=== PATIENT | female | born 1975 | race Caucasian/White ===

== ENCOUNTER 2021-12-03 18:21 | Inpatient (IN) ==
[2021-12-03] MEDS ORDERED: ZOFRAN INJ 4 MG VIAL ONE ×2 (18:48→20:49)
[2021-12-03] MEDS ORDERED: ZOFRAN INJ 4 MG VIAL IVP ONE ×2 (18:48→20:47)
[2021-12-03] MEDS ORDERED: APRESOLINE INJ 20 MG VIAL IVP ONE (19:46)
[2021-12-03] MEDS ORDERED: NS 1,000 ML IV 1,000 ML IV ONE (19:46)
[2021-12-03] MEDS ORDERED: APRESOLINE INJ 20 MG VIAL ONE (19:47)
[2021-12-03] MEDS ORDERED: NS 1,000 ML IV 1,000 ML ONE (19:47)
[2021-12-03 19:58] LABS: HEMOGLOBIN 10.9 g/dL (12.0-16.0); MEAN PLATELET VOLUME 7.7 fL (7.4-11.0); NEUTROPHILS # (AUTO) 7.8 x10^3/uL (2.2-4.8)
[2021-12-03] MEDS ORDERED: LEVSIN ORAL DROPS PO ONE (19:59)
[2021-12-03 20:02] LABS: BASOPHILS % (AUTO) 0.4 % (0.2-1.0); EOSINOPHILS % (AUTO) 0.1 % (0.9-2.9); HEMATOCRIT 31.6 % (36.0-47.0); LYMPHOCYTES # (AUTO) 0.9 X10^3/uL (1.3-2.9); LYMPHOCYTES % (AUTO) 9.9 % (21.0-51.0); MEAN CORPUSCULAR HEMOGLOBIN 31.8 pg (27.0-34.0); MEAN CORPUSCULAR HGB CONC 34.6 g/dL (33.0-35.0); MEAN CORPUSCULAR VOLUME 91.9 fL (80.0-100.0); MONOCYTES # (AUTO) 0.5 x10^3/uL (0.3-0.8); MONOCYTES % (AUTO) 5.8 % (0.0-13.0); NEUTROPHILS % (AUTO) 83.8 % (42.0-75.0); RED BLOOD COUNT 3.44 X10^6/uL (3.5-5.4); RED CELL DISTRIBUTION WIDTH 13.5 % (11.6-16.5); WHITE BLOOD COUNT 9.3 X10^3/uL (3.6-10.0)
[2021-12-03 20:05] LABS: ALANINE AMINOTRANSFERASE 83 Units/L (12-78); ALKALINE PHOSPHATASE 98 Units/L (46-116); AMYLASE 60 Units/L (25-115); ASPARTATE AMINO TRANSFERASE 34 Units/L (15-37); BLOOD UREA NITROGEN 6 mg/dL (7-18); CALCIUM 8.8 mg/dL (8.5-10.1); CARBON DIOXIDE 27.6 mmol/L (21-32); CHLORIDE 105 mmol/L (98-107); CREATININE 0.65 mg/dL (0.55-1.02); LIPASE 173 Units/L (73-393); SODIUM 142 mmol/L (136-145); TOTAL PROTEIN 7.6 g/dL (6.4-8.2); eGFR NON BLACK RACES > 60 (>60)
[2021-12-03] MEDS ORDERED: TORADOL 30 MG VIAL IVP ONE (20:26)
[2021-12-03] MEDS ORDERED: TORADOL 30 MG VIAL ONE (20:28)
[2021-12-03 20:30] LABS: MAGNESIUM 2.2 mg/dL (1.7-2.9); TSH (3RD GENERATION) 1.311 uIU/mL (0.358-3.74)
[2021-12-03] MEDS ORDERED: MORPHINE SULFATE INJ 2 MG INJ IVP ONE (20:47)
[2021-12-03] MEDS ORDERED: MORPHINE SULFATE INJ 2 MG INJ ONE (20:48)
--- NOTE | 2021-12-03 20:51 | ED.ABDFE ---
HPI Time Seen Time Seen by Provider: 12/03/21 19:44 PCP Primary Care Physician: LUCILA STONE HPI Comment HPI Comment: According to pt she was feeling better over the last 3-4 days after being transfererd from [facility] to [place] on 11/23 2021 .Pt completed the course of flagyl and cipro .Started with nausea vomiting and gnawing of abdomianl pain approx 3 days has gradually worsened.hence the visit .Furthermore due to pt experiencing hypotension ,her bp medication of lisinopril/hctz ()was decreased to 1/2 of of the dose.Pt was not given prescription for it and has not been taking any bp medication for over a week .concerned that her bp may drop . Complaint Doctors Chief Complaint Comments: abdominal pain Chief Complaint:: PT STATES THAT AROUND 3AM SHE HAD SUDDEN ONSET OF NAUSEA AND VOMITING,DIARRHEA, INABILITY TO KEEP LIQUIDS DOWN, AND INTERMITTENT PERIUM BILICAL GNAWLING PAIN THAT IS WORSE WITH FOOD. Self Treatment fo Chief Complaint: IBUPROFEN AT 4PM COVID-19 Coronavirus risk:travel/contact w/high risk person: No Has patient experienced Coronavirus symptoms: No Reviewed Nurses Notes Review: Yes Source History Provided: Patient Mode of arrival Mode of Arrival: Ambulatory Timing Onset of Chief Complaint: 12/03/21 Came on: Gradually Duration Since Onset: Intermittent Duration: Days Location Location: RUQ, Epigastric and Periumbilical Severity Severity: Severe Quality Quality: Other (gnawing ) Context History of: Similar pain (dx) Modifying factors Worsening Factors: Food Improving Factors: Nothing Associated signs and symptoms Associated Signs and Symptoms: Nausea and Vomiting PMH PMH Past Medical History: Yes Past Medical History: Migraines, Hypertension and Hypothyroidism Past Medical History Comment: SEASONAL ALLERGIES, INSOMNIA Past Surgical History: No Surgical History: No History Family History History of Family Medical Conditions: Yes Family Medical History: Hypertension Family Medical History Comment: HYPOTHYROIDISM, MIGRAINES Social History Does patient currently use any type of tobacco product: No Have you used tobacco products in the last 12 months: No Type of Tobacco Use: None Does any household member use tobacco: No Alcohol Use: None Do you use any recreational Drugs:: No Lives With: Family Lives Where: Home Travel Risk Coronavirus risk:travel/contact w/high risk person: No Has patient experienced Coronavirus symptoms: No Infectious screening In the last 2 months have you had wt loss of >10#?: NO Have you had fever, night sweats or hemotysis?: No Have you traveled outside the country in the last 6 months?: No Isolation: Standard ROS Review of Systems Constitutional: No Symptoms Reported, Malaise, Weakness and Fatigue Eyes: See HPI ENTM: No Symptoms Reported Respiratoy: No Symptoms Reported Cardiovascular: No Symptoms Reported Gastrointestinal/Abdominal: See HPI Genitourinary: No Symptoms Reported Neurological: No Symptoms Reported Musculoskeletal: No Symptoms Reported Integumentary: No Symptoms Reported Hematologic/Lymphatic: No Symptoms Reported Endocrine: No Symptoms Reported Psychiatric: No Symptoms Reported PE Vital Signs Vitals: Temperature 97.8 F Pulse Rate 109 Respiratory Rate 14 Blood Pressure [Left Arm] 82/53 Blood Pressure 197/101 O2 Sat by Pulse Oximetry 99 General Limitations: No Limitations General Appearance: In Distress Head Head Exam: Atraumatic and Normocephalic Eyes Eye exam: PERRL and Other (pallor ) ENT ENT Exam: Mucous Membranes Moist Neck Neck Exam: Normal Inspection and Full ROM Chest Chest Inspection: Normal Inspection and Symmetric Chest Wall Rise Respiratory Respiratory Exam: Normal Lung Sounds Bilat Respiratory Exam: Bilateral: Clear to Auscultation Cardiovascular Cardiovascular Exam: +S1 and +S2 Abdominal Exam Abdominal Exam: Soft and Tenderness Abdominal Tenderness: RUQ and Epigastrium Extremeties Extremities Exam: Normal Inspection and Full ROM Neurologic Neurological Exam: Alert Skin Skin Exam: Pallor MDM Additional Information Obtained From Additional information provided by: Old Records Differential Diagnosis Differential Diagnosis- Considerations may include:: Other (comments) (hypertensive urgency ) Other differential diagnosis: abdominal pain gastritis,PUD pancreatitis ,gastroenetritis due to flagyl , COURSE Treatment Treatment: CBC,CMP,TSH ,iv TORADOL No impovementin pain ,Morphine 2 mg IV ,apresoline 10 mg .IV protonix .spoke with Dr Masters agreed to admit patinet for hypertensive urgency ,anemia ,abdomianl pain ,hypokalemia ROR Labs Reviewed Laboratory Results Reviewed?: Yes Result Diagrams: 12/03/21 18:47 12/03/21 18:47 Laboratory: WBC 9.3 X10^3/uL (3.6-10.0) 12/03/21 18:47 RBC 3.44 X10^6/uL (3.5-5.4) L 12/03/21 18:47 Hgb 10.9 g/dL (12.0-16.0) L 12/03/21 18:47 Hct 31.6 % (36.0-47.0) L 12/03/21 18: MCV 91.9 fL (80.0-100.0) 12/03/21 18: MCH 31.8 pg (27.0-34.0) 12/03/21 18: MCHC 34.6 g/dL (33.0-35.0) 12/03/21 18: RDW 13.5 % (11.6-16.5) 12/03/21 18: Plt Count 459 X10^3/uL (150.0-450.0) H 12/03/21 18: MPV 7.7 fL (7.4-11.0) 12/03/21 18: Neut % (Auto) 83.8 % (42.0-75.0) H 12/03/21 18: Lymph % (Auto) 9.9 % (21.0-51.0) L 12/03/21 18:47 [place] % (Auto) 5.8 % (0.0-13.0) 12/03/21 18: Eos % (Auto) 0.1 % (0.9-2.9) L 12/03/21 18: Baso % (Auto) 0.4 % (0.2-1.0) 12/03/21 18:47 Neut # (Auto) 7.8 x10^3/uL (2.2-4.8) H 12/03/21 18:47 Lymph # (Auto) 0.9 X10^3/uL (1.3-2.9) L 12/03/21 18:47 [place] # (Auto) 0.5 x10^3/uL (0.3-0.8) 12/03/21 18: Eos # (Auto) 0.0 x10^3/uL (0.0-0.2) 12/03/21 18: Baso # (Auto) 0.0 X10^3/uL (0.0-0.1) 12/03/21 18: Absolute Nucleated RBC 0.2 /100WBC 12/03/21 18: Sodium 142 mmol/L (136-145) 12/03/21 18:47 Corrected Sodium TNP 12/03/21 18:47 Potassium 3.0 mmol/L (3.5-5.1) L* 12/03/21 18:47 Chloride 105 mmol/L (98-107) 12/03/21 18:47 Carbon Dioxide 27.6 mmol/L (21-32) 12/03/21 18:47 BUN 6 mg/dL (7-18) L 12/03/21 18:47 Creatinine 0.65 mg/dL (0.55-1.02) 12/03/21 18:47 Est GFR (MDRD) Af Amer > 60 (>60) 12/03/21 18:47 Est GFR (MDRD) Non-Af > 60 (>60) 12/03/21 18:47 Glucose 105 mg/dL (65-99) H 12/03/21 18:47 Calcium 8.8 mg/dL (8.5-10.1) 12/03/21 18:47 Corrected Calcium TNP 12/03/21 18:47 Magnesium 2.2 mg/dL (1.7-2.9) 12/03/21 18:47 Total Bilirubin 0.90 mg/dL (0.2-1.0) 12/03/21 18:47 AST 34 Units/L (15-37) 12/03/21 18:47 ALT 83 Units/L (12-78) H 12/03/21 18:47 Alkaline Phosphatase 98 Units/L (46-116) 12/03/21 18:47 Total Protein 7.6 g/dL (6.4-8.2) 12/03/21 18:47 Albumin 4.0 g/dL (3.4-5.0) 12/03/21 18:47 Globulin 3.6 g/dL (2.5-4.5) 12/03/21 18:47 Albumin/Globulin Ratio 1.1 Ratio (1.1-2.1) 12/03/21 18:47 Amylase 60 Units/L (25-115) 12/03/21 18:47 Lipase 173 Units/L (73-393) 12/03/21 18:47 TSH 3rd Generation 1.311 uIU/mL (0.358-3.74) 12/03/21 18:47 SARS CoV-2 RNA Rapid MACK Negative (NEGATIVE) 12/03/21 20:49 Opioid Opioid Risk Tool Age (Omid box if 16-45): No History of Preadolescent Sexual Abuse: No Total: 0 Total Score Risk Category: Low Risk Copyright: Sai MUNGUIA predicting aberrant behaviors Diagnosis Discharge Problem: Hypokalemia, Abdominal pain, Acute epigastric pain, Anemia, Hypertensive urgency Instructions Forms: [facility] Patient Portal Social Distancing
[2021-12-03] MEDS ORDERED: NS + KCL 40 MEQ/L 1,000 ML IV ONE (20:59)
[2021-12-03] MEDS: NS + KCL 40 MEQ/L 1,000 ML IV SCH (21:07)
[2021-12-03] MEDS ORDERED: XYLOCAINE 2 % (PLAIN) ONE (21:36)
[2021-12-03] MEDS: PROTONIX INJ 40 MG VIAL IVP SCH (22:47)
[2021-12-04] MEDS: MORPHINE SULFATE INJ 2 MG INJ IVP PRN ×6 (00:52→21:32)
[2021-12-04] MEDS: NS + KCL 40 MEQ/L 1,000 ML IV SCH ×2 (00:59→05:09)
[2021-12-04 04:59] LABS: BASOPHILS # (AUTO) 0.1 X10^3/uL (0.0-0.1); BASOPHILS % (AUTO) 0.8 % (0.2-1.0); EOSINOPHILS % (AUTO) 0.3 % (0.9-2.9); HEMATOCRIT 24.8 % (36.0-47.0); HEMOGLOBIN 8.6 g/dL (12.0-16.0); LYMPHOCYTES # (AUTO) 1.3 X10^3/uL (1.3-2.9); LYMPHOCYTES % (AUTO) 18.1 % (21.0-51.0); MEAN CORPUSCULAR HEMOGLOBIN 32.3 pg (27.0-34.0); MEAN CORPUSCULAR HGB CONC 34.7 g/dL (33.0-35.0); MEAN CORPUSCULAR VOLUME 93.1 fL (80.0-100.0); MEAN PLATELET VOLUME 7.3 fL (7.4-11.0); MONOCYTES # (AUTO) 0.6 x10^3/uL (0.3-0.8); MONOCYTES % (AUTO) 8.5 % (0.0-13.0); NEUTROPHILS # (AUTO) 5.1 x10^3/uL (2.2-4.8); NEUTROPHILS % (AUTO) 72.3 % (42.0-75.0); RED BLOOD COUNT 2.66 X10^6/uL (3.5-5.4); RED CELL DISTRIBUTION WIDTH 13.5 % (11.6-16.5)
[2021-12-04 05:04] LABS: BLOOD UREA NITROGEN 7 mg/dL (7-18); CALCIUM 7.6 mg/dL (8.5-10.1); CARBON DIOXIDE 23.2 mmol/L (21-32); CHLORIDE 113 mmol/L (98-107); CREATININE 0.53 mg/dL (0.55-1.02); SODIUM 146 mmol/L (136-145); eGFR NON BLACK RACES > 60 (>60)
[2021-12-04] MEDS: PROTONIX INJ 40 MG VIAL IVP SCH (08:45)
[2021-12-04] MEDS: SYNTHROID 88 mcg TAB PO SCH (08:45)
[2021-12-04 10:42] LABS: SERUM PREGNANCY TEST, QUAL NEGATIVE <10 mIU/mL
[2021-12-04] MEDS: NS 1,000 ML IV 1,000 ML IV SCH (11:10)
[2021-12-04] MEDS ORDERED: KETAMINE 50 MG/5 ML-NACL SYRNG ONE (14:57)
[2021-12-04] MEDS ORDERED: DIPRIVAN VIAL 20 ML ONE (14:57)
[2021-12-04] MEDS ORDERED: VERSED ONE (15:28)
[2021-12-04] MEDS ORDERED: APRESOLINE INJ 20 MG VIAL ONE ×2 (15:45)
[2021-12-04] MEDS: APRESOLINE INJ 20 MG VIAL IVP PRN ×2 (16:17→21:40)
[2021-12-04] MEDS ORDERED: ZOFRAN INJ 4 MG VIAL IVP ONE (16:24)
[2021-12-04] MEDS ORDERED: ZOFRAN INJ 4 MG VIAL ONE ×2 (16:26→23:05)
[2021-12-04 21:07] VITALS: BMI 19.1
[2021-12-04] MEDS: ZOFRAN INJ 4 MG VIAL IVP PRN (23:10)
[2021-12-05] MEDS: NS 1,000 ML IV 1,000 ML IV SCH ×2 (00:09→17:36)
[2021-12-05] MEDS: MORPHINE SULFATE INJ 2 MG INJ IVP PRN ×4 (01:21→22:48)
[2021-12-05] MEDS: APRESOLINE INJ 20 MG VIAL IVP PRN ×5 (02:15→21:14)
[2021-12-05] MEDS ORDERED: MORPHINE SULFATE INJ 2 MG INJ IVP ONE (03:43)
[2021-12-05] MEDS: ZOFRAN INJ 4 MG VIAL IVP PRN ×4 (04:30→23:05)
[2021-12-05 05:19] LABS: BASOPHILS # (AUTO) 0.1 X10^3/uL (0.0-0.1); BASOPHILS % (AUTO) 0.5 % (0.2-1.0); EOSINOPHILS % (AUTO) 0.1 % (0.9-2.9); HEMATOCRIT 29.2 % (36.0-47.0); HEMOGLOBIN 9.9 g/dL (12.0-16.0); LYMPHOCYTES # (AUTO) 0.8 X10^3/uL (1.3-2.9); LYMPHOCYTES % (AUTO) 6.8 % (21.0-51.0); MEAN CORPUSCULAR HEMOGLOBIN 31.6 pg (27.0-34.0); MEAN CORPUSCULAR HGB CONC 34.1 g/dL (33.0-35.0); MEAN CORPUSCULAR VOLUME 92.8 fL (80.0-100.0); MEAN PLATELET VOLUME 7.2 fL (7.4-11.0); MONOCYTES # (AUTO) 0.5 x10^3/uL (0.3-0.8); MONOCYTES % (AUTO) 4.7 % (0.0-13.0); NEUTROPHILS # (AUTO) 10.3 x10^3/uL (2.2-4.8); NEUTROPHILS % (AUTO) 87.9 % (42.0-75.0); RED BLOOD COUNT 3.15 X10^6/uL (3.5-5.4); RED CELL DISTRIBUTION WIDTH 13.5 % (11.6-16.5); WHITE BLOOD COUNT 11.7 X10^3/uL (3.6-10.0)
[2021-12-05 05:32] LABS: ALANINE AMINOTRANSFERASE 47 Units/L (12-78); ALBUMIN 3.4 g/dL (3.4-5.0); ALKALINE PHOSPHATASE 70 Units/L (46-116); ASPARTATE AMINO TRANSFERASE 22 Units/L (15-37); BLOOD UREA NITROGEN 8 mg/dL (7-18); CALCIUM 8.2 mg/dL (8.5-10.1); CARBON DIOXIDE 18.7 mmol/L (21-32); CHLORIDE 106 mmol/L (98-107); CREATININE 0.47 mg/dL (0.55-1.02); SODIUM 138 mmol/L (136-145); TOTAL PROTEIN 6.6 g/dL (6.4-8.2); eGFR NON BLACK RACES > 60 (>60)
[2021-12-05] MEDS: PHENERGAN INJ 25 MG IM PRN ×2 (07:47→15:24)
[2021-12-05] MEDS: DEMEROL INJ IVP PRN ×4 (07:48→20:24)
[2021-12-05] MEDS: PROTONIX INJ 40 MG VIAL IVP SCH (08:39)
--- NOTE | 2021-12-05 09:03 | DR.H&P ---
H&P - History & Physical for Day of: H&P Date: 12/03/21 - Chief Complaint Chief Complaint: SUDDEN ONSET OF NAUSEA AND VOMITING,DIARRHEA, INABILITY TO KEEP LIQUIDS DOWN - History of Present Illness History of Present Illness: Pt is 46 WF, ER admission with co she was feeling better over the last 3-4 days after being transfererd from [facility] to [place] on 11/23 2021 .Pt completed the course of flagyl and cipro .Started with nausea vomiting and gnawing of abdomianl pain approx 3 days has gradually worsened.hence the visit .Furthermore due to pt experiencing hypotension ,her bp medication of lisinopril/hctz ()was decreased to 1/2 of of the dose.Pt was not given prescription for it and has not been taking any bp medication for over a week, pt concerned that her bp may drop.Pt admitted for treatment and evaluation of acute illness. - Past Medical History Past Medical History: Hypertension, Hypothyroidism, Migraines - Past Surgical History Surgical History: No History - Family History Family Medical History: Hypertension - Social History Does patient currently use any type of tobacco product: No Have you used tobacco products in the last 12 months: No Type of Tobacco Use: None Does any household member use tobacco: No Alcohol Use: Occasionally Drug Use: Prescription Drugs - Medications Home Medications: No Known Drug Allergies Allergy (Verified 11/23/21 10:01) - Review of Systems Constitutional: Weakness Eyes: No Symptoms Reported ENT: No Symptoms Reported Respiratory: No Symptoms Reported Cardiovascular: No Symptoms Reported Gastrointestinal: Nausea, Vomiting, Abdominal Pain, Diarrhea Genitourinary: No Symptoms Reported Musculoskeletal: No Symptoms Reported Skin: No Symptoms Reported Neurological: No Symptoms Reported - Physical Exam Vital Signs: Temperature 97.9 F Pulse Rate 93 Respiratory Rate 17 Blood Pressure [Left Arm] 147/78 Blood Pressure 161/83 O2 Sat by Pulse Oximetry 96 Oriented: Normal Eyes: Normal Ear: Normal Nose: Normal Throat: Normal Respiratory: Clear Throughout Cardiovascular: Normal : Normal Auscultation: Bowel Sounds: Normal Palpation: Normal Tenderness: Epigastric Skin: Decreased Turgur Musculoskeletal: Normal Psychiatric: Normal Mood Description: Calm Speech Pattern: Clear, Appropriate - Assessment/Plan (1) Acute epigastric pain Status: Acute Plan: ADMIT, GI CONSULT. PPI THERAPY, BP CONTROL. GENTLE IV HYDRATION. PAIN AND NAUSEA CONTROL. I &OS, ELECTROLYTE REPLACEMENT (2) Abdominal pain Status: Acute (3) Hypertensive urgency Status: Acute (4) Gastritis Status: Acute - Allergies Allergies/Adverse Reactions: Allergies Allergy/AdvReac Type Severity Reaction Status Date / Time No Known Drug Allergies Allergy Verified 11/23/21 10:01
[2021-12-05] MEDS: SYNTHROID 88 mcg TAB PO SCH (15:24)
--- NOTE | 2021-12-05 15:26 | NM ---
HISTORY: RUQ pain, abdominal pain. Epigastric pain.EXAM: Nuclear Medicine HIDA ExamTechnique: Multiple scintigraphic images of the abdomen were obtained the intravenous administration of 5.5 mCi of technetium labeled [Choletec]. Following distention of the gallbladder with radiotracer a bottle of Ensure was given.An estimated gallbladder ejection fraction was calculated based on this physiologic response.Findings: Homogeneous uptake of radiotracer is seen throughout the liver. The intrabiliary ductal system is observed normally.The common hepatic and common bile duct grossly appear unremarkable with normal biliary-bowel transit. The gallbladder is observed to fill normally without evidence for acute cholecystitis. After the administration of ensure, however, an abnormally low gallbladder ejection fraction of 0% (normal > 35%) is observed. Although many etiologies (certain medications, cholangitis, pancreatitis, sepsis, etc.) can account for a low gallbladder ejection fraction, in the outpatient setting, the most common etiology is chronic cholecystitis.IMPRESSION:1. Hepatobiliary imaging study demonstrates no evidence for acute hepatic dysfunction or acute cholecystitis.2. Low gallbladder ejection fraction of 0%, most likely reflecting chronic cholecystitis, as discussed above.Electronically signed by: HOOD OSPINA III (Dec 05, 2021 15:25:11)
[2021-12-05] MEDS ORDERED: CATAPRES TAB 0.1 MG PO SCH (15:48)
[2021-12-05] MEDS ORDERED: PROVENTIL NEB TX 0.083% 2.5MG/ 3ML NEB ONE (17:11)
[2021-12-05] MEDS: CATAPRES TAB 0.1 MG PO PRN (17:59)
[2021-12-05] MEDS: ZOSYN VIAL 3.375 GRAMS 3.375 G in NS 100 ML IV 100 ML IV SCH (21:14)
[2021-12-05] MEDS: NS 500 ML IV 500 ML IV PRN (21:15)
[2021-12-06] MEDS: DEMEROL INJ IVP PRN ×5 (00:04→21:01)
[2021-12-06] MEDS: APRESOLINE INJ 20 MG VIAL IVP PRN ×4 (01:30→22:55)
--- NOTE | 2021-12-06 02:17 | RAD ---
PROCEDURE: Chest X-ray 1 View .HISTORY: Preoperative study for cholecystectomy.TECHNIQUE: AP view .COMPARISON: 11/23/2021.TECHNICAL QUALITY: Satisfactory .FINDINGS:Normal size heart .Mediastinum and hilar regions show no masses or lymphadenopathy .Normal central vascularity .No pulmonary consolidation, masses, pleural fluid, or pneumothorax .No acute bony abnormality .IMPRESSION:No active cardiopulmonary disease .Electronically signed by: Bill Schaffer (Dec 06, 2021 02:15:56)
[2021-12-06] MEDS: MORPHINE SULFATE INJ 2 MG INJ IVP PRN ×6 (02:38→22:59)
[2021-12-06] MEDS: ZOSYN VIAL 3.375 GRAMS 3.375 G in NS 100 ML IV 100 ML IV SCH ×5 (02:38→21:00)
[2021-12-06] MEDS: ZOFRAN INJ 4 MG VIAL IVP PRN ×4 (02:38→22:59)
[2021-12-06 04:32] LABS: BASOPHILS % (AUTO) 0.2 % (0.2-1.0); HEMATOCRIT 31.6 % (36.0-47.0); HEMOGLOBIN 10.6 g/dL (12.0-16.0); LYMPHOCYTES # (AUTO) 0.8 X10^3/uL (1.3-2.9); LYMPHOCYTES % (AUTO) 5.8 % (21.0-51.0); MEAN CORPUSCULAR HEMOGLOBIN 31.3 pg (27.0-34.0); MEAN CORPUSCULAR HGB CONC 33.5 g/dL (33.0-35.0); MEAN CORPUSCULAR VOLUME 93.4 fL (80.0-100.0); MEAN PLATELET VOLUME 7.6 fL (7.4-11.0); MONOCYTES # (AUTO) 0.7 x10^3/uL (0.3-0.8); MONOCYTES % (AUTO) 4.6 % (0.0-13.0); NEUTROPHILS % (AUTO) 89.4 % (42.0-75.0); RED BLOOD COUNT 3.39 X10^6/uL (3.5-5.4); RED CELL DISTRIBUTION WIDTH 13.6 % (11.6-16.5); WHITE BLOOD COUNT 14.5 X10^3/uL (3.6-10.0)
[2021-12-06 04:51] LABS: ALANINE AMINOTRANSFERASE 38 Units/L (12-78); ALBUMIN 3.5 g/dL (3.4-5.0); ALKALINE PHOSPHATASE 73 Units/L (46-116); ASPARTATE AMINO TRANSFERASE 17 Units/L (15-37); BLOOD UREA NITROGEN 8 mg/dL (7-18); CALCIUM 8.2 mg/dL (8.5-10.1); CARBON DIOXIDE 18.1 mmol/L (21-32); CHLORIDE 105 mmol/L (98-107); CREATININE 0.52 mg/dL (0.55-1.02); MAGNESIUM 2.1 mg/dL (1.7-2.9); SODIUM 142 mmol/L (136-145); TOTAL PROTEIN 6.8 g/dL (6.4-8.2); eGFR NON BLACK RACES > 60 (>60)
[2021-12-06] MEDS: NS 1,000 ML IV 1,000 ML IV SCH (06:12)
[2021-12-06] MEDS ORDERED: BACTROBAN TOPICAL OINT ONE (06:36)
[2021-12-06] MEDS ORDERED: NS 100 ML IV 100 ML ONE (06:58)
[2021-12-06] MEDS ORDERED: LR 1,000 ML IV 1,000 ML IV ONE (06:58)
[2021-12-06] MEDS ORDERED: ANCEF VIAL 1 GRAM ONE (06:58)
[2021-12-06] MEDS ORDERED: ZEMURON 50 MG VIAL ONE (07:39)
[2021-12-06] MEDS ORDERED: NORMODYNE INJ 100 MG VIAL ONE (07:39)
[2021-12-06] MEDS ORDERED: ULTANE GAS IN ONE (07:39)
[2021-12-06] MEDS ORDERED: DECADRON INJ ONE (07:39)
[2021-12-06] MEDS ORDERED: ROBINUL ONE (07:39)
[2021-12-06] MEDS ORDERED: ZOFRAN INJ 4 MG VIAL ONE (07:39)
[2021-12-06] MEDS ORDERED: KETAMINE HCL ONE (07:39)
[2021-12-06] MEDS ORDERED: NS IRRIG 3000 ML + EPI 1 MG IR ONE (09:26)
[2021-12-06] MEDS: PROTONIX INJ 40 MG VIAL IVP SCH ×2 (10:38→23:20)
[2021-12-06] MEDS: SYNTHROID 88 mcg TAB PO SCH (10:39)
[2021-12-06] MEDS: D5 1/2 NS 1,000 ML 1,000 ML IV SCH (10:44)
[2021-12-06 10:45] LABS: BASOPHILS % (AUTO) 0 % (0.2-1.0); HEMOGLOBIN 10.1 g/dL (12.0-16.0); LYMPHOCYTES # (AUTO) 0.4 X10^3/uL (1.3-2.9); LYMPHOCYTES % (AUTO) 2.3 % (21.0-51.0); MEAN CORPUSCULAR HEMOGLOBIN 31.8 pg (27.0-34.0); MEAN CORPUSCULAR HGB CONC 33.6 g/dL (33.0-35.0); MEAN CORPUSCULAR VOLUME 94.6 fL (80.0-100.0); MEAN PLATELET VOLUME 7.4 fL (7.4-11.0); MONOCYTES # (AUTO) 0.2 x10^3/uL (0.3-0.8); MONOCYTES % (AUTO) 1.1 % (0.0-13.0); NEUTROPHILS # (AUTO) 15.5 x10^3/uL (2.2-4.8); NEUTROPHILS % (AUTO) 96.6 % (42.0-75.0); RED BLOOD COUNT 3.17 X10^6/uL (3.5-5.4); RED CELL DISTRIBUTION WIDTH 14.2 % (11.6-16.5); WHITE BLOOD COUNT 16.1 X10^3/uL (3.6-10.0)
[2021-12-06 11:00] LABS: ALANINE AMINOTRANSFERASE 38 Units/L (12-78); ALBUMIN 3.2 g/dL (3.4-5.0); ALKALINE PHOSPHATASE 61 Units/L (46-116); ASPARTATE AMINO TRANSFERASE 28 Units/L (15-37); BLOOD UREA NITROGEN 10 mg/dL (7-18); CALCIUM 7.9 mg/dL (8.5-10.1); CARBON DIOXIDE 19.7 mmol/L (21-32); CHLORIDE 106 mmol/L (98-107); COR CA(FOR HYPOALB) 8.5 mg/dL (8.5-10.1); COR NA(FOR HYPERGLY) 142 mmol/L (136-145); SODIUM 142 mmol/L (136-145); TOTAL PROTEIN 6.4 g/dL (6.4-8.2); eGFR NON BLACK RACES > 60 (>60)
[2021-12-06 11:09] LABS: BAND NEUTROPHILS % 1 % (0-10); PLATELET MORPHOLOGY COMMENT NORMAL (NORMAL)
[2021-12-06] MEDS: CATAPRES TAB 0.1 MG PO PRN (15:30)
[2021-12-06] MEDS: PHENERGAN INJ 25 MG IM PRN ×2 (17:21→21:07)
[2021-12-06] MEDS: REGLAN INJ 10 MG VIAL IVP PRN (23:20)
[2021-12-07] MEDS: DEMEROL INJ IVP PRN ×6 (00:55→23:22)
[2021-12-07] MEDS: PHENERGAN INJ 25 MG IM PRN (01:30)
[2021-12-07] MEDS: APRESOLINE INJ 20 MG VIAL IVP PRN ×2 (03:00→21:40)
[2021-12-07] MEDS: D5 1/2 NS 1,000 ML 1,000 ML IV SCH ×4 (03:00→20:04)
[2021-12-07] MEDS: ZOFRAN INJ 4 MG VIAL IVP PRN ×2 (03:00→20:04)
[2021-12-07] MEDS: MORPHINE SULFATE INJ 2 MG INJ IVP PRN ×5 (03:00→20:04)
--- NOTE | 2021-12-07 03:13 | RAD ---
PROCEDURE: Abdomen X-ray 1 View .HISTORY: NG TUBE PLACEMENT .TECHNIQUE: AP supine abdomen view .COMPARISON: None .TECHNICAL QUALITY: Satisfactory .FINDINGS:NG tube tip projected over body of the stomach with the side hole at the GE junction and repositioning more distally 5 cm may be helpful.No dilated bowel loops.Surgical clips right upper quadrant.IMPRESSION:NG tube tip projected over the body of the stomach with the side hole at the GE junction and repositioning more distally 5 cm recommended.Electronically signed by: Bill Schaffer (Dec 07, 2021 03:12:38)
[2021-12-07] MEDS: ZOSYN VIAL 3.375 GRAMS 3.375 G in NS 100 ML IV 100 ML IV SCH ×3 (05:07→22:19)
[2021-12-07 05:32] LABS: BASOPHILS # (AUTO) 0.1 X10^3/uL (0.0-0.1); BASOPHILS % (AUTO) 0.4 % (0.2-1.0); HEMATOCRIT 28.1 % (36.0-47.0); HEMOGLOBIN 9.8 g/dL (12.0-16.0); LYMPHOCYTES # (AUTO) 0.8 X10^3/uL (1.3-2.9); LYMPHOCYTES % (AUTO) 5.2 % (21.0-51.0); MEAN CORPUSCULAR HEMOGLOBIN 32.4 pg (27.0-34.0); MEAN CORPUSCULAR VOLUME 92.6 fL (80.0-100.0); MEAN PLATELET VOLUME 7.4 fL (7.4-11.0); MONOCYTES # (AUTO) 0.9 x10^3/uL (0.3-0.8); NEUTROPHILS # (AUTO) 13.1 x10^3/uL (2.2-4.8); NEUTROPHILS % (AUTO) 88.4 % (42.0-75.0); RED BLOOD COUNT 3.04 X10^6/uL (3.5-5.4); RED CELL DISTRIBUTION WIDTH 14.2 % (11.6-16.5); WHITE BLOOD COUNT 14.9 X10^3/uL (3.6-10.0)
[2021-12-07 05:43] LABS: ALANINE AMINOTRANSFERASE 35 Units/L (12-78); ALBUMIN 3.1 g/dL (3.4-5.0); ALKALINE PHOSPHATASE 72 Units/L (46-116); ASPARTATE AMINO TRANSFERASE 26 Units/L (15-37); BLOOD UREA NITROGEN 7 mg/dL (7-18); CARBON DIOXIDE 24.2 mmol/L (21-32); CHLORIDE 105 mmol/L (98-107); COR CA(FOR HYPOALB) 8.7 mg/dL (8.5-10.1); COR NA(FOR HYPERGLY) 139 mmol/L (136-145); CREATININE 0.48 mg/dL (0.55-1.02); SODIUM 139 mmol/L (136-145); TOTAL PROTEIN 6.2 g/dL (6.4-8.2); eGFR NON BLACK RACES > 60 (>60)
[2021-12-07] MEDS ORDERED: POTASSIUM CHLORIDE LIQ 20 MEQ UDC PO PRN (06:23)
[2021-12-07] MEDS ORDERED: POTASSIUM CHL 60 MEQ/NS 0.45% 500 ML IV PRN (06:23)
[2021-12-07] MEDS ORDERED: KLOR-CON PO PRN (06:23)
[2021-12-07] MEDS ORDERED: POTASSIUM CHL 40 MEQ/NS 0.45% 500 ML IV PRN (06:23)
[2021-12-07] MEDS ORDERED: MICRO K EXTEN CAP 10 MEQ PO PRN (06:23)
[2021-12-07] MEDS: SYNTHROID 88 mcg TAB PO SCH (08:48)
[2021-12-07] MEDS: PROTONIX INJ 40 MG VIAL IVP SCH ×2 (09:01→20:05)
[2021-12-07] MEDS: K-RIDER 10 MEQ/NS 100 ML 10 MEQ/100 ML BAG IV PRN ×6 (09:02→23:00)
--- NOTE | 2021-12-07 10:26 | DR.PROGNOT ---
Hospital Progress Notes - Progress Note for Day of: Progress Note Date: 12/07/21 - Chief Complaint Chief Complaint: post op lap verona and drainage .. was having excessive vomiting last night ..had to insert NGT which was draining large amount . moderate incisional pain . mild drainage in DEENA .. BP is better controlled . LFT art normal .. Hgb is stable .. - Past Medical Family Social History Past Med/Fam/Surg Hx: No changes since H&P Allergies: Allergies No Known Drug Allergies Allergy (Verified 11/23/21 10:01) - Review Of Systems ROS: No change since H&P - Vital Signs Vital Signs: Temperature 99 F Pulse Rate 87 Respiratory Rate 13 Blood Pressure [Left Arm] 147/78 Blood Pressure 156/93 O2 Sat by Pulse Oximetry 96 - Physical Exam Oriented: Normal Eyes: Normal Ear: Normal Nose: Normal Throat: Normal Cardiovascular: Normal : Normal GI:Auscultation: Decreased GI:Palpation: Other (soft, flat abdomen with RT side tenderness .. BS + but hypoactive .. ) GI: Tenderness: Epigastric Skin: Decreased Turgur Musculoskeletal: Normal Psychiatric: Normal Mood Description: Calm Speech Pattern: Clear, Appropriate - Laboratory and Diagnostics Result Diagrams: 12/07/21 04:40 12/07/21 04:40 Labs: 12/05/21 17:42 Blood Blood Culture - Preliminary 12/05/21 17:32 Blood Blood Culture - Preliminary Laboratory WBC 14.9 X10^3/uL (3.6-10.0) H 12/07/21 04:40 RBC 3.04 X10^6/uL (3.5-5.4) L 12/07/21 04:40 Hgb 9.8 g/dL (12.0-16.0) L 12/07/21 04:40 Hct 28.1 % (36.0-47.0) L 12/07/21 04:40 MCV 92.6 fL (80.0-100.0) 12/07/21 04:40 MCH 32.4 pg (27.0-34.0) 12/07/21 04:40 MCHC 35.0 g/dL (33.0-35.0) 12/07/21 04:40 RDW 14.2 % (11.6-16.5) 12/07/21 04:40 Plt Count 503 X10^3/uL (150.0-450.0) H 12/07/21 04:40 Plt Count Comment Increased (ADEQUATE) A 12/06/21 10:22 MPV 7.4 fL (7.4-11.0) 12/07/21 04:40 Neut % (Auto) 88.4 % (42.0-75.0) H 12/07/21 04:40 Lymph % (Auto) 5.2 % (21.0-51.0) L 12/07/21 04:40 [place] % (Auto) 6.0 % (0.0-13.0) 12/07/21 04:40 Eos % (Auto) 0.0 % (0.9-2.9) L 12/07/21 04:40 Baso % (Auto) 0.4 % (0.2-1.0) 12/07/21 04:40 Neut # (Auto) 13.1 x10^3/uL (2.2-4.8) H 12/07/21 04:40 Lymph # (Auto) 0.8 X10^3/uL (1.3-2.9) L 12/07/21 04:40 [place] # (Auto) 0.9 x10^3/uL (0.3-0.8) H 12/07/21 04:40 Eos # (Auto) 0.0 x10^3/uL (0.0-0.2) 12/07/21 04:40 Baso # (Auto) 0.1 X10^3/uL (0.0-0.1) 12/07/21 04:40 Absolute Nucleated RBC 0.0 /100WBC 12/07/21 04:40 Total Counted 100 12/06/21 10:22 Neutrophils % (Manual) 98 % (39-76) H 12/06/21 10:22 Band Neutrophils % 1 % (0-10) 12/06/21 10:22 Lymphocytes % (Manual) 1 % (13-43) L 12/06/21 10:22 Plt Morphology Comment Normal (NORMAL) 12/06/21 10:22 RBC Morphology Normal (NORMAL) 12/06/21 10:22 PT 16.4 SECONDS (11.8-14.3) 12/06/21 10:22 INR Target Range - 12/06/21 10:22 INR 1.39 (0.8-1.3) H 12/06/21 10:22 Sodium 139 mmol/L (136-145) 12/07/21 04:40 Corrected Sodium 139 mmol/L (136-145) 12/07/21 04:40 Potassium 3.2 mmol/L (3.5-5.1) L 12/07/21 04:40 Chloride 105 mmol/L (98-107) 12/07/21 04:40 Carbon Dioxide 24.2 mmol/L (21-32) 12/07/21 04:40 BUN 7 mg/dL (7-18) 12/07/21 04:40 Creatinine 0.48 mg/dL (0.55-1.02) L 12/07/21 04:40 Est GFR (MDRD) Af Amer > 60 (>60) 12/07/21 04:40 Est GFR (MDRD) Non-Af > 60 (>60) 12/07/21 04:40 Glucose 118 mg/dL (65-99) H 12/07/21 04:40 POC Glucose (mg/dL) 121 mg/dL (65-99) H 12/07/21 01:07 Calcium 8.0 mg/dL (8.5-10.1) L 12/07/21 04:40 Corrected Calcium 8.7 mg/dL (8.5-10.1) 12/07/21 04:40 Magnesium 2.0 mg/dL (1.7-2.9) 12/07/21 04:40 Total Bilirubin 0.50 mg/dL (0.2-1.0) 12/07/21 04:40 AST 26 Units/L (15-37) 12/07/21 04:40 ALT 35 Units/L (12-78) 12/07/21 04:40 Alkaline Phosphatase 72 Units/L (46-116) 12/07/21 04:40 Total Protein 6.2 g/dL (6.4-8.2) L 12/07/21 04:40 Albumin 3.1 g/dL (3.4-5.0) L 12/07/21 04:40 Globulin 3.1 g/dL (2.5-4.5) 12/07/21 04:40 Albumin/Globulin Ratio 1.0 Ratio (1.1-2.1) L 12/07/21 04:40 Amylase 60 Units/L (25-115) 12/03/21 18:47 Lipase 173 Units/L (73-393) 12/03/21 18:47 TSH 3rd Generation 1.311 uIU/mL (0.358-3.74) 12/03/21 18:47 HCG, Qual Negative <10 mIU/mL 12/04/21 04:39 SARS CoV-2 RNA Rapid MACK Negative (NEGATIVE) 12/03/21 20:49 Tissue Pathology To follow 12/06/21 08:27 - Assessment and Plan 1: post op lap verona . gastroparesis or ileus . mesenteric hematoma of unknown etiology . HTN. to keep NGT , same ABT , Reglan , Protonix ... OOB and po care - Problem Patient Problems: Patient Problems Hypokalemia (Acute) E87.6 Abdominal pain (Acute) R10.9 Acute epigastric pain (Acute) R10.13 Anemia (Acute) D64.9 Hypertensive urgency (Acute) I16.0 Gastritis (Acute) K29.70
[2021-12-07] MEDS: REGLAN INJ 10 MG VIAL IVP PRN (23:22)
[2021-12-08] MEDS: ZOFRAN INJ 4 MG VIAL IVP PRN ×3 (01:21→14:35)
[2021-12-08] MEDS: MORPHINE SULFATE INJ 2 MG INJ IVP PRN ×4 (01:22→14:44)
[2021-12-08] MEDS: DEMEROL INJ IVP PRN ×5 (03:25→22:24)
[2021-12-08] MEDS: D5 1/2 NS 1,000 ML 1,000 ML IV SCH ×2 (03:41→12:00)
[2021-12-08 04:51] LABS: BASOPHILS # (AUTO) 0.1 X10^3/uL (0.0-0.1); BASOPHILS % (AUTO) 0.6 % (0.2-1.0); EOSINOPHILS % (AUTO) 0.1 % (0.9-2.9); HEMATOCRIT 26.9 % (36.0-47.0); HEMOGLOBIN 9.4 g/dL (12.0-16.0); LYMPHOCYTES # (AUTO) 0.9 X10^3/uL (1.3-2.9); LYMPHOCYTES % (AUTO) 5.6 % (21.0-51.0); MEAN CORPUSCULAR HEMOGLOBIN 31.9 pg (27.0-34.0); MEAN CORPUSCULAR VOLUME 91.3 fL (80.0-100.0); MONOCYTES # (AUTO) 0.9 x10^3/uL (0.3-0.8); MONOCYTES % (AUTO) 5.4 % (0.0-13.0); NEUTROPHILS # (AUTO) 14.4 x10^3/uL (2.2-4.8); NEUTROPHILS % (AUTO) 88.3 % (42.0-75.0); RED BLOOD COUNT 2.95 X10^6/uL (3.5-5.4); RED CELL DISTRIBUTION WIDTH 13.6 % (11.6-16.5); WHITE BLOOD COUNT 16.3 X10^3/uL (3.6-10.0)
[2021-12-08 05:19] LABS: ALANINE AMINOTRANSFERASE 29 Units/L (12-78); ALBUMIN 2.8 g/dL (3.4-5.0); ALKALINE PHOSPHATASE 59 Units/L (46-116); ASPARTATE AMINO TRANSFERASE 22 Units/L (15-37); BLOOD UREA NITROGEN 7 mg/dL (7-18); CALCIUM 7.6 mg/dL (8.5-10.1); CARBON DIOXIDE 25.6 mmol/L (21-32); CHLORIDE 102 mmol/L (98-107); COR CA(FOR HYPOALB) 8.6 mg/dL (8.5-10.1); CREATININE 0.53 mg/dL (0.55-1.02); SODIUM 136 mmol/L (136-145); TOTAL PROTEIN 5.7 g/dL (6.4-8.2); eGFR NON BLACK RACES > 60 (>60)
[2021-12-08] MEDS: ZOSYN VIAL 3.375 GRAMS 3.375 G in NS 100 ML IV 100 ML IV SCH ×3 (06:26→21:13)
[2021-12-08] MEDS: PHENERGAN INJ 25 MG IM PRN (07:30)
[2021-12-08] MEDS: PROTONIX INJ 40 MG VIAL IVP SCH ×2 (09:11→21:13)
[2021-12-08] MEDS: K-RIDER 10 MEQ/NS 100 ML 10 MEQ/100 ML BAG IV PRN (09:11)
[2021-12-08] MEDS: SYNTHROID 88 mcg TAB PO SCH (09:11)
[2021-12-08] MEDS ORDERED: NS IV NR ×2 (11:00)
[2021-12-08] MEDS ORDERED: POTASSIUM CHLORIDE IV NR ×2 (11:00)
[2021-12-08] MEDS: APRESOLINE INJ 20 MG VIAL IVP PRN ×2 (13:30→14:29)
--- NOTE | 2021-12-08 14:28 | CT ---
HISTORYABDOMINAL PAIN, S/P LAP MIRNA 12/06/2021TUDYCT abdomen pelvis without IV contrastCOMPARISONCT 11/23/2021TECHNIQUEMultiple axial images of the abdomen and pelvis were obtained from the lung bases to the pubic symphysis without the administration of IV contrast. Dose reduction techniques including Automated Exposure Control (AEC) and adjustment of mA and kV were utilized.FINDINGSThe visualized portions of the lung bases reveal branching slightly nodular densities and ground-glass densities in the right lower lobe. There is concern for possible right infrahilar nodule that is only partially included on image 1. These changes are new since prior exam. Atypical infectious changes are most likely etiology given the short-term change. Consider possible fungal infection or aspiration pneumonia. Mild atelectasis is seen at the left lung base.The liver and spleen display no abnormalities.Prior cholecystectomy. No biliary ductal dilation.No pancreatic abnormality is seen.The adrenal glands appear normal.No hydronephrosis or renal abnormality is seen. Ureters and bladder appear normal. Phleboliths are seen in the deep right side of the pelvis.Prominent dilation of the stomach with GI contrast, fluid, and food. There is prominent dilation of the proximal duodenum and possible wall thickening in the distal descending and transverse duodenum. This could be duodenitis but duodenal malignancy cannot be excluded. Small bowel is not distended. No evidence of jejunal or ileal bowel obstruction. Changes of jejunitis cannot be excluded. Mild retained fecal material in the colon is within normal limits. No evidence of diverticulitis or colitis.There is mild fluid in the right pericolic gutter. The appendix is near this fluid. Appendix measures 6.7 mm appendix measures 5 mm in diameter, though. The edema is probably from the duodenal changes rather than appendicitis.No abnormalities are seen of the reproductive organs.Abdominal aorta is normal in size.Likely small right upper quadrant lymph nodes are seen which may be reactive.Mild free fluid is seen in the right pericolic gutter and in the pelvis.No acute bony abnormality is seen.IMPRESSIONNew branching infiltrative densities in the right lower lobe of the lungs since 2 weeks ago. Appearance is suggestive of possible atypical pneumonia such as fungal infection or aspiration pneumonia.There is new prominent dilation of the stomach with fluid, air, food, and GI contrast. There is worsening prominence of the distal descending and transverse duodenum that is concerning for possible duodenitis or duodenal malignancy. This may cause gastric outlet obstruction.Minimal GI contrast is seen in the small bowel. Jejunitis changes are not excluded but no suggestion of jejunal or ileal obstruction is seen.Electronically signed by: Jono Kincaid (Dec 08, 2021 14:27:49)
[2021-12-08] MEDS ORDERED: ZESTRIL TAB 20 MG ONE (15:26)
[2021-12-08] MEDS: ZESTRIL TAB 20 MG PO SCH (15:31)
[2021-12-08] MEDS: CATAPRES TAB 0.1 MG PO PRN (15:32)
[2021-12-08] MEDS: REGLAN INJ 10 MG VIAL IVP SCH ×2 (17:03→22:24)
--- NOTE | 2021-12-08 17:13 | DR.PROGNOT ---
Hospital Progress Notes - Progress Note for Day of: Progress Note Date: 12/08/21 - Chief Complaint Chief Complaint: still having nausea and vomiting .. abdominal CT showed dilated stomach with large amount of fluid . - Past Medical Family Social History Past Med/Fam/Surg Hx: No changes since H&P Allergies: Allergies No Known Drug Allergies Allergy (Verified 11/23/21 10:01) - Review Of Systems ROS: No change since H&P - Vital Signs Vital Signs: Temperature 98.0 F Pulse Rate 113 Respiratory Rate 23 Blood Pressure [Left Arm] 147/78 Blood Pressure 197/110 O2 Sat by Pulse Oximetry 97 - Physical Exam Oriented: Normal Eyes: Normal Ear: Normal Nose: Normal Throat: Normal Cardiovascular: Normal : Normal GI:Auscultation: Decreased GI:Palpation: Other (soft, flat abdomen with RT side tenderness .. BS + but hypoactive .. ) GI: Tenderness: Epigastric Skin: Decreased Turgur Musculoskeletal: Normal Psychiatric: Normal Mood Description: Calm Speech Pattern: Clear, Appropriate - Laboratory and Diagnostics Result Diagrams: 12/08/21 04:30 12/08/21 04:30 Labs: 12/05/21 17:42 Blood Blood Culture - Preliminary 12/05/21 17:32 Blood Blood Culture - Preliminary Laboratory WBC 16.3 X10^3/uL (3.6-10.0) H 12/08/21 04:30 RBC 2.95 X10^6/uL (3.5-5.4) L 12/08/21 04:30 Hgb 9.4 g/dL (12.0-16.0) L 12/08/21 04:30 Hct 26.9 % (36.0-47.0) L 12/08/21 04:30 MCV 91.3 fL (80.0-100.0) 12/08/21 04:30 MCH 31.9 pg (27.0-34.0) 12/08/21 04:30 MCHC 35.0 g/dL (33.0-35.0) 12/08/21 04:30 RDW 13.6 % (11.6-16.5) 12/08/21 04:30 Plt Count 416 X10^3/uL (150.0-450.0) 12/08/21 04:30 Plt Count Comment Increased (ADEQUATE) A 12/06/21 10:22 MPV 7.0 fL (7.4-11.0) L 12/08/21 04:30 Neut % (Auto) 88.3 % (42.0-75.0) H 12/08/21 04:30 Lymph % (Auto) 5.6 % (21.0-51.0) L 12/08/21 04:30 [place] % (Auto) 5.4 % (0.0-13.0) 12/08/21 04:30 Eos % (Auto) 0.1 % (0.9-2.9) L 12/08/21 04:30 Baso % (Auto) 0.6 % (0.2-1.0) 12/08/21 04:30 Neut # (Auto) 14.4 x10^3/uL (2.2-4.8) H 12/08/21 04:30 Lymph # (Auto) 0.9 X10^3/uL (1.3-2.9) L 12/08/21 04:30 [place] # (Auto) 0.9 x10^3/uL (0.3-0.8) H 12/08/21 04:30 Eos # (Auto) 0.0 x10^3/uL (0.0-0.2) 12/08/21 04:30 Baso # (Auto) 0.1 X10^3/uL (0.0-0.1) 12/08/21 04:30 Absolute Nucleated RBC 0.0 /100WBC 12/08/21 04:30 Total Counted 100 12/06/21 10:22 Neutrophils % (Manual) 98 % (39-76) H 12/06/21 10:22 Band Neutrophils % 1 % (0-10) 12/06/21 10:22 Lymphocytes % (Manual) 1 % (13-43) L 12/06/21 10:22 Plt Morphology Comment Normal (NORMAL) 12/06/21 10: RBC Morphology Normal (NORMAL) 12/06/21 10:22 PT 16.4 SECONDS (11.8-14.3) 12/06/21 10:22 INR Target Range - 12/06/21 10: INR 1.39 (0.8-1.3) H 12/06/21 10:22 Sodium 136 mmol/L (136-145) 12/08/21 04:30 Corrected Sodium TNP 12/08/21 04:30 Potassium 3.0 mmol/L (3.5-5.1) L* 12/08/21 04:30 Chloride 102 mmol/L (98-107) 12/08/21 04:30 Carbon Dioxide 25.6 mmol/L (21-32) 12/08/21 04:30 BUN 7 mg/dL (7-18) 12/08/21 04:30 Creatinine 0.53 mg/dL (0.55-1.02) L 12/08/21 04:30 Est GFR (MDRD) Af Amer > 60 (>60) 12/08/21 04:30 Est GFR (MDRD) Non-Af > 60 (>60) 12/08/21 04:30 Glucose 101 mg/dL (65-99) H 12/08/21 04:30 POC Glucose (mg/dL) 121 mg/dL (65-99) H 12/07/21 01:07 Calcium 7.6 mg/dL (8.5-10.1) L 12/08/21 04:30 Corrected Calcium 8.6 mg/dL (8.5-10.1) 12/08/21 04:30 Magnesium 1.8 mg/dL (1.7-2.9) 12/08/21 04:30 Iron 16 ug/dL (50-175) L 12/08/21 14:21 TIBC 205 ug/dL (250-450) L 12/08/21 14:21 % Saturation 7.8 % (11.0-46.0) L 12/08/21 14:21 Ferritin 155 ng/mL (8-252) 12/08/21 14:21 Total Bilirubin 0.80 mg/dL (0.2-1.0) 12/08/21 04:30 AST 22 Units/L (15-37) 12/08/21 04:30 ALT 29 Units/L (12-78) 12/08/21 04:30 Alkaline Phosphatase 59 Units/L (46-116) 12/08/21 04:30 Total Protein 5.7 g/dL (6.4-8.2) L 12/08/21 04:30 Albumin 2.8 g/dL (3.4-5.0) L 12/08/21 04:30 Globulin 2.9 g/dL (2.5-4.5) 12/08/21 04:30 Albumin/Globulin Ratio 1.0 Ratio (1.1-2.1) L 12/08/21 04:30 Amylase 60 Units/L (25-115) 12/03/21 18:47 Lipase 173 Units/L (73-393) 12/03/21 18:47 TSH 3rd Generation 1.311 uIU/mL (0.358-3.74) 12/03/21 18:47 HCG, Qual Negative <10 mIU/mL 12/04/21 04:39 SARS CoV-2 RNA Rapid MACK Negative (NEGATIVE) 12/03/21 20:49 Tissue Pathology To follow 12/06/21 08:27 - Assessment and Plan 1: post op lap verona . gastroparesis or ileus . mesenteric hematoma of unknown etiology . pulmonary infiltrates. HTN. D/W Dr Cabello . to keep NGT , same ABT , Reglan , Protonix ... OOB and po care - Problem Patient Problems: Patient Problems Hypokalemia (Acute) E87.6 Abdominal pain (Acute) R10.9 Acute epigastric pain (Acute) R10.13 Anemia (Acute) D64.9 Hypertensive urgency (Acute) I16.0 Gastritis (Acute) K29.70
[2021-12-08] MEDS ORDERED: ATIVAN INJ 2 MG VIAL IVP ONE (17:37)
[2021-12-08] MEDS ORDERED: XYLOCAINE VISCOUS MT ONE (17:41)
--- NOTE | 2021-12-08 18:51 | RAD ---
EXAM: ABDOMEN X-RAY (or KUB)HISTORY: Nasogastric tube verification status post placement.TECHNIQUE: Supine viewCOMPARISON: None.FINDINGS:Nasogastric tube is noted with the distal tip within the proximal body of the stomach (approximately 3.7 cm distal to the gastroesophageal junction), and the proximal sidehole within the distal esophagus, approximately 2.9 cm above the gastroesophageal junction. Recommend further advancement into the stomach (as clinically desired).The bowel gas pattern is nonspecific and nonobstructive. There is no gross organomegaly, free intraperitoneal air, or suspicious calcifications seen. Surgical clips are seen in the right upper quadrant in keeping with prior cholecystectomy. The visualized bony structures are within normal limits.IMPRESSION:1. Nasogastric tube is noted with the distal tip within the proximal body of the stomach (approximately 3.7 cm distal to the gastroesophageal junction), and the proximal sidehole within the distal esophagus, approximately 2.9 cm above the gastroesophageal junction. Recommend further advancement into the stomach (as clinically desired).Electronically signed by: Funmi Laguerre (Dec 08, 2021 18:50:10)
[2021-12-09] MEDS: DEMEROL INJ IVP PRN ×6 (02:26→22:15)
[2021-12-09 04:56] LABS: BASOPHILS # (AUTO) 0.1 X10^3/uL (0.0-0.1); BASOPHILS % (AUTO) 0.5 % (0.2-1.0); EOSINOPHILS # (AUTO) 0.1 x10^3/uL (0.0-0.2); EOSINOPHILS % (AUTO) 0.5 % (0.9-2.9); HEMATOCRIT 28.3 % (36.0-47.0); HEMOGLOBIN 9.8 g/dL (12.0-16.0); LYMPHOCYTES # (AUTO) 0.9 X10^3/uL (1.3-2.9); LYMPHOCYTES % (AUTO) 6.7 % (21.0-51.0); MEAN CORPUSCULAR HEMOGLOBIN 31.7 pg (27.0-34.0); MEAN CORPUSCULAR HGB CONC 34.8 g/dL (33.0-35.0); MEAN CORPUSCULAR VOLUME 91.1 fL (80.0-100.0); MEAN PLATELET VOLUME 7.4 fL (7.4-11.0); MONOCYTES # (AUTO) 0.8 x10^3/uL (0.3-0.8); MONOCYTES % (AUTO) 5.9 % (0.0-13.0); NEUTROPHILS # (AUTO) 11.4 x10^3/uL (2.2-4.8); NEUTROPHILS % (AUTO) 86.4 % (42.0-75.0); RED BLOOD COUNT 3.11 X10^6/uL (3.5-5.4); RED CELL DISTRIBUTION WIDTH 13.3 % (11.6-16.5); WHITE BLOOD COUNT 13.2 X10^3/uL (3.6-10.0)
[2021-12-09 05:03] LABS: ALANINE AMINOTRANSFERASE 26 Units/L (12-78); ALBUMIN 2.8 g/dL (3.4-5.0); ALKALINE PHOSPHATASE 67 Units/L (46-116); ASPARTATE AMINO TRANSFERASE 18 Units/L (15-37); BLOOD UREA NITROGEN 6 mg/dL (7-18); CALCIUM 7.9 mg/dL (8.5-10.1); CHLORIDE 102 mmol/L (98-107); COR CA(FOR HYPOALB) 8.9 mg/dL (8.5-10.1); SODIUM 138 mmol/L (136-145); TOTAL PROTEIN 6.1 g/dL (6.4-8.2); eGFR NON BLACK RACES > 60 (>60)
[2021-12-09] MEDS: ZOSYN VIAL 3.375 GRAMS 3.375 G in NS 100 ML IV 100 ML IV SCH ×3 (05:39→22:25)
[2021-12-09] MEDS: REGLAN INJ 10 MG VIAL IVP SCH ×4 (05:40→23:45)
[2021-12-09] MEDS: APRESOLINE INJ 20 MG VIAL IVP PRN ×3 (05:40→20:50)
[2021-12-09] MEDS: D5 1/2 NS 1,000 ML 1,000 ML IV SCH ×3 (06:57→11:13)
[2021-12-09] MEDS: PROTONIX INJ 40 MG VIAL IVP SCH ×2 (09:41→22:05)
[2021-12-09] MEDS: SYNTHROID INJ 100 mcg VIAL IM SCH (09:41)
[2021-12-09] MEDS: ZESTRIL TAB 20 MG PO SCH (09:42)
[2021-12-09] MEDS: K-RIDER 10 MEQ/NS 100 ML 10 MEQ/100 ML BAG IV PRN ×7 (09:59→23:40)
--- NOTE | 2021-12-09 10:44 | RAD ---
HISTORYPOSSIBLE PNEUMONIA SEEN ON CT FROM 12/08 HTNSTUDYCHEST, 1 VIEWCOMPARISONChest x-ray dated December 05, [address] abdomen/pelvis dated December 08, 2021.FINDINGSInterval placement of a nasogastric tube whose tip is within the distal esophagus and side port within the midesophagus. The trachea is midline. The cardiac silhouette is unremarkable. Patchy right lower lobe airspace disease is better appreciated on comparison CT. Remaining lungs are clear. No obvious pleural effusion or pneumothorax. The bony thorax is unremarkable.IMPRESSIONOne. Patchy right lower lobe airspace disease that is better seen on comparison CT.Two. Nasogastric that lies within the esophagus as above. Recommend advancing and reimaging.Electronically signed by: ZACKARY MALDONADO (Dec 09, 2021 10:42:54)
[2021-12-09] MEDS: CATAPRES-TTS-2 TD SCH (11:13)
--- NOTE | 2021-12-09 11:55 | RAD ---
HISTORYNG tube placementSTUDYKUBCOMPARISONNone .br.br the stomach. The abdominal gas pattern is nonspecific.IMPRESSIONNasogastric tube tip and side port within the stomachElectronically signed by: LOY HARMON (Dec 09, 2021 11:53:54)
[2021-12-09] MEDS: ATIVAN INJ 2 MG VIAL IVP PRN ×2 (12:19→19:40)
--- NOTE | 2021-12-09 14:43 | DR.PROGNOT ---
Hospital Progress Notes - Progress Note for Day of: Progress Note Date: 12/09/21 - Chief Complaint Chief Complaint: havinh moderate amount of NGT drainage . nausea is controlled . having abdominal pain requiring IV Demerol .. mild hypokalemia . - Past Medical Family Social History Past Med/Fam/Surg Hx: No changes since H&P Allergies: Allergies No Known Drug Allergies Allergy (Verified 11/23/21 10:01) - Review Of Systems ROS: No change since H&P - Vital Signs Vital Signs: Temperature 98.1 F Pulse Rate 109 Respiratory Rate 22 Blood Pressure [Left Arm] 147/78 Blood Pressure 162/109 O2 Sat by Pulse Oximetry 93 - Physical Exam Oriented: Normal Eyes: Normal Ear: Normal Nose: Normal Throat: Normal Cardiovascular: Normal : Normal GI:Auscultation: Decreased GI:Palpation: Other (soft, flat abdomen with RT side tenderness .. BS very hypoactive / .. ) GI: Tenderness: Epigastric Skin: Decreased Turgur Musculoskeletal: Normal Psychiatric: Normal Mood Description: Calm Speech Pattern: Clear, Appropriate - Laboratory and Diagnostics Result Diagrams: 12/09/21 04:30 12/09/21 04:30 Labs: 12/05/21 17:42 Blood Blood Culture - Preliminary 12/05/21 17:32 Blood Blood Culture - Preliminary Laboratory WBC 13.2 X10^3/uL (3.6-10.0) H 12/09/21 04:30 RBC 3.11 X10^6/uL (3.5-5.4) L 12/09/21 04:30 Hgb 9.8 g/dL (12.0-16.0) L 12/09/21 04:30 Hct 28.3 % (36.0-47.0) L 12/09/21 04:30 MCV 91.1 fL (80.0-100.0) 12/09/21 04:30 MCH 31.7 pg (27.0-34.0) 12/09/21 04:30 MCHC 34.8 g/dL (33.0-35.0) 12/09/21 04:30 RDW 13.3 % (11.6-16.5) 12/09/21 04:30 Plt Count 433 X10^3/uL (150.0-450.0) 12/09/21 04:30 Plt Count Comment Increased (ADEQUATE) A 12/06/21 10:22 MPV 7.4 fL (7.4-11.0) 12/09/21 04:30 Neut % (Auto) 86.4 % (42.0-75.0) H 12/09/21 04:30 Lymph % (Auto) 6.7 % (21.0-51.0) L 12/09/21 04:30 [place] % (Auto) 5.9 % (0.0-13.0) 12/09/21 04:30 Eos % (Auto) 0.5 % (0.9-2.9) L 12/09/21 04:30 Baso % (Auto) 0.5 % (0.2-1.0) 12/09/21 04:30 Neut # (Auto) 11.4 x10^3/uL (2.2-4.8) H 12/09/21 04:30 Lymph # (Auto) 0.9 X10^3/uL (1.3-2.9) L 12/09/21 04:30 [place] # (Auto) 0.8 x10^3/uL (0.3-0.8) 12/09/21 04:30 Eos # (Auto) 0.1 x10^3/uL (0.0-0.2) 12/09/21 04:30 Baso # (Auto) 0.1 X10^3/uL (0.0-0.1) 12/09/21 04:30 Absolute Nucleated RBC 0.0 /100WBC 12/09/21 04:30 Total Counted 100 12/06/21 10:22 Neutrophils % (Manual) 98 % (39-76) H 12/06/21 10:22 Band Neutrophils % 1 % (0-10) 12/06/21 10:22 Lymphocytes % (Manual) 1 % (13-43) L 12/06/21 10:22 Plt Morphology Comment Normal (NORMAL) 12/06/21 10:22 RBC Morphology Normal (NORMAL) 12/06/21 10:22 PT 16.4 SECONDS (11.8-14.3) 12/06/21 10:22 INR Target Range - 12/06/21 10:22 INR 1.39 (0.8-1.3) H 12/06/21 10:22 Sodium 138 mmol/L (136-145) 12/09/21 04:30 Corrected Sodium TNP 12/09/21 04:30 Potassium 3.2 mmol/L (3.5-5.1) L 12/09/21 04:30 Chloride 102 mmol/L (98-107) 12/09/21 04:30 Carbon Dioxide 27.0 mmol/L (21-32) 12/09/21 04:30 BUN 6 mg/dL (7-18) L 12/09/21 04:30 Creatinine 0.50 mg/dL (0.55-1.02) L 12/09/21 04:30 Est GFR (MDRD) Af Amer > 60 (>60) 12/09/21 04:30 Est GFR (MDRD) Non-Af > 60 (>60) 12/09/21 04:30 Glucose 100 mg/dL (65-99) H 12/09/21 04:30 POC Glucose (mg/dL) 121 mg/dL (65-99) H 12/07/21 01:07 Calcium 7.9 mg/dL (8.5-10.1) L 12/09/21 04:30 Corrected Calcium 8.9 mg/dL (8.5-10.1) 12/09/21 04:30 Magnesium 1.8 mg/dL (1.7-2.9) 12/08/21 04:30 Iron 16 ug/dL (50-175) L 12/08/21 14:21 TIBC 205 ug/dL (250-450) L 12/08/21 14:21 % Saturation 7.8 % (11.0-46.0) L 12/08/21 14:21 Ferritin 155 ng/mL (8-252) 12/08/21 14:21 Total Bilirubin 0.90 mg/dL (0.2-1.0) 12/09/21 04:30 AST 18 Units/L (15-37) 12/09/21 04:30 ALT 26 Units/L (12-78) 12/09/21 04:30 Alkaline Phosphatase 67 Units/L (46-116) 12/09/21 04:30 Total Protein 6.1 g/dL (6.4-8.2) L 12/09/21 04:30 Albumin 2.8 g/dL (3.4-5.0) L 12/09/21 04:30 Globulin 3.3 g/dL (2.5-4.5) 12/09/21 04:30 Albumin/Globulin Ratio 0.8 Ratio (1.1-2.1) L 12/09/21 04:30 Amylase 60 Units/L (25-115) 12/03/21 18:47 Lipase 173 Units/L (73-393) 12/03/21 18:47 TSH 3rd Generation 1.311 uIU/mL (0.358-3.74) 12/03/21 18:47 HCG, Qual Negative <10 mIU/mL 12/04/21 04:39 SARS CoV-2 RNA Rapid MACK Negative (NEGATIVE) 12/03/21 20:49 Tissue Pathology To follow 12/06/21 08:27 - Assessment and Plan 1: post op lap verona . gastroparesis or ileus . mesenteric hematoma of unknown etiology . pulmonary infiltrates. HTN. to keep NGT , same ABT , Reglan , Protonix ... OOB and po care . add Lovenox . - Problem Patient Problems: Patient Problems Hypokalemia (Acute) E87.6 Abdominal pain (Acute) R10.9 Acute epigastric pain (Acute) R10.13 Anemia (Acute) D64.9 Hypertensive urgency (Acute) I16.0 Gastritis (Acute) K29.70
[2021-12-09] MEDS: LOVENOX INJ 40 MG SYR SC SCH (16:00)
--- NOTE | 2021-12-09 16:09 | RAD ---
EXAM: CHEST X-RAYHISTORY: Verification of PICC line position status post PICC placement.TECHNIQUE: AP chest x-ray dated December 09, 2021 at 3:54 PMCOMPARISON: CXR dated December 09, 2021 at 10:17 AM.FINDINGS:There is a left upper extremity PICC line with the distal tip in the expected location of the SVC (adequate position). Recommend careful clinical correlation to ensure venous blood return. Nasogastric tube with distal tip out of [id number] below the hemidiaphragms, presumably within the stomach. Clinical correlation is advised.The heart size and mediastinum are within normal limits. The lung griffin and costophrenic angles are clear. There is no acute parenchymal infiltrate, pleural effusion, or pneumothorax seen. The visualized bony structures are within normal limits.IMPRESSION:1. Left upper extremity PICC line with the distal tip in the expected location of the SVC (adequate position). Recommend careful clinical correlation to ensure venous blood return.2. No evidence for acute cardiopulmonary disease seen.Electronically signed by: Funmi Laguerre (Dec 09, 2021 16:07:49)
[2021-12-09] MEDS: LOPRESSOR INJ 5 MG AMP IVP PRN (16:18)
--- NOTE | 2021-12-09 16:19 | DR.UPDATE ---
H&P Update History and Physical Update: History and Physical reviewed and patient examined. Changes noted: NO Yes with the following:will place picc H&P Reviewed: Yes Patient was examined?: Yes Procedures (ALL) - Central Line Placement PCM.CLCO: written consent Time out performed: Yes Patient placed pm monitor/pulse ox: Yes prep: mask, gown, gloves, other Centrial line prep: chlorhexidine scrub, sterile drapes applied Local anesthsia used: lidocane 1% Ultrasound used for placement: Yes (L basilic id'd via u/s. cannulation visualized) Central line lumen ininserted: double (5.5 arrowpicc. 50cm length. 10cm exposed) Post procedure: good blood return, all ports aspirated, flushed,capped, sterile dressing applied Post procedure xray: tip oc catheter in good position (SVC per cxr.), no pne umothorax seen Patient tolerated procedure: Yes Complications: none
[2021-12-09] MEDS ORDERED: DULCOLAX SUPPOSITORY 10 MG RECTAL ONE (16:55)
--- NOTE | 2021-12-09 17:56 | PCM.PROG ---
Progress Note - Progress Note for Day of Date of Exam: 12/09/21 - Subjective Subjective: Patient is a 46 yo female who was referred for hematoma to liver,large amount of drainage from ng. Patient with complaints of nausea, abdominal pain, constipation. States she has been passing some flatus but no BM. KUB showed Nasogastric tube tip and side port. within the stomach. Hgb 9.8, Hct 28.3, Plt 433, BUN 6, Creatinine 0.5, T. Bili 0.9, AST 18, ALT 26, ALP 67 - Past Medical Family Social History Past Med/Fam/Surg Hx: No changes since H&P Allergies: Allergies No Known Drug Allergies Allergy (Verified 11/23/21 10:01) - Review of Systems ROS: No change since H&P - Vital Signs and I&O's Vital Signs: Temperature 98.4 F Pulse Rate 91 Respiratory Rate 23 Blood Pressure [Left Arm] 147/78 Blood Pressure 162/106 O2 Sat by Pulse Oximetry 96 Intake and Output: Intake & Output 12/06/21 12/07/21 12/08/21 12/09/21 23:59 23:59 23:59 23:59 Intake Total 6345 / 6345 2895 / 2895 3709 / 3709 1860 / 1860 Output Total 3802 / 3802 3525 / 3525 310 / 310 500 / 500 Balance 2543 / 2543 -630 / -630 3399 / 3399 1360 / 1360 - Physical Exam Oriented: Normal Eyes: Normal Ear: Normal Nose: Normal Throat: Normal Cardiovascular: Normal : Normal Auscultation: Bowel Sounds: Decreased Tenderness: RUQ, Epigastric Skin: Decreased Turgur Musculoskeletal: Normal Psychiatric: Normal Mood Description: Calm Speech Pattern: Clear, Appropriate - Laboratory and Diagnostics Result Diagrams: 12/09/21 04:30 12/09/21 04:30 Labs: 12/05/21 17:42 Blood Blood Culture - Preliminary 12/05/21 17:32 Blood Blood Culture - Preliminary Laboratory WBC 13.2 X10^3/uL (3.6-10.0) H 12/09/21 04:30 RBC 3.11 X10^6/uL (3.5-5.4) L 12/09/21 04:30 Hgb 9.8 g/dL (12.0-16.0) L 12/09/21 04:30 Hct 28.3 % (36.0-47.0) L 12/09/21 04:30 MCV 91.1 fL (80.0-100.0) 12/09/21 04:30 MCH 31.7 pg (27.0-34.0) 12/09/21 04:30 MCHC 34.8 g/dL (33.0-35.0) 12/09/21 04:30 RDW 13.3 % (11.6-16.5) 12/09/21 04:30 Plt Count 433 X10^3/uL (150.0-450.0) 12/09/21 04:30 Plt Count Comment Increased (ADEQUATE) A 12/06/21 10: MPV 7.4 fL (7.4-11.0) 12/09/21 04:30 Neut % (Auto) 86.4 % (42.0-75.0) H 12/09/21 04:30 Lymph % (Auto) 6.7 % (21.0-51.0) L 12/09/21 04:30 [place] % (Auto) 5.9 % (0.0-13.0) 12/09/21 04:30 Eos % (Auto) 0.5 % (0.9-2.9) L 12/09/21 04:30 Baso % (Auto) 0.5 % (0.2-1.0) 12/09/21 04:30 Neut # (Auto) 11.4 x10^3/uL (2.2-4.8) H 12/09/21 04:30 Lymph # (Auto) 0.9 X10^3/uL (1.3-2.9) L 12/09/21 04:30 [place] # (Auto) 0.8 x10^3/uL (0.3-0.8) 12/09/21 04:30 Eos # (Auto) 0.1 x10^3/uL (0.0-0.2) 12/09/21 04:30 Baso # (Auto) 0.1 X10^3/uL (0.0-0.1) 12/09/21 04:30 Absolute Nucleated RBC 0.0 /100WBC 12/09/21 04:30 Total Counted 100 12/06/21 10:22 Neutrophils % (Manual) 98 % (39-76) H 12/06/21 10:22 Band Neutrophils % 1 % (0-10) 12/06/21 10:22 Lymphocytes % (Manual) 1 % (13-43) L 12/06/21 10:22 Plt Morphology Comment Normal (NORMAL) 12/06/21 10:22 RBC Morphology Normal (NORMAL) 12/06/21 10:22 PT 16.4 SECONDS (11.8-14.3) 12/06/21 10:22 INR Target Range - 12/06/21 10:22 INR 1.39 (0.8-1.3) H 12/06/21 10:22 Sodium 138 mmol/L (136-145) 12/09/21 04:30 Corrected Sodium TNP 12/09/21 04:30 Potassium 3.2 mmol/L (3.5-5.1) L 12/09/21 04:30 Chloride 102 mmol/L (98-107) 12/09/21 04:30 Carbon Dioxide 27.0 mmol/L (21-32) 12/09/21 04:30 BUN 6 mg/dL (7-18) L 12/09/21 04:30 Creatinine 0.50 mg/dL (0.55-1.02) L 12/09/21 04:30 Est GFR (MDRD) Af Amer > 60 (>60) 12/09/21 04:30 Est GFR (MDRD) Non-Af > 60 (>60) 12/09/21 04:30 Glucose 100 mg/dL (65-99) H 12/09/21 04:30 POC Glucose (mg/dL) 121 mg/dL (65-99) H 12/07/21 01:07 Calcium 7.9 mg/dL (8.5-10.1) L 12/09/21 04:30 Corrected Calcium 8.9 mg/dL (8.5-10.1) 12/09/21 04:30 Magnesium 1.8 mg/dL (1.7-2.9) 12/08/21 04:30 Iron 16 ug/dL (50-175) L 12/08/21 14:21 TIBC 205 ug/dL (250-450) L 12/08/21 14:21 % Saturation 7.8 % (11.0-46.0) L 12/08/21 14:21 Ferritin 155 ng/mL (8-252) 12/08/21 14:21 Total Bilirubin 0.90 mg/dL (0.2-1.0) 12/09/21 04:30 AST 18 Units/L (15-37) 12/09/21 04:30 ALT 26 Units/L (12-78) 12/09/21 04:30 Alkaline Phosphatase 67 Units/L (46-116) 12/09/21 04:30 Total Protein 6.1 g/dL (6.4-8.2) L 12/09/21 04:30 Albumin 2.8 g/dL (3.4-5.0) L 12/09/21 04:30 Globulin 3.3 g/dL (2.5-4.5) 12/09/21 04:30 Albumin/Globulin Ratio 0.8 Ratio (1.1-2.1) L 12/09/21 04:30 Amylase 60 Units/L (25-115) 12/03/21 18:47 Lipase 173 Units/L (73-393) 12/03/21 18:47 TSH 3rd Generation 1.311 uIU/mL (0.358-3.74) 12/03/21 18:47 HCG, Qual Negative <10 mIU/mL 12/04/21 04:39 SARS CoV-2 RNA Rapid MACK Negative (NEGATIVE) 12/03/21 20:49 Tissue Pathology To follow 12/06/21 08:27 - Plan (1) Nausea & vomiting Status: Acute Plan: I will recommend to continue with IV Protonix. I will recommend to give Reglan 10 mg four times a day. A repeat CT of the abdomen with contrast will be ordered. Cont NG tube with intermittent suctioning. Serological workup for liver diseases will be ordered. The patient will need further workup once she is more stable from a postoperative standpoint for which I have recommended outpatient follow up. Dulcolax Supp (2) Abdominal pain Status: Acute (3) Anemia Status: Acute (4) Abnormal LFTs Status: Acute
[2021-12-09] MEDS ORDERED: PHENERGAN INJ 25 MG IM ONE (17:57)
[2021-12-09] MEDS: PHENERGAN INJ 25 MG IM PRN (18:11)
--- NOTE | 2021-12-09 23:00 | PCM.PROG ---
Progress Note - Progress Note for Day of Date of Exam: 12/05/21 - Subjective Subjective: Patient is a 46 yo female who was admitted as per HPI. Patient underwent lap verona today. DEEPAK drain intact. Patient tolerated procedure well. Patient has been started on clear liquids tolerating at this time. Follow per surery. No concerns at this time. - Past Medical Family Social History Past Med/Fam/Surg Hx: No changes since H&P Allergies: Allergies No Known Drug Allergies Allergy (Verified 11/23/21 10:01) - Review of Systems ROS: No change since H&P - Vital Signs and I&O's Vital Signs: Temperature 98.4 F Pulse Rate 102 Respiratory Rate 20 Blood Pressure [Left Arm] 147/78 Blood Pressure 172/102 O2 Sat by Pulse Oximetry 95 Intake and Output: Intake & Output 12/06/21 12/07/21 12/08/21 12/09/21 23:59 23:59 23:59 23:59 Intake Total 6345 / 6345 2895 / 2895 3709 / 3709 1860 / 1860 Output Total 3802 / 3802 3525 / 3525 310 / 310 500 / 500 Balance 2543 / 2543 -630 / -630 3399 / 3399 1360 / 1360 - Physical Exam Oriented: Normal, Time, Person, Place Eyes: Normal Ear: Normal Nose: Normal Throat: Normal Respiratory: Normal Cardiovascular: Normal : Normal Auscultation: Bowel Sounds: Decreased Palpation: Normal Tenderness: Diffuse (deepak drain), Moderate Skin: Decreased Turgur Musculoskeletal: Normal Psychiatric: Normal Mood Description: Calm Affect: Normal Speech Pattern: Clear, Appropriate - Laboratory and Diagnostics Result Diagrams: 12/09/21 04:30 12/09/21 19:41 Labs: 12/05/21 17:42 Blood Blood Culture - Preliminary 12/05/21 17:32 Blood Blood Culture - Preliminary Laboratory WBC 13.2 X10^3/uL (3.6-10.0) H 12/09/21 04:30 RBC 3.11 X10^6/uL (3.5-5.4) L 12/09/21 04:30 Hgb 9.8 g/dL (12.0-16.0) L 12/09/21 04:30 Hct 28.3 % (36.0-47.0) L 12/09/21 04:30 MCV 91.1 fL (80.0-100.0) 12/09/21 04:30 MCH 31.7 pg (27.0-34.0) 12/09/21 04:30 MCHC 34.8 g/dL (33.0-35.0) 12/09/21 04:30 RDW 13.3 % (11.6-16.5) 12/09/21 04:30 Plt Count 433 X10^3/uL (150.0-450.0) 12/09/21 04:30 Plt Count Comment Increased (ADEQUATE) A 12/06/21 10: MPV 7.4 fL (7.4-11.0) 12/09/21 04:30 Neut % (Auto) 86.4 % (42.0-75.0) H 12/09/21 04:30 Lymph % (Auto) 6.7 % (21.0-51.0) L 12/09/21 04:30 [place] % (Auto) 5.9 % (0.0-13.0) 12/09/21 04:30 Eos % (Auto) 0.5 % (0.9-2.9) L 12/09/21 04:30 Baso % (Auto) 0.5 % (0.2-1.0) 12/09/21 04:30 Neut # (Auto) 11.4 x10^3/uL (2.2-4.8) H 12/09/21 04:30 Lymph # (Auto) 0.9 X10^3/uL (1.3-2.9) L 12/09/21 04:30 [place] # (Auto) 0.8 x10^3/uL (0.3-0.8) 12/09/21 04:30 Eos # (Auto) 0.1 x10^3/uL (0.0-0.2) 12/09/21 04:30 Baso # (Auto) 0.1 X10^3/uL (0.0-0.1) 12/09/21 04:30 Absolute Nucleated RBC 0.0 /100WBC 12/09/21 04:30 Total Counted 100 12/06/21 10:22 Neutrophils % (Manual) 98 % (39-76) H 03/08/22 10:22 Band Neutrophils % 1 % (0-10) 12/06/21 10:22 Lymphocytes % (Manual) 1 % (13-43) L 12/06/21 10:22 Plt Morphology Comment Normal (NORMAL) 12/06/21 10:22 RBC Morphology Normal (NORMAL) 12/06/21 10:22 PT 16.4 SECONDS (11.8-14.3) 12/06/21 10:22 INR Target Range - 12/06/21 10: INR 1.39 (0.8-1.3) H 12/06/21 10:22 Sodium 138 mmol/L (136-145) 12/09/21 04:30 Corrected Sodium TNP 12/09/21 04:30 Potassium 3.3 mmol/L (3.5-5.1) L 12/09/21 19:41 Chloride 102 mmol/L (98-107) 12/09/21 04:30 Carbon Dioxide 27.0 mmol/L (21-32) 12/09/21 04:30 BUN 6 mg/dL (7-18) L 12/09/21 04:30 Creatinine 0.50 mg/dL (0.55-1.02) L 12/09/21 04:30 Est GFR (MDRD) Af Amer > 60 (>60) 12/09/21 04:30 Est GFR (MDRD) Non-Af > 60 (>60) 12/09/21 04:30 Glucose 100 mg/dL (65-99) H 12/09/21 04:30 POC Glucose (mg/dL) 121 mg/dL (65-99) H 12/07/21 01:07 Calcium 7.9 mg/dL (8.5-10.1) L 12/09/21 04:30 Corrected Calcium 8.9 mg/dL (8.5-10.1) 12/09/21 04:30 Magnesium 1.9 mg/dL (1.7-2.9) 12/09/21 19:41 Iron 16 ug/dL (50-175) L 12/08/21 14:21 TIBC 205 ug/dL (250-450) L 12/08/21 14:21 % Saturation 7.8 % (11.0-46.0) L 12/08/21 14:21 Ferritin 155 ng/mL (8-252) 12/08/21 14:21 Total Bilirubin 0.90 mg/dL (0.2-1.0) 12/09/21 04:30 AST 18 Units/L (15-37) 12/09/21 04:30 ALT 26 Units/L (12-78) 12/09/21 04:30 Alkaline Phosphatase 67 Units/L (46-116) 12/09/21 04:30 Total Protein 6.1 g/dL (6.4-8.2) L 12/09/21 04:30 Albumin 2.8 g/dL (3.4-5.0) L 12/09/21 04:30 Globulin 3.3 g/dL (2.5-4.5) 12/09/21 04:30 Albumin/Globulin Ratio 0.8 Ratio (1.1-2.1) L 12/09/21 04:30 Amylase 60 Units/L (25-115) 12/03/21 18:47 Lipase 173 Units/L (73-393) 12/03/21 18:47 TSH 3rd Generation 1.311 uIU/mL (0.358-3.74) 12/03/21 18:47 HCG, Qual Negative <10 mIU/mL 12/04/21 04:39 SARS CoV-2 RNA Rapid MACK Negative (NEGATIVE) 12/03/21 20:49 Tissue Pathology To follow 12/06/21 08:27 - Plan (1) Acute hypotension Status: Acute Plan: IV fluids (2) Hypokalemia Status: Acute (3) Abdominal pain Status: Acute (4) Anemia Status: Acute (5) Hypertensive urgency Status: Acute (6) Gastritis Status: Acute (7) Nausea & vomiting Status: Acute (8) Cholecystitis Status: Acute Plan: IV fluids, IV abx, Nausea and pain control. Patient unerwent EGD with Dr. Masters-see report. As per surgery team
--- NOTE | 2021-12-09 23:07 | PCM.PROG ---
Progress Note - Progress Note for Day of Date of Exam: 12/06/21 - Subjective Subjective: Patient is a 46 yo female who was admitted as per HPI. Patient underwent lap verona.Patient reports pain controlled and nausea controlled; will d/c once cleared by surgery. No concerns at this time. - Past Medical Family Social History Past Med/Fam/Surg Hx: No changes since H&P Allergies: Allergies No Known Drug Allergies Allergy (Verified 11/23/21 10:01) - Review of Systems ROS: No change since H&P - Vital Signs and I&O's Vital Signs: Temperature 98.7 F Pulse Rate 115 Respiratory Rate 20 Blood Pressure [Left Arm] 147/78 Blood Pressure 146/94 O2 Sat by Pulse Oximetry 94 Intake and Output: Intake & Output 12/06/21 12/07/21 12/08/21 12/09/21 23:59 23:59 23:59 23:59 Intake Total 6345 / 6345 2895 / 2895 3709 / 3709 1860 / 1860 Output Total 3802 / 3802 3525 / 3525 310 / 310 500 / 500 Balance 2543 / 2543 -630 / -630 3399 / 3399 1360 / 1360 - Physical Exam Oriented: Normal, Time, Person, Place Eyes: Normal Ear: Normal Nose: Normal Throat: Normal Respiratory: Normal Cardiovascular: Normal : Normal Auscultation: Bowel Sounds: Decreased Tenderness: Diffuse (deepak drain), Moderate Skin: Decreased Turgur Musculoskeletal: Normal Psychiatric: Normal Mood Description: Calm Affect: Normal Speech Pattern: Clear, Appropriate - Laboratory and Diagnostics Result Diagrams: 12/09/21 04:30 12/09/21 19:41 Labs: 12/05/21 17:42 Blood Blood Culture - Preliminary 12/05/21 17:32 Blood Blood Culture - Preliminary Laboratory WBC 13.2 X10^3/uL (3.6-10.0) H 12/09/21 04:30 RBC 3.11 X10^6/uL (3.5-5.4) L 12/09/21 04:30 Hgb 9.8 g/dL (12.0-16.0) L 12/09/21 04:30 Hct 28.3 % (36.0-47.0) L 12/09/21 04:30 MCV 91.1 fL (80.0-100.0) 12/09/21 04:30 MCH 31.7 pg (27.0-34.0) 12/09/21 04:30 MCHC 34.8 g/dL (33.0-35.0) 12/09/21 04:30 RDW 13.3 % (11.6-16.5) 12/09/21 04:30 Plt Count 433 X10^3/uL (150.0-450.0) 12/09/21 04:30 Plt Count Comment Increased (ADEQUATE) A 12/06/21 10: MPV 7.4 fL (7.4-11.0) 12/09/21 04:30 Neut % (Auto) 86.4 % (42.0-75.0) H 12/09/21 04:30 Lymph % (Auto) 6.7 % (21.0-51.0) L 12/09/21 04:30 [place] % (Auto) 5.9 % (0.0-13.0) 12/09/21 04:30 Eos % (Auto) 0.5 % (0.9-2.9) L 12/09/21 04:30 Baso % (Auto) 0.5 % (0.2-1.0) 12/09/21 04:30 Neut # (Auto) 11.4 x10^3/uL (2.2-4.8) H 12/09/21 04:30 Lymph # (Auto) 0.9 X10^3/uL (1.3-2.9) L 12/09/21 04:30 [place] # (Auto) 0.8 x10^3/uL (0.3-0.8) 12/09/21 04:30 Eos # (Auto) 0.1 x10^3/uL (0.0-0.2) 12/09/21 04:30 Baso # (Auto) 0.1 X10^3/uL (0.0-0.1) 12/09/21 04:30 Absolute Nucleated RBC 0.0 /100WBC 12/09/21 04:30 Total Counted 100 12/06/21 10:22 Neutrophils % (Manual) 98 % (39-76) H 12/06/21 10:22 Band Neutrophils % 1 % (0-10) 12/06/21 10:22 Lymphocytes % (Manual) 1 % (13-43) L 12/06/21 10:22 Plt Morphology Comment Normal (NORMAL) 12/06/21 10:22 RBC Morphology Normal (NORMAL) 12/06/21 10:22 PT 16.4 SECONDS (11.8-14.3) 12/06/21 10:22 INR Target Range - 12/06/21 10: INR 1.39 (0.8-1.3) H 12/06/21 10:22 Sodium 138 mmol/L (136-145) 12/09/21 04:30 Corrected Sodium TNP 12/09/21 04:30 Potassium 3.3 mmol/L (3.5-5.1) L 12/09/21 19:41 Chloride 102 mmol/L (98-107) 12/09/21 04:30 Carbon Dioxide 27.0 mmol/L (21-32) 12/09/21 04:30 BUN 6 mg/dL (7-18) L 12/09/21 04:30 Creatinine 0.50 mg/dL (0.55-1.02) L 12/09/21 04:30 Est GFR (MDRD) Af Amer > 60 (>60) 12/09/21 04:30 Est GFR (MDRD) Non-Af > 60 (>60) 12/09/21 04:30 Glucose 100 mg/dL (65-99) H 12/09/21 04:30 POC Glucose (mg/dL) 121 mg/dL (65-99) H 12/07/21 01:07 Calcium 7.9 mg/dL (8.5-10.1) L 12/09/21 04:30 Corrected Calcium 8.9 mg/dL (8.5-10.1) 12/09/21 04:30 Magnesium 1.9 mg/dL (1.7-2.9) 12/09/21 19:41 Iron 16 ug/dL (50-175) L 12/08/21 14:21 TIBC 205 ug/dL (250-450) L 12/08/21 14:21 % Saturation 7.8 % (11.0-46.0) L 12/08/21 14:21 Ferritin 155 ng/mL (8-252) 12/08/21 14:21 Total Bilirubin 0.90 mg/dL (0.2-1.0) 12/09/21 04:30 AST 18 Units/L (15-37) 12/09/21 04:30 ALT 26 Units/L (12-78) 12/09/21 04:30 Alkaline Phosphatase 67 Units/L (46-116) 12/09/21 04:30 Total Protein 6.1 g/dL (6.4-8.2) L 12/09/21 04:30 Albumin 2.8 g/dL (3.4-5.0) L 12/09/21 04:30 Globulin 3.3 g/dL (2.5-4.5) 12/09/21 04:30 Albumin/Globulin Ratio 0.8 Ratio (1.1-2.1) L 12/09/21 04:30 Amylase 60 Units/L (25-115) 12/03/21 18:47 Lipase 173 Units/L (73-393) 12/03/21 18:47 TSH 3rd Generation 1.311 uIU/mL (0.358-3.74) 12/03/21 18:47 HCG, Qual Negative <10 mIU/mL 12/04/21 04:39 SARS CoV-2 RNA Rapid MACK Negative (NEGATIVE) 12/03/21 20:49 Tissue Pathology To follow 12/06/21 08:27 - Plan (1) Acute hypotension Status: Acute Plan: IV fluids (2) Hypokalemia Status: Acute Plan: replace (3) Abdominal pain Status: Acute (4) Anemia Status: Acute (5) Hypertensive urgency Status: Acute (6) Gastritis Status: Acute (7) Nausea & vomiting Status: Acute (8) Cholecystitis Status: Acute Plan: IV fluids, IV abx, Nausea and pain control. Patient unerwent EGD with Dr. Masters-see report. As per surgery team. Patient ipoved, once cleared by surgery will dc home.
--- NOTE | 2021-12-09 23:11 | PCM.PROG ---
Progress Note - Progress Note for Day of Date of Exam: 12/07/21 - Subjective Subjective: Patient is a 46 yo female who was admitted as per HPI. Patient underwent lap verona.Patient began having vomiting yesterday afternoon/last niht. Surgery ordered NGT LIWS; will follow per surgery. Patient reports nausea and continued pain. - Past Medical Family Social History Past Med/Fam/Surg Hx: No changes since H&P Allergies: Allergies No Known Drug Allergies Allergy (Verified 11/23/21 10:01) - Review of Systems ROS: No change since H&P - Vital Signs and I&O's Vital Signs: Temperature 98.7 F Pulse Rate 115 Respiratory Rate 20 Blood Pressure [Left Arm] 147/78 Blood Pressure 146/94 O2 Sat by Pulse Oximetry 94 Intake and Output: Intake & Output 12/06/21 12/07/21 12/08/21 12/09/21 23:59 23:59 23:59 23:59 Intake Total 6345 / 6345 2895 / 2895 3709 / 3709 1860 / 1860 Output Total 3802 / 3802 3525 / 3525 310 / 310 500 / 500 Balance 2543 / 2543 -630 / -630 3399 / 3399 1360 / 1360 - Physical Exam Oriented: Normal, Time, Person, Place Eyes: Normal Ear: Normal Nose: Normal Throat: Normal Respiratory: Normal Cardiovascular: Normal : Normal Auscultation: Bowel Sounds: Decreased Tenderness: Diffuse (deepak drain), Moderate Skin: Decreased Turgur Musculoskeletal: Normal Psychiatric: Normal Mood Description: Calm Affect: Normal Speech Pattern: Clear, Appropriate - Laboratory and Diagnostics Result Diagrams: 12/09/21 04:30 12/09/21 19:41 Labs: 12/05/21 17:42 Blood Blood Culture - Preliminary 12/05/21 17:32 Blood Blood Culture - Preliminary Laboratory WBC 13.2 X10^3/uL (3.6-10.0) H 12/09/21 04:30 RBC 3.11 X10^6/uL (3.5-5.4) L 12/09/21 04:30 Hgb 9.8 g/dL (12.0-16.0) L 12/09/21 04:30 Hct 28.3 % (36.0-47.0) L 12/09/21 04:30 MCV 91.1 fL (80.0-100.0) 12/09/21 04:30 MCH 31.7 pg (27.0-34.0) 12/09/21 04:30 MCHC 34.8 g/dL (33.0-35.0) 12/09/21 04:30 RDW 13.3 % (11.6-16.5) 12/09/21 04:30 Plt Count 433 X10^3/uL (150.0-450.0) 12/09/21 04:30 Plt Count Comment Increased (ADEQUATE) A 12/06/21 10:22 MPV 7.4 fL (7.4-11.0) 12/09/21 04:30 Neut % (Auto) 86.4 % (42.0-75.0) H 12/09/21 04:30 Lymph % (Auto) 6.7 % (21.0-51.0) L 12/09/21 04:30 [place] % (Auto) 5.9 % (0.0-13.0) 12/09/21 04:30 Eos % (Auto) 0.5 % (0.9-2.9) L 12/09/21 04:30 Baso % (Auto) 0.5 % (0.2-1.0) 12/09/21 04:30 Neut # (Auto) 11.4 x10^3/uL (2.2-4.8) H 12/09/21 04:30 Lymph # (Auto) 0.9 X10^3/uL (1.3-2.9) L 12/09/21 04:30 [place] # (Auto) 0.8 x10^3/uL (0.3-0.8) 12/09/21 04:30 Eos # (Auto) 0.1 x10^3/uL (0.0-0.2) 12/09/21 04:30 Baso # (Auto) 0.1 X10^3/uL (0.0-0.1) 12/09/21 04:30 Absolute Nucleated RBC 0.0 /100WBC 12/09/21 04:30 Total Counted 100 12/06/21 10:22 Neutrophils % (Manual) 98 % (39-76) H 12/06/21 10:22 Band Neutrophils % 1 % (0-10) 12/06/21 10:22 Lymphocytes % (Manual) 1 % (13-43) L 12/06/21 10:22 Plt Morphology Comment Normal (NORMAL) 12/06/21 10:22 RBC Morphology Normal (NORMAL) 12/06/21 10:22 PT 16.4 SECONDS (11.8-14.3) 12/06/21 10:22 INR Target Range - 12/06/21 10:22 INR 1.39 (0.8-1.3) H 12/06/21 10:22 Sodium 138 mmol/L (136-145) 12/09/21 04:30 Corrected Sodium TNP 12/09/21 04:30 Potassium 3.3 mmol/L (3.5-5.1) L 12/09/21 19:41 Chloride 102 mmol/L (98-107) 12/09/21 04:30 Carbon Dioxide 27.0 mmol/L (21-32) 12/09/21 04:30 BUN 6 mg/dL (7-18) L 12/09/21 04:30 Creatinine 0.50 mg/dL (0.55-1.02) L 12/09/21 04:30 Est GFR (MDRD) Af Amer > 60 (>60) 12/09/21 04:30 Est GFR (MDRD) Non-Af > 60 (>60) 12/09/21 04:30 Glucose 100 mg/dL (65-99) H 12/09/21 04:30 POC Glucose (mg/dL) 121 mg/dL (65-99) H 12/07/21 01:07 Calcium 7.9 mg/dL (8.5-10.1) L 12/09/21 04:30 Corrected Calcium 8.9 mg/dL (8.5-10.1) 12/09/21 04:30 Magnesium 1.9 mg/dL (1.7-2.9) 12/09/21 19:41 Iron 16 ug/dL (50-175) L 12/08/21 14:21 TIBC 205 ug/dL (250-450) L 12/08/21 14:21 % Saturation 7.8 % (11.0-46.0) L 12/08/21 14:21 Ferritin 155 ng/mL (8-252) 12/08/21 14:21 Total Bilirubin 0.90 mg/dL (0.2-1.0) 12/09/21 04:30 AST 18 Units/L (15-37) 12/09/21 04:30 ALT 26 Units/L (12-78) 12/09/21 04:30 Alkaline Phosphatase 67 Units/L (46-116) 12/09/21 04:30 Total Protein 6.1 g/dL (6.4-8.2) L 12/09/21 04:30 Albumin 2.8 g/dL (3.4-5.0) L 12/09/21 04:30 Globulin 3.3 g/dL (2.5-4.5) 12/09/21 04:30 Albumin/Globulin Ratio 0.8 Ratio (1.1-2.1) L 12/09/21 04:30 Amylase 60 Units/L (25-115) 12/03/21 18:47 Lipase 173 Units/L (73-393) 12/03/21 18:47 TSH 3rd Generation 1.311 uIU/mL (0.358-3.74) 12/03/21 18:47 HCG, Qual Negative <10 mIU/mL 12/04/21 04:39 SARS CoV-2 RNA Rapid MACK Negative (NEGATIVE) 12/03/21 20:49 Tissue Pathology To follow 12/06/21 08:27 - Plan (1) Acute hypotension Status: Acute Plan: IV fluids (2) Hypokalemia Status: Acute Plan: replace (3) Abdominal pain Status: Acute (4) Anemia Status: Acute (5) Hypertensive urgency Status: Acute (6) Gastritis Status: Acute (7) Nausea & vomiting Status: Acute (8) Cholecystitis Status: Acute Plan: IV fluids, IV abx, Nausea and pain control. Patient unerwent EGD with Dr. Masters-see report. As per surgery team. NGT LIWS-as per surgery
--- NOTE | 2021-12-09 23:14 | PCM.PROG ---
Progress Note - Progress Note for Day of Date of Exam: 12/08/21 - Subjective Subjective: Patient is a 46 yo female who was admitted as per HPI. Patient underwent lap verona. Patient has had imrpvement in N/V; surgery ordered to remove NGT and trial clear liuids; will follow per surgery. - Past Medical Family Social History Past Med/Fam/Surg Hx: No changes since H&P Allergies: Allergies No Known Drug Allergies Allergy (Verified 11/23/21 10:01) - Review of Systems ROS: No change since H&P - Vital Signs and I&O's Vital Signs: Temperature 98.7 F Pulse Rate 115 Respiratory Rate 20 Blood Pressure [Left Arm] 147/78 Blood Pressure 146/94 O2 Sat by Pulse Oximetry 94 Intake and Output: Intake & Output 12/06/21 12/07/21 12/08/21 12/09/21 23:59 23:59 23:59 23:59 Intake Total 6345 / 6345 2895 / 2895 3709 / 3709 1860 / 1860 Output Total 3802 / 3802 3525 / 3525 310 / 310 500 / 500 Balance 2543 / 2543 -630 / -630 3399 / 3399 1360 / 1360 - Physical Exam Oriented: Normal, Time, Person, Place Eyes: Normal Ear: Normal Nose: Normal Throat: Normal Respiratory: Normal Cardiovascular: Normal : Normal Auscultation: Bowel Sounds: Decreased Tenderness: Diffuse (deepak drain), Moderate Skin: Decreased Turgur Musculoskeletal: Normal Psychiatric: Normal Mood Description: Calm Affect: Normal Speech Pattern: Clear, Appropriate - Laboratory and Diagnostics Result Diagrams: 12/09/21 04:30 12/09/21 19:41 Labs: 12/05/21 17:42 Blood Blood Culture - Preliminary 12/05/21 17:32 Blood Blood Culture - Preliminary Laboratory WBC 13.2 X10^3/uL (3.6-10.0) H 12/09/21 04:30 RBC 3.11 X10^6/uL (3.5-5.4) L 12/09/21 04:30 Hgb 9.8 g/dL (12.0-16.0) L 12/09/21 04:30 Hct 28.3 % (36.0-47.0) L 12/09/21 04:30 MCV 91.1 fL (80.0-100.0) 12/09/21 04:30 MCH 31.7 pg (27.0-34.0) 12/09/21 04:30 MCHC 34.8 g/dL (33.0-35.0) 12/09/21 04:30 RDW 13.3 % (11.6-16.5) 12/09/21 04:30 Plt Count 433 X10^3/uL (150.0-450.0) 12/09/21 04:30 Plt Count Comment Increased (ADEQUATE) A 12/06/21 10:22 MPV 7.4 fL (7.4-11.0) 12/09/21 04:30 Neut % (Auto) 86.4 % (42.0-75.0) H 12/09/21 04:30 Lymph % (Auto) 6.7 % (21.0-51.0) L 12/09/21 04:30 [place] % (Auto) 5.9 % (0.0-13.0) 12/09/21 04:30 Eos % (Auto) 0.5 % (0.9-2.9) L 12/09/21 04:30 Baso % (Auto) 0.5 % (0.2-1.0) 12/09/21 04:30 Neut # (Auto) 11.4 x10^3/uL (2.2-4.8) H 12/09/21 04:30 Lymph # (Auto) 0.9 X10^3/uL (1.3-2.9) L 12/09/21 04:30 [place] # (Auto) 0.8 x10^3/uL (0.3-0.8) 12/09/21 04:30 Eos # (Auto) 0.1 x10^3/uL (0.0-0.2) 12/09/21 04:30 Baso # (Auto) 0.1 X10^3/uL (0.0-0.1) 12/09/21 04:30 Absolute Nucleated RBC 0.0 /100WBC 12/09/21 04:30 Total Counted 100 12/06/21 10:22 Neutrophils % (Manual) 98 % (39-76) H 12/06/21 10:22 Band Neutrophils % 1 % (0-10) 12/06/21 10:22 Lymphocytes % (Manual) 1 % (13-43) L 12/06/21 10:22 Plt Morphology Comment Normal (NORMAL) 12/06/21 10:22 RBC Morphology Normal (NORMAL) 12/06/21 10:22 PT 16.4 SECONDS (11.8-14.3) 12/06/21 10:22 INR Target Range - 12/06/21 10: INR 1.39 (0.8-1.3) H 12/06/21 10:22 Sodium 138 mmol/L (136-145) 12/09/21 04:30 Corrected Sodium TNP 12/09/21 04:30 Potassium 3.3 mmol/L (3.5-5.1) L 12/09/21 19:41 Chloride 102 mmol/L (98-107) 12/09/21 04:30 Carbon Dioxide 27.0 mmol/L (21-32) 12/09/21 04:30 BUN 6 mg/dL (7-18) L 12/09/21 04:30 Creatinine 0.50 mg/dL (0.55-1.02) L 12/09/21 04:30 Est GFR (MDRD) Af Amer > 60 (>60) 12/09/21 04:30 Est GFR (MDRD) Non-Af > 60 (>60) 12/09/21 04:30 Glucose 100 mg/dL (65-99) H 12/09/21 04:30 POC Glucose (mg/dL) 121 mg/dL (65-99) H 12/07/21 01:07 Calcium 7.9 mg/dL (8.5-10.1) L 12/09/21 04:30 Corrected Calcium 8.9 mg/dL (8.5-10.1) 12/09/21 04:30 Magnesium 1.9 mg/dL (1.7-2.9) 12/09/21 19:41 Iron 16 ug/dL (50-175) L 12/08/21 14:21 TIBC 205 ug/dL (250-450) L 12/08/21 14:21 % Saturation 7.8 % (11.0-46.0) L 12/08/21 14:21 Ferritin 155 ng/mL (8-252) 12/08/21 14:21 Total Bilirubin 0.90 mg/dL (0.2-1.0) 12/09/21 04:30 AST 18 Units/L (15-37) 12/09/21 04:30 ALT 26 Units/L (12-78) 12/09/21 04:30 Alkaline Phosphatase 67 Units/L (46-116) 12/09/21 04:30 Total Protein 6.1 g/dL (6.4-8.2) L 12/09/21 04:30 Albumin 2.8 g/dL (3.4-5.0) L 12/09/21 04:30 Globulin 3.3 g/dL (2.5-4.5) 12/09/21 04:30 Albumin/Globulin Ratio 0.8 Ratio (1.1-2.1) L 12/09/21 04:30 Amylase 60 Units/L (25-115) 12/03/21 18:47 Lipase 173 Units/L (73-393) 12/03/21 18:47 TSH 3rd Generation 1.311 uIU/mL (0.358-3.74) 12/03/21 18:47 HCG, Qual Negative <10 mIU/mL 12/04/21 04:39 SARS CoV-2 RNA Rapid MACK Negative (NEGATIVE) 12/03/21 20:49 Tissue Pathology To follow 12/06/21 08:27 - Plan (1) Acute hypotension Status: Acute Plan: IV fluids (2) Hypokalemia Status: Acute Plan: replace (3) Abdominal pain Status: Acute (4) Anemia Status: Acute (5) Hypertensive urgency Status: Acute (6) Gastritis Status: Acute (7) Nausea & vomiting Status: Acute Plan: I will recommend to continue with IV Protonix. I will recommend to give Reglan 10 mg four times a day. A repeat CT of the abdomen with contrast will be ordered. Cont NG tube with intermittent suctioning. Serological workup for liver diseases will be ordered. The patient will need further workup once she is more stable from a postoperative standpoint for which I have recommended outpatient follow up. Dulcolax Supp (8) Cholecystitis Status: Acute Plan: IV fluids, IV abx, Nausea and pain control. Patient unerwent EGD with Dr. Masters-see report. As per surgery team. NGT LIWS-as per surgery
[2021-12-09] MEDS: MAGNESIUM SULFATE 1 GRAM/100 mL PREMIX 1 G/100 ML BAG IV PRN (23:15)
--- NOTE | 2021-12-09 23:17 | PCM.PROG ---
Progress Note - Subjective Subjective: Patient is a 46 yo female who was admitted as per HPI. Patient underwent lap verona. Patient required re-insertion of NGT yesterday afternon/ last night. 500cc return. Patient revealed pneumonia on repeat ct scan; patietn on appropriate abx without wheezing or fever. will follow per surgery. - Past Medical Family Social History Past Med/Fam/Surg Hx: No changes since H&P Allergies: Allergies No Known Drug Allergies Allergy (Verified 11/23/21 10:01) - Review of Systems ROS: No change since H&P - Vital Signs and I&O's Vital Signs: Temperature 98.7 F Pulse Rate 115 Respiratory Rate 20 Blood Pressure [Left Arm] 147/78 Blood Pressure 146/94 O2 Sat by Pulse Oximetry 94 Intake and Output: Intake & Output 12/06/21 12/07/21 12/08/21 12/09/21 23:59 23:59 23:59 23:59 Intake Total 6345 / 6345 2895 / 2895 3709 / 3709 1860 / 1860 Output Total 3802 / 3802 3525 / 3525 310 / 310 500 / 500 Balance 2543 / 2543 -630 / -630 3399 / 3399 1360 / 1360 - Physical Exam Oriented: Normal, Time, Person, Place Eyes: Normal Ear: Normal Nose: Normal Throat: Normal Respiratory: Normal Cardiovascular: Normal : Normal Auscultation: Bowel Sounds: Decreased Tenderness: Diffuse (deepak drain), Moderate Skin: Decreased Turgur Musculoskeletal: Normal Psychiatric: Normal Mood Description: Calm Affect: Normal Speech Pattern: Clear, Appropriate - Laboratory and Diagnostics Result Diagrams: 12/09/21 04:30 12/09/21 19:41 Labs: 12/05/21 17:42 Blood Blood Culture - Preliminary 12/05/21 17:32 Blood Blood Culture - Preliminary Laboratory WBC 13.2 X10^3/uL (3.6-10.0) H 12/09/21 04:30 RBC 3.11 X10^6/uL (3.5-5.4) L 12/09/21 04:30 Hgb 9.8 g/dL (12.0-16.0) L 12/09/21 04:30 Hct 28.3 % (36.0-47.0) L 12/09/21 04:30 MCV 91.1 fL (80.0-100.0) 12/09/21 04:30 MCH 31.7 pg (27.0-34.0) 12/09/21 04:30 MCHC 34.8 g/dL (33.0-35.0) 12/09/21 04:30 RDW 13.3 % (11.6-16.5) 12/09/21 04:30 Plt Count 433 X10^3/uL (150.0-450.0) 12/09/21 04:30 Plt Count Comment Increased (ADEQUATE) A 12/06/21 10:22 MPV 7.4 fL (7.4-11.0) 12/09/21 04:30 Neut % (Auto) 86.4 % (42.0-75.0) H 12/09/21 04:30 Lymph % (Auto) 6.7 % (21.0-51.0) L 12/09/21 04:30 [place] % (Auto) 5.9 % (0.0-13.0) 12/09/21 04:30 Eos % (Auto) 0.5 % (0.9-2.9) L 12/09/21 04:30 Baso % (Auto) 0.5 % (0.2-1.0) 12/09/21 04:30 Neut # (Auto) 11.4 x10^3/uL (2.2-4.8) H 12/09/21 04:30 Lymph # (Auto) 0.9 X10^3/uL (1.3-2.9) L 12/09/21 04:30 [place] # (Auto) 0.8 x10^3/uL (0.3-0.8) 12/09/21 04:30 Eos # (Auto) 0.1 x10^3/uL (0.0-0.2) 12/09/21 04:30 Baso # (Auto) 0.1 X10^3/uL (0.0-0.1) 12/09/21 04:30 Absolute Nucleated RBC 0.0 /100WBC 12/09/21 04:30 Total Counted 100 12/06/21 10:22 Neutrophils % (Manual) 98 % (39-76) H 12/06/21 10:22 Band Neutrophils % 1 % (0-10) 12/06/21 10:22 Lymphocytes % (Manual) 1 % (13-43) L 12/06/21 10:22 Plt Morphology Comment Normal (NORMAL) 12/06/21 10:22 RBC Morphology Normal (NORMAL) 12/06/21 10:22 PT 16.4 SECONDS (11.8-14.3) 12/06/21 10:22 INR Target Range - 12/06/21 10:22 INR 1.39 (0.8-1.3) H 12/06/21 10:22 Sodium 138 mmol/L (136-145) 12/09/21 04:30 Corrected Sodium TNP 12/09/21 04:30 Potassium 3.3 mmol/L (3.5-5.1) L 12/09/21 19:41 Chloride 102 mmol/L (98-107) 12/09/21 04:30 Carbon Dioxide 27.0 mmol/L (21-32) 12/09/21 04:30 BUN 6 mg/dL (7-18) L 12/09/21 04:30 Creatinine 0.50 mg/dL (0.55-1.02) L 12/09/21 04:30 Est GFR (MDRD) Af Amer > 60 (>60) 12/09/21 04:30 Est GFR (MDRD) Non-Af > 60 (>60) 12/09/21 04:30 Glucose 100 mg/dL (65-99) H 12/09/21 04:30 POC Glucose (mg/dL) 121 mg/dL (65-99) H 12/07/21 01:07 Calcium 7.9 mg/dL (8.5-10.1) L 12/09/21 04:30 Corrected Calcium 8.9 mg/dL (8.5-10.1) 12/09/21 04:30 Magnesium 1.9 mg/dL (1.7-2.9) 12/09/21 19:41 Iron 16 ug/dL (50-175) L 12/08/21 14:21 TIBC 205 ug/dL (250-450) L 12/08/21 14:21 % Saturation 7.8 % (11.0-46.0) L 12/08/21 14:21 Ferritin 155 ng/mL (8-252) 12/08/21 14:21 Total Bilirubin 0.90 mg/dL (0.2-1.0) 12/09/21 04:30 AST 18 Units/L (15-37) 12/09/21 04:30 ALT 26 Units/L (12-78) 12/09/21 04:30 Alkaline Phosphatase 67 Units/L (46-116) 12/09/21 04:30 Total Protein 6.1 g/dL (6.4-8.2) L 12/09/21 04:30 Albumin 2.8 g/dL (3.4-5.0) L 12/09/21 04:30 Globulin 3.3 g/dL (2.5-4.5) 12/09/21 04:30 Albumin/Globulin Ratio 0.8 Ratio (1.1-2.1) L 12/09/21 04:30 Amylase 60 Units/L (25-115) 12/03/21 18:47 Lipase 173 Units/L (73-393) 12/03/21 18:47 TSH 3rd Generation 1.311 uIU/mL (0.358-3.74) 12/03/21 18:47 HCG, Qual Negative <10 mIU/mL 12/04/21 04:39 SARS CoV-2 RNA Rapid MACK Negative (NEGATIVE) 12/03/21 20:49 Tissue Pathology To follow 12/06/21 08:27 - Plan (1) Acute hypotension Status: Acute Plan: IV fluids (2) Hypokalemia Status: Acute Plan: replace (3) Abdominal pain Status: Acute (4) Anemia Status: Acute (5) Hypertensive urgency Status: Acute (6) Gastritis Status: Acute (7) Nausea & vomiting Status: Acute Plan: I will recommend to continue with IV Protonix. I will recommend to give Reglan 10 mg four times a day. A repeat CT of the abdomen with contrast will be ordered. Cont NG tube with intermittent suctioning. Serological workup for liver diseases will be ordered. The patient will need further workup once she is more stable from a postoperative standpoint for which I have recommended outpatient follow up. Dulcolax Supp (8) Cholecystitis Status: Acute Plan: IV fluids, IV abx, Nausea and pain control. Patient unerwent EGD with Dr. Masters-see report. As per surgery team. NGT LIWS-as per surgery (9) Pneumonia Status: Acute Plan: IV abx
[2021-12-10] MEDS: D5 1/2 NS 1,000 ML 1,000 ML IV SCH ×5 (00:18→19:01)
[2021-12-10] MEDS: K-RIDER 10 MEQ/NS 100 ML 10 MEQ/100 ML BAG IV PRN ×3 (01:30→20:14)
[2021-12-10] MEDS: MAGNESIUM SULFATE 1 GRAM/100 mL PREMIX 1 G/100 ML BAG IV PRN (01:30)
[2021-12-10] MEDS: DEMEROL INJ IVP PRN ×5 (02:15→21:14)
[2021-12-10] MEDS: ATIVAN INJ 2 MG VIAL IVP PRN ×4 (03:50→23:30)
[2021-12-10 05:17] LABS: BASOPHILS # (AUTO) 0.1 X10^3/uL (0.0-0.1); BASOPHILS % (AUTO) 1.3 % (0.2-1.0); EOSINOPHILS # (AUTO) 0.1 x10^3/uL (0.0-0.2); EOSINOPHILS % (AUTO) 0.8 % (0.9-2.9); HEMATOCRIT 28.2 % (36.0-47.0); HEMOGLOBIN 9.9 g/dL (12.0-16.0); LYMPHOCYTES # (AUTO) 1.1 X10^3/uL (1.3-2.9); LYMPHOCYTES % (AUTO) 11.8 % (21.0-51.0); MEAN CORPUSCULAR HEMOGLOBIN 31.8 pg (27.0-34.0); MEAN CORPUSCULAR HGB CONC 35.1 g/dL (33.0-35.0); MEAN CORPUSCULAR VOLUME 90.8 fL (80.0-100.0); MEAN PLATELET VOLUME 7.5 fL (7.4-11.0); MONOCYTES # (AUTO) 0.7 x10^3/uL (0.3-0.8); MONOCYTES % (AUTO) 7.5 % (0.0-13.0); NEUTROPHILS # (AUTO) 7.1 x10^3/uL (2.2-4.8); NEUTROPHILS % (AUTO) 78.6 % (42.0-75.0); RED BLOOD COUNT 3.11 X10^6/uL (3.5-5.4); RED CELL DISTRIBUTION WIDTH 13.3 % (11.6-16.5)
[2021-12-10 05:28] LABS: ALANINE AMINOTRANSFERASE 31 Units/L (12-78); ALBUMIN 2.7 g/dL (3.4-5.0); ALKALINE PHOSPHATASE 78 Units/L (46-116); AMYLASE 135 Units/L (25-115); ASPARTATE AMINO TRANSFERASE 31 Units/L (15-37); BLOOD UREA NITROGEN 5 mg/dL (7-18); CALCIUM 7.5 mg/dL (8.5-10.1); CHLORIDE 101 mmol/L (98-107); COR CA(FOR HYPOALB) 8.5 mg/dL (8.5-10.1); CREATININE 0.44 mg/dL (0.55-1.02); LIPASE 793 Units/L (73-393); SODIUM 136 mmol/L (136-145); TOTAL PROTEIN 5.9 g/dL (6.4-8.2); eGFR NON BLACK RACES > 60 (>60)
[2021-12-10] MEDS: ZOSYN VIAL 3.375 GRAMS 3.375 G in NS 100 ML IV 100 ML IV SCH ×3 (05:40→21:14)
[2021-12-10] MEDS: REGLAN INJ 10 MG VIAL IVP SCH ×4 (05:40→22:31)
--- NOTE | 2021-12-10 06:39 | RAD ---
HISTORYILEUS HX: HTNSTUDYACUTE ABDOMEN [id number]/11/2022FINDINGSChest: Enteric catheter projects over the distal stomach/proximal duodenum. Heart size is upper normal. No significant pulmonary vasculature congestion. Lungs are clear. No pleural effusion or pneumothorax.Abdomen: Mild to moderate stool in the colon. Bowel gas pattern is nonspecific with paucity of small bowel gas. No dilated small bowel loops are seen. No free air. Cholecystectomy clips in the right upper quadrant.Additional: NoneIMPRESSIONNonspecific bowel gas pattern with paucity of small bowel gas. No dilated small bowel loops are seen. Stable positioning of nasogastric tube.Electronically signed by: Cristóbal Sutton (Dec 10, 2021 06:38:15)
[2021-12-10] MEDS: LOPRESSOR INJ 5 MG AMP IVP PRN (09:27)
--- NOTE | 2021-12-10 09:28 | DR.PROGNOT ---
Hospital Progress Notes - Progress Note for Day of: Progress Note Date: 12/10/21 - Chief Complaint Chief Complaint: having moderate amount of NGT drainage . nausea is controlled . NO BM BUT PASSING FLATUS. having abdominal pain requiring IV Demerol .. slight elevated Amylase , Lipase . mild hypokalemia . - Past Medical Family Social History Past Med/Fam/Surg Hx: No changes since H&P Allergies: Allergies No Known Drug Allergies Allergy (Verified 11/23/21 10:01) - Review Of Systems ROS: No change since H&P - Vital Signs Vital Signs: Temperature 98.4 F Pulse Rate 104 Respiratory Rate 16 Blood Pressure [Left Arm] 147/78 Blood Pressure 158/105 O2 Sat by Pulse Oximetry 95 - Physical Exam Oriented: Normal, Time, Person, Place Eyes: Normal Ear: Normal Nose: Normal Throat: Normal Respiratory: Normal Cardiovascular: Tachycardia : Normal GI:Auscultation: Decreased (soft, flat abdomen with moderate diffuse tenderness .. BS+) GI:Palpation: Normal GI: Tenderness: Diffuse (deepak drain), Moderate Skin: Decreased Turgur Musculoskeletal: Normal Psychiatric: Normal Mood Description: Calm Affect: Normal Speech Pattern: Clear, Appropriate - Laboratory and Diagnostics Result Diagrams: 12/10/21 04:55 12/10/21 04:55 Labs: 12/05/21 17:42 Blood Blood Culture - Preliminary 12/05/21 17:32 Blood Blood Culture - Preliminary Laboratory WBC 9.0 X10^3/uL (3.6-10.0) 12/10/21 04:55 RBC 3.11 X10^6/uL (3.5-5.4) L 12/10/21 04:55 Hgb 9.9 g/dL (12.0-16.0) L 12/10/21 04:55 Hct 28.2 % (36.0-47.0) L 12/10/21 04:55 MCV 90.8 fL (80.0-100.0) 12/10/21 04:55 MCH 31.8 pg (27.0-34.0) 12/10/21 04:55 MCHC 35.1 g/dL (33.0-35.0) H 12/10/21 04:55 RDW 13.3 % (11.6-16.5) 12/10/21 04:55 Plt Count 413 X10^3/uL (150.0-450.0) 12/10/21 04:55 Plt Count Comment Increased (ADEQUATE) A 12/06/21 10:22 MPV 7.5 fL (7.4-11.0) 12/10/21 04:55 Neut % (Auto) 78.6 % (42.0-75.0) H 12/10/21 04:55 Lymph % (Auto) 11.8 % (21.0-51.0) L 12/10/21 04:55 Carbon % (Auto) 7.5 % (0.0-13.0) 12/10/21 04:55 Eos % (Auto) 0.8 % (0.9-2.9) L 12/10/21 04:55 Baso % (Auto) 1.3 % (0.2-1.0) H 12/10/21 04:55 Neut # (Auto) 7.1 x10^3/uL (2.2-4.8) H 12/10/21 04:55 Lymph # (Auto) 1.1 X10^3/uL (1.3-2.9) L 12/10/21 04:55 Carbon # (Auto) 0.7 x10^3/uL (0.3-0.8) 12/10/21 04:55 Eos # (Auto) 0.1 x10^3/uL (0.0-0.2) 12/10/21 04:55 Baso # (Auto) 0.1 X10^3/uL (0.0-0.1) 12/10/21 04:55 Absolute Nucleated RBC 0.0 /100WBC 12/10/21 04:55 Total Counted 100 12/06/21 10:22 Neutrophils % (Manual) 98 % (39-76) H 12/06/21 10:22 Band Neutrophils % 1 % (0-10) 12/06/21 10:22 Lymphocytes % (Manual) 1 % (13-43) L 12/06/21 10:22 Plt Morphology Comment Normal (NORMAL) 12/06/21 10:22 RBC Morphology Normal (NORMAL) 12/06/21 10:22 PT 16.4 SECONDS (11.8-14.3) 12/06/21 10:22 INR Target Range - 12/06/21 10:22 INR 1.39 (0.8-1.3) H 12/06/21 10:22 Sodium 136 mmol/L (136-145) 12/10/21 04:55 Corrected Sodium TNP 12/10/21 04:55 Potassium 3.3 mmol/L (3.5-5.1) L 12/10/21 04:55 Chloride 101 mmol/L (98-107) 12/10/21 04:55 Carbon Dioxide 24.0 mmol/L (21-32) 12/10/21 04:55 BUN 5 mg/dL (7-18) L 12/10/21 04:55 Creatinine 0.44 mg/dL (0.55-1.02) L 12/10/21 04:55 Est GFR (MDRD) Af Amer > 60 (>60) 12/10/21 04:55 Est GFR (MDRD) Non-Af > 60 (>60) 12/10/21 04:55 Glucose 108 mg/dL (65-99) H 12/10/21 04:55 POC Glucose (mg/dL) 121 mg/dL (65-99) H 12/07/21 01:07 Calcium 7.5 mg/dL (8.5-10.1) L 12/10/21 04:55 Corrected Calcium 8.5 mg/dL (8.5-10.1) 12/10/21 04:55 Magnesium 2.4 mg/dL (1.7-2.9) 12/10/21 06:25 Iron 16 ug/dL (50-175) L 12/08/21 14:21 TIBC 205 ug/dL (250-450) L 12/08/21 14:21 % Saturation 7.8 % (11.0-46.0) L 12/08/21 14:21 Ferritin 155 ng/mL (8-252) 12/08/21 14:21 Total Bilirubin 0.80 mg/dL (0.2-1.0) 12/10/21 04:55 AST 31 Units/L (15-37) 12/10/21 04:55 ALT 31 Units/L (12-78) 12/10/21 04:55 Alkaline Phosphatase 78 Units/L (46-116) 12/10/21 04:55 Total Protein 5.9 g/dL (6.4-8.2) L 12/10/21 04:55 Albumin 2.7 g/dL (3.4-5.0) L 12/10/21 04:55 Globulin 3.2 g/dL (2.5-4.5) 12/10/21 04:55 Albumin/Globulin Ratio 0.8 Ratio (1.1-2.1) L 12/10/21 04:55 Amylase 135 Units/L (25-115) H 12/10/21 04:55 Lipase 793 Units/L (73-393) H 12/10/21 04:55 TSH 3rd Generation 1.311 uIU/mL (0.358-3.74) 12/03/21 18:47 HCG, Qual Negative <10 mIU/mL 12/04/21 04:39 SARS CoV-2 RNA Rapid MACK Negative (NEGATIVE) 12/03/21 20:49 Tissue Pathology To follow 12/06/21 08:27 - Assessment and Plan 1: post op lap verona . gastroparesis . mesenteric hematoma of unknown etiology . pulmonary infiltrates. HTN. to d/c NGT and start clear liquid .. , same ABT , Reglan , Protonix ... OOB and po care . add Lovenox . - Problem Patient Problems: Patient Problems Acute hypotension (Acute) I95.9 Hypokalemia (Acute) E87.6 Hypokalemia (Acute) E87.6 Abdominal pain (Acute) R10.9 Acute epigastric pain (Acute) R10.13 Anemia (Acute) D64.9 Hypertensive urgency (Acute) I16.0 Gastritis (Acute) K29.70 Nausea & vomiting (Acute) R11.2 Abnormal LFTs (Acute) R79.89 Cholecystitis (Acute) K81.9 Pneumonia (Acute) J18.9
[2021-12-10] MEDS: PROTONIX INJ 40 MG VIAL IVP SCH ×2 (09:31→20:15)
[2021-12-10] MEDS: LOVENOX INJ 40 MG SYR SC SCH (09:33)
[2021-12-10] MEDS: SYNTHROID INJ 100 mcg VIAL IM SCH (09:35)
--- NOTE | 2021-12-10 11:02 | PCM.PROG ---
Progress Note Progress Note for Day of Date of Exam: 12/10/21 Subjective Subjective: Patient is a 46 yo female who was admitted as per HPI. She is status post lap verona. This morning she reports some improvement in her nausea but did vomit last night and has had a moderate amount of return from her NG tube. Labs/imaging: Wbc 9.0, Hgb 9.9, Plt 413, Na 136, K 3.3, Creatinine 0.44, Glucose 108, Lipase 793, Abdominal XR: Nonspecific bowel gas pattern with paucity of small bowel gas. No dilated small bowel loops are seen. Stable positioning of NGT. She is currently receiving IVF, antiemetics, and IV demerol prn for pain. Antibiotics: IV Zosyn. Surgery plan to remove NG tube today and start on Clear liquid diet. Otherwise will continue with current treatment plan. Continue to monitor and follow up labs/imaging in the morning. Past Medical Family Social History Past Med/Fam/Surg Hx: No changes since H&P Allergies: Allergies No Known Drug Allergies Allergy (Verified 11/23/21 10:01) Review of Systems ROS: No change since H&P Vital Signs and I&O's Vital Signs: Temperature 98.4 F Pulse Rate 104 Respiratory Rate 16 Blood Pressure [Left Arm] 147/78 Blood Pressure 149/107 O2 Sat by Pulse Oximetry 95 Intake and Output: Intake & Output 12/07/21 12/08/21 12/09/21 12/10/21 23:59 23:59 23:59 23:59 Intake Total 2895 / 2895 3709 / 3709 2780 / 2780 718 / 718 Output Total 3525 / 3525 310 / 310 2200 / 2200 600 / 600 Balance -630 / -630 3399 / 3399 580 / 580 118 / 118 Physical Exam Oriented: Normal, Time, Person and Place Eyes: Normal Ear: Normal Nose: Normal Throat: Normal Respiratory: Normal Cardiovascular: Normal : Normal Auscultation: Bowel Sounds: Normal Tenderness: Diffuse (deepak drain) and Moderate Skin: Decreased Turgur Musculoskeletal: Normal Psychiatric: Normal Mood Description: Calm Affect: Normal Speech Pattern: Clear and Appropriate Laboratory and Diagnostics Result Diagrams: 12/10/21 04:55 12/10/21 04:55 Labs: 12/05/21 17:42 Blood Blood Culture - Preliminary 12/05/21 17:32 Blood Blood Culture - Preliminary Laboratory WBC 9.0 X10^3/uL (3.6-10.0) 12/10/21 04:55 RBC 3.11 X10^6/uL (3.5-5.4) L 12/10/21 04:55 Hgb 9.9 g/dL (12.0-16.0) L 12/10/21 04:55 Hct 28.2 % (36.0-47.0) L 12/10/21 04:55 MCV 90.8 fL (80.0-100.0) 12/10/21 04:55 MCH 31.8 pg (27.0-34.0) 12/10/21 04:55 MCHC 35.1 g/dL (33.0-35.0) H 12/10/21 04:55 RDW 13.3 % (11.6-16.5) 12/10/21 04:55 Plt Count 413 X10^3/uL (150.0-450.0) 12/10/21 04:55 Plt Count Comment Increased (ADEQUATE) A 12/06/21 10:22 MPV 7.5 fL (7.4-11.0) 12/10/21 04:55 Neut % (Auto) 78.6 % (42.0-75.0) H 12/10/21 04:55 Lymph % (Auto) 11.8 % (21.0-51.0) L 12/10/21 04:55 [place] % (Auto) 7.5 % (0.0-13.0) 12/10/21 04:55 Eos % (Auto) 0.8 % (0.9-2.9) L 12/10/21 04:55 Baso % (Auto) 1.3 % (0.2-1.0) H 12/10/21 04:55 Neut # (Auto) 7.1 x10^3/uL (2.2-4.8) H 12/10/21 04:55 Lymph # (Auto) 1.1 X10^3/uL (1.3-2.9) L 12/10/21 04:55 [place] # (Auto) 0.7 x10^3/uL (0.3-0.8) 12/10/21 04:55 Eos # (Auto) 0.1 x10^3/uL (0.0-0.2) 12/10/21 04:55 Baso # (Auto) 0.1 X10^3/uL (0.0-0.1) 12/10/21 04:55 Absolute Nucleated RBC 0.0 /100WBC 12/10/21 04:55 Total Counted 100 12/06/21 10:22 Neutrophils % (Manual) 98 % (39-76) H 12/06/21 10:22 Band Neutrophils % 1 % (0-10) 12/06/21 10:22 Lymphocytes % (Manual) 1 % (13-43) L 12/06/21 10:22 Plt Morphology Comment Normal (NORMAL) 12/06/21 10:22 RBC Morphology Normal (NORMAL) 12/06/21 10:22 PT 16.4 SECONDS (11.8-14.3) 12/06/21 10:22 INR Target Range - 12/06/21 10: INR 1.39 (0.8-1.3) H 12/06/21 10:22 Sodium 136 mmol/L (136-145) 12/10/21 04:55 Corrected Sodium TNP 12/10/21 04:55 Potassium 3.3 mmol/L (3.5-5.1) L 12/10/21 04:55 Chloride 101 mmol/L (98-107) 12/10/21 04:55 Carbon Dioxide 24.0 mmol/L (21-32) 12/10/21 04:55 BUN 5 mg/dL (7-18) L 12/10/21 04:55 Creatinine 0.44 mg/dL (0.55-1.02) L 12/10/21 04:55 Est GFR (MDRD) Af Amer > 60 (>60) 12/10/21 04:55 Est GFR (MDRD) Non-Af > 60 (>60) 12/10/21 04:55 Glucose 108 mg/dL (65-99) H 12/10/21 04:55 POC Glucose (mg/dL) 121 mg/dL (65-99) H 12/07/21 01:07 Calcium 7.5 mg/dL (8.5-10.1) L 12/10/21 04:55 Corrected Calcium 8.5 mg/dL (8.5-10.1) 12/10/21 04:55 Magnesium 2.4 mg/dL (1.7-2.9) 12/10/21 06:25 Iron 16 ug/dL (50-175) L 12/08/21 14:21 TIBC 205 ug/dL (250-450) L 12/08/21 14:21 % Saturation 7.8 % (11.0-46.0) L 12/08/21 14:21 Ferritin 155 ng/mL (8-252) 12/08/21 14:21 Total Bilirubin 0.80 mg/dL (0.2-1.0) 12/10/21 04:55 AST 31 Units/L (15-37) 12/10/21 04:55 ALT 31 Units/L (12-78) 12/10/21 04:55 Alkaline Phosphatase 78 Units/L (46-116) 12/10/21 04:55 Total Protein 5.9 g/dL (6.4-8.2) L 12/10/21 04:55 Albumin 2.7 g/dL (3.4-5.0) L 12/10/21 04:55 Globulin 3.2 g/dL (2.5-4.5) 12/10/21 04:55 Albumin/Globulin Ratio 0.8 Ratio (1.1-2.1) L 12/10/21 04:55 Amylase 135 Units/L (25-115) H 12/10/21 04:55 Lipase 793 Units/L (73-393) H 12/10/21 04:55 TSH 3rd Generation 1.311 uIU/mL (0.358-3.74) 12/03/21 18:47 HCG, Qual Negative <10 mIU/mL 12/04/21 04:39 SARS CoV-2 RNA Rapid MACK Negative (NEGATIVE) 12/03/21 20:49 Tissue Pathology To follow 12/06/21 08:27 Plan (1) Acute hypotension: Status: Acute Plan: IV fluids (2) Hypokalemia: Status: Acute Plan: replace (3) Abdominal pain: Status: Acute (4) Anemia: Status: Acute (5) Hypertensive urgency: Status: Acute (6) Gastritis: Status: Acute (7) Nausea & vomiting: Status: Acute Plan: I will recommend to continue with IV Protonix. I will recommend to give Reglan 10 mg four times a day. A repeat CT of the abdomen with contrast will be ordered. Cont NG tube with intermittent suctioning. Serological workup for liver diseases will be ordered. The patient will need further workup once s he is more stable from a postoperative standpoint for which I have recommended outpatient follow up. Dulcolax Supp (8) Cholecystitis: Status: Acute Plan: IV fluids, IV abx, Nausea and pain control Patient unerwent EGD with Dr. Masters-see report. As per surgery team NGT LIWS-as per surgery (9) Pneumonia: Status: Acute Plan: IV abx
[2021-12-10] MEDS: APRESOLINE INJ 20 MG VIAL IVP PRN ×2 (13:00→17:30)
[2021-12-10] MEDS: ZOFRAN INJ 4 MG VIAL IVP PRN (21:19)
[2021-12-10] MEDS: NS 500 ML IV 500 ML IV PRN (22:32)
[2021-12-11] MEDS: D5 1/2 NS 1,000 ML 1,000 ML IV SCH ×3 (03:36→18:02)
[2021-12-11] MEDS: DEMEROL INJ IVP PRN ×6 (03:36→23:50)
[2021-12-11] MEDS: ZOFRAN INJ 4 MG VIAL IVP PRN ×3 (03:37→23:47)
[2021-12-11 04:58] LABS: BASOPHILS # (AUTO) 0.1 X10^3/uL (0.0-0.1); BASOPHILS % (AUTO) 1.4 % (0.2-1.0); EOSINOPHILS # (AUTO) 0.1 x10^3/uL (0.0-0.2); EOSINOPHILS % (AUTO) 1.4 % (0.9-2.9); HEMATOCRIT 28.8 % (36.0-47.0); HEMOGLOBIN 10.2 g/dL (12.0-16.0); LYMPHOCYTES % (AUTO) 15.3 % (21.0-51.0); MEAN CORPUSCULAR HEMOGLOBIN 31.8 pg (27.0-34.0); MEAN CORPUSCULAR HGB CONC 35.2 g/dL (33.0-35.0); MEAN CORPUSCULAR VOLUME 90.4 fL (80.0-100.0); MEAN PLATELET VOLUME 7.4 fL (7.4-11.0); MONOCYTES # (AUTO) 0.7 x10^3/uL (0.3-0.8); MONOCYTES % (AUTO) 10.3 % (0.0-13.0); NEUTROPHILS # (AUTO) 4.6 x10^3/uL (2.2-4.8); NEUTROPHILS % (AUTO) 71.6 % (42.0-75.0); RED BLOOD COUNT 3.19 X10^6/uL (3.5-5.4); RED CELL DISTRIBUTION WIDTH 13.4 % (11.6-16.5); WHITE BLOOD COUNT 6.5 X10^3/uL (3.6-10.0)
[2021-12-11] MEDS: REGLAN INJ 10 MG VIAL IVP SCH ×4 (05:07→22:17)
[2021-12-11] MEDS: ZOSYN VIAL 3.375 GRAMS 3.375 G in NS 100 ML IV 100 ML IV SCH ×3 (05:07→21:02)
[2021-12-11 05:11] LABS: ALANINE AMINOTRANSFERASE 60 Units/L (12-78); ALBUMIN 2.9 g/dL (3.4-5.0); ALKALINE PHOSPHATASE 98 Units/L (46-116); ASPARTATE AMINO TRANSFERASE 69 Units/L (15-37); BLOOD UREA NITROGEN 3 mg/dL (7-18); CALCIUM 7.9 mg/dL (8.5-10.1); CARBON DIOXIDE 26.4 mmol/L (21-32); CHLORIDE 102 mmol/L (98-107); COR CA(FOR HYPOALB) 8.8 mg/dL (8.5-10.1); CREATININE 0.51 mg/dL (0.55-1.02); SODIUM 137 mmol/L (136-145); TOTAL PROTEIN 6.1 g/dL (6.4-8.2); eGFR NON BLACK RACES > 60 (>60)
[2021-12-11] MEDS: ATIVAN INJ 2 MG VIAL IVP PRN ×2 (05:15→21:15)
[2021-12-11] MEDS: APRESOLINE INJ 20 MG VIAL IVP PRN (06:08)
[2021-12-11] MEDS: LOVENOX INJ 40 MG SYR SC SCH (09:05)
[2021-12-11] MEDS: PROTONIX INJ 40 MG VIAL IVP SCH ×2 (09:06→20:07)
[2021-12-11] MEDS: SYNTHROID INJ 100 mcg VIAL IM SCH (09:07)
[2021-12-11] MEDS ORDERED: PHENERGAN INJ 25 MG IM ONE (09:17)
[2021-12-11] MEDS: PHENERGAN INJ 25 MG IM PRN (09:25)
[2021-12-11] MEDS ORDERED: PHARMACY CONSULT - TPN XX SCH (10:00)
--- NOTE | 2021-12-11 10:26 | PCM.PROG ---
Progress Note Progress Note for Day of Date of Exam: 12/11/21 Subjective Subjective: Patient is a 46 yo female who was admitted as per HPI. She is status post lap verona. This morning she reports no significant improvement in nausea and vomiting compared to yesterday. Yesterday, her NG tube was clamped and early this morning she felt very nauseous and when unclamped 700cc of output was noted. She has now not eaten in many days, will start on TPN for nutrition and continue with clear liquid diet. Labs/imaging: Wbc 6.5, Hgb 10.2, Plt 427, Na 137, K 3.6, Creatinine 0.51, Glucose 93. She is currently receiving IVF, antiemetics, and IV demerol prn for pain. Antibiotics: IV Zosyn. Will follow up on Surgery's recommendation and plan. Otherwise will continue with current gayatri tment plan. Continue to monitor and follow up labs/imaging in the morning. Past Medical Family Social History Past Med/Fam/Surg Hx: No changes since H&P Allergies: Allergies No Known Drug Allergies Allergy (Verified 11/23/21 10:01) Review of Systems ROS: No change since H&P Vital Signs and I&O's Vital Signs: Temperature 98.4 F Pulse Rate 110 Respiratory Rate 18 Blood Pressure [Left Arm] 147/78 Blood Pressure 148/86 O2 Sat by Pulse Oximetry 97 Intake and Output: Intake & Output 12/08/21 12/09/21 12/10/21 12/12/21 23:59 23:59 23:59 00:59 Intake Total 3709 / 3709 2780 / 2780 1618 / 1618 722 / 722 Output Total 310 / 310 2200 / 2200 1800 / 1800 750 / 750 Balance 3399 / 3399 580 / 580 -182 / -182 -28 / -28 Physical Exam Oriented: Normal, Time, Person and Place Eyes: Normal Ear: Normal Nose: Normal Throat: Normal Respiratory: Normal Cardiovascular: Normal : Normal Auscultation: Bowel Sounds: Normal Tenderness: Diffuse (deepak drain) and Moderate Skin: Decreased Turgur Musculoskeletal: Normal Psychiatric: Normal Mood Description: Calm Affect: Normal Speech Pattern: Clear and Appropriate Laboratory and Diagnostics Result Diagrams: 12/11/21 04:33 12/11/21 04:33 Labs: 12/05/21 17:42 Blood Blood Culture - Final 12/05/21 17:32 Blood Blood Culture - Final Laboratory WBC 6.5 X10^3/uL (3.6-10.0) 12/11/21 04:33 RBC 3.19 X10^6/uL (3.5-5.4) L 12/11/21 04:33 Hgb 10.2 g/dL (12.0-16.0) L 12/11/21 04:33 Hct 28.8 % (36.0-47.0) L 12/11/21 04:33 MCV 90.4 fL (80.0-100.0) 12/11/21 04:33 MCH 31.8 pg (27.0-34.0) 12/11/21 04:33 MCHC 35.2 g/dL (33.0-35.0) H 12/11/21 04:33 RDW 13.4 % (11.6-16.5) 12/11/21 04:33 Plt Count 427 X10^3/uL (150.0-450.0) 12/11/21 04:33 Plt Count Comment Increased (ADEQUATE) A 12/06/21 10:22 MPV 7.4 fL (7.4-11.0) 12/11/21 04:33 Neut % (Auto) 71.6 % (42.0-75.0) 12/11/21 04:33 Lymph % (Auto) 15.3 % (21.0-51.0) L 12/11/21 04:33 [place] % (Auto) 10.3 % (0.0-13.0) 12/11/21 04:33 Eos % (Auto) 1.4 % (0.9-2.9) 12/11/21 04:33 Baso % (Auto) 1.4 % (0.2-1.0) H 12/11/21 04:33 Neut # (Auto) 4.6 x10^3/uL (2.2-4.8) 12/11/21 04:33 Lymph # (Auto) 1.0 X10^3/uL (1.3-2.9) L 12/11/21 04:33 [place] # (Auto) 0.7 x10^3/uL (0.3-0.8) 12/11/21 04:33 Eos # (Auto) 0.1 x10^3/uL (0.0-0.2) 12/11/21 04:33 Baso # (Auto) 0.1 X10^3/uL (0.0-0.1) 12/11/21 04:33 Absolute Nucleated RBC 0.0 /100WBC 12/11/21 04:33 Total Counted 100 12/06/21 10:22 Neutrophils % (Manual) 98 % (39-76) H 12/06/21 10:22 Band Neutrophils % 1 % (0-10) 12/06/21 10:22 Lymphocytes % (Manual) 1 % (13-43) L 12/06/21 10:22 Plt Morphology Comment Normal (NORMAL) 12/06/21 10:22 RBC Morphology Normal (NORMAL) 12/06/21 10:22 PT 16.4 SECONDS (11.8-14.3) 12/06/21 10:22 INR Target Range - 12/06/21 10:22 INR 1.39 (0.8-1.3) H 12/06/21 10:22 Sodium 137 mmol/L (136-145) 12/11/21 04:33 Corrected Sodium TNP 12/11/21 04:33 Potassium 3.6 mmol/L (3.5-5.1) 12/11/21 04:33 Chloride 102 mmol/L (98-107) 12/11/21 04:33 Carbon Dioxide 26.4 mmol/L (21-32) 12/11/21 04:33 BUN 3 mg/dL (7-18) L 12/11/21 04:33 Creatinine 0.51 mg/dL (0.55-1.02) L 12/11/21 04:33 Est GFR (MDRD) Af Amer > 60 (>60) 12/11/21 04:33 Est GFR (MDRD) Non-Af > 60 (>60) 12/11/21 04:33 Glucose 93 mg/dL (65-99) 12/11/21 04:33 POC Glucose (mg/dL) 121 mg/dL (65-99) H 12/07/21 01:07 Calcium 7.9 mg/dL (8.5-10.1) L 12/11/21 04:33 Corrected Calcium 8.8 mg/dL (8.5-10.1) 12/11/21 04:33 Magnesium 2.4 mg/dL (1.7-2.9) 12/10/21 06:25 Iron 16 ug/dL (50-175) L 12/08/21 14:21 TIBC 205 ug/dL (250-450) L 12/08/21 14:21 % Saturation 7.8 % (11.0-46.0) L 12/08/21 14:21 Ferritin 155 ng/mL (8-252) 12/08/21 14:21 Total Bilirubin 1.00 mg/dL (0.2-1.0) 12/11/21 04:33 AST 69 Units/L (15-37) H 12/11/21 04:33 ALT 60 Units/L (12-78) 12/11/21 04:33 Alkaline Phosphatase 98 Units/L (46-116) 12/11/21 04:33 Total Protein 6.1 g/dL (6.4-8.2) L 12/11/21 04:33 Albumin 2.9 g/dL (3.4-5.0) L 12/11/21 04:33 Globulin 3.2 g/dL (2.5-4.5) 12/11/21 04:33 Albumin/Globulin Ratio 0.9 Ratio (1.1-2.1) L 12/11/21 04:33 Amylase 135 Units/L (25-115) H 12/10/21 04:55 Lipase 793 Units/L (73-393) H 12/10/21 04:55 TSH 3rd Generation 1.311 uIU/mL (0.358-3.74) 12/03/21 18:47 HCG, Qual Negative <10 mIU/mL 12/04/21 04:39 SARS CoV-2 RNA Rapid MCAK Negative (NEGATIVE) 12/03/21 20:49 Tissue Pathology To follow 12/06/21 08:27 Plan (1) Acute hypotension: Status: Acute Plan: IV fluids (2) Hypokalemia: Status: Acute Plan: replace (3) Abdominal pain: Status: Acute (4) Anemia: Status: Acute (5) Hypertensive urgency: Status: Acute (6) Gastritis: Status: Acute (7) Nausea & vomiting: Status: Acute Plan: I will recommend to continue with IV Protonix. I will recommend to give Reglan 10 mg four times a day. A repeat CT of the abdomen with contrast will be ordered. Cont NG tube with intermittent suctioning. Serological workup for liver diseases will be ordered. The patient will need further workup once she is more stable from a postoperative standpoint for which I have recommended outpatient follow up. Dulcolax Supp (8) Cholecystitis: Status: Acute Plan: IV fluids, IV abx, Nausea and pain control Patient unerwent EGD with Dr. Masters-see report. As per surgery team NGT LIWS-as per surgery (9) Pneumonia: Status: Acute Plan: IV abx
[2021-12-11] MEDS: CLINIMIX 5 %/20 % 1,000 ML with MVI INJ (ADULT) 10 ML IV SCH ×2 (10:40)
[2021-12-11] MEDS ORDERED: DEXTROSE 10% 1,000 ML IV PRN (11:19)
[2021-12-11] MEDS ORDERED: NovoLIN R (or HumuLIN R) SUBCUT PRN (11:19)
--- NOTE | 2021-12-11 11:29 | DR.PROGNOT ---
Hospital Progress Notes - Progress Note for Day of: Progress Note Date: 12/11/21 - Chief Complaint Chief Complaint: tolerating clamping NGT over noght .. moderate abdominal pain . no BM yet . - Past Medical Family Social History Past Med/Fam/Surg Hx: No changes since H&P Allergies: Allergies No Known Drug Allergies Allergy (Verified 11/23/21 10:01) - Review Of Systems ROS: No change since H&P - Vital Signs Vital Signs: Temperature 98.4 F Pulse Rate 106 Respiratory Rate 18 Blood Pressure [Left Arm] 147/78 Blood Pressure 151/91 O2 Sat by Pulse Oximetry 97 - Physical Exam Oriented: Normal, Time, Person, Place Eyes: Normal Ear: Normal Nose: Normal Throat: Normal Respiratory: Normal Cardiovascular: Normal : Normal GI:Auscultation: Normal GI:Palpation: Normal, Other (soft abdomen with moderate diffuse tenderness .. BS+) GI: Tenderness: Diffuse (deepak drain), Moderate Skin: Decreased Turgur Musculoskeletal: Normal Psychiatric: Normal Mood Description: Calm Affect: Normal Speech Pattern: Clear, Appropriate - Laboratory and Diagnostics Result Diagrams: 12/11/21 04:33 12/11/21 04:33 Labs: 12/05/21 17:42 Blood Blood Culture - Final 12/05/21 17:32 Blood Blood Culture - Final Laboratory WBC 6.5 X10^3/uL (3.6-10.0) 12/11/21 04:33 RBC 3.19 X10^6/uL (3.5-5.4) L 12/11/21 04:33 Hgb 10.2 g/dL (12.0-16.0) L 12/11/21 04:33 Hct 28.8 % (36.0-47.0) L 12/11/21 04:33 MCV 90.4 fL (80.0-100.0) 12/11/21 04:33 MCH 31.8 pg (27.0-34.0) 12/11/21 04:33 MCHC 35.2 g/dL (33.0-35.0) H 12/11/21 04:33 RDW 13.4 % (11.6-16.5) 12/11/21 04:33 Plt Count 427 X10^3/uL (150.0-450.0) 12/11/21 04:33 Plt Count Comment Increased (ADEQUATE) A 12/06/21 10:22 MPV 7.4 fL (7.4-11.0) 12/11/21 04:33 Neut % (Auto) 71.6 % (42.0-75.0) 12/11/21 04:33 Lymph % (Auto) 15.3 % (21.0-51.0) L 12/11/21 04:33 [place] % (Auto) 10.3 % (0.0-13.0) 12/11/21 04:33 Eos % (Auto) 1.4 % (0.9-2.9) 12/11/21 04:33 Baso % (Auto) 1.4 % (0.2-1.0) H 12/11/21 04:33 Neut # (Auto) 4.6 x10^3/uL (2.2-4.8) 12/11/21 04:33 Lymph # (Auto) 1.0 X10^3/uL (1.3-2.9) L 12/11/21 04:33 [place] # (Auto) 0.7 x10^3/uL (0.3-0.8) 12/11/21 04:33 Eos # (Auto) 0.1 x10^3/uL (0.0-0.2) 12/11/21 04:33 Baso # (Auto) 0.1 X10^3/uL (0.0-0.1) 12/11/21 04:33 Absolute Nucleated RBC 0.0 /100WBC 12/11/21 04:33 Total Counted 100 12/06/21 10:22 Neutrophils % (Manual) 98 % (39-76) H 12/06/21 10:22 Band Neutrophils % 1 % (0-10) 12/06/21 10:22 Lymphocytes % (Manual) 1 % (13-43) L 12/06/21 10:22 Plt Morphology Comment Normal (NORMAL) 12/06/21 10:22 RBC Morphology Normal (NORMAL) 12/06/21 10:22 PT 16.4 SECONDS (11.8-14.3) 12/06/21 10:22 INR Target Range - 12/06/21 10:22 INR 1.39 (0.8-1.3) H 12/06/21 10:22 Sodium 137 mmol/L (136-145) 12/11/21 04:33 Corrected Sodium TNP 12/11/21 04:33 Potassium 3.6 mmol/L (3.5-5.1) 12/11/21 04:33 Chloride 102 mmol/L (98-107) 12/11/21 04:33 Carbon Dioxide 26.4 mmol/L (21-32) 12/11/21 04:33 BUN 3 mg/dL (7-18) L 12/11/21 04:33 Creatinine 0.51 mg/dL (0.55-1.02) L 12/11/21 04:33 Est GFR (MDRD) Af Amer > 60 (>60) 12/11/21 04:33 Est GFR (MDRD) Non-Af > 60 (>60) 12/11/21 04:33 Glucose 93 mg/dL (65-99) 12/11/21 04:33 POC Glucose (mg/dL) 121 mg/dL (65-99) H 12/07/21 01:07 Calcium 7.9 mg/dL (8.5-10.1) L 12/11/21 04:33 Corrected Calcium 8.8 mg/dL (8.5-10.1) 12/11/21 04:33 Magnesium 2.4 mg/dL (1.7-2.9) 12/10/21 06:25 Iron 16 ug/dL (50-175) L 12/08/21 14:21 TIBC 205 ug/dL (250-450) L 12/08/21 14:21 % Saturation 7.8 % (11.0-46.0) L 12/08/21 14:21 Ferritin 155 ng/mL (8-252) 12/08/21 14:21 Total Bilirubin 1.00 mg/dL (0.2-1.0) 12/11/21 04:33 AST 69 Units/L (15-37) H 12/11/21 04:33 ALT 60 Units/L (12-78) 12/11/21 04:33 Alkaline Phosphatase 98 Units/L (46-116) 12/11/21 04:33 Total Protein 6.1 g/dL (6.4-8.2) L 12/11/21 04:33 Albumin 2.9 g/dL (3.4-5.0) L 12/11/21 04:33 Globulin 3.2 g/dL (2.5-4.5) 12/11/21 04:33 Albumin/Globulin Ratio 0.9 Ratio (1.1-2.1) L 12/11/21 04:33 Prealbumin 14.1 mg/dL (18-35.7) L 12/11/21 04:33 Amylase 135 Units/L (25-115) H 12/10/21 04:55 Lipase 793 Units/L (73-393) H 12/10/21 04:55 TSH 3rd Generation 1.311 uIU/mL (0.358-3.74) 12/03/21 18:47 HCG, Qual Negative <10 mIU/mL 12/04/21 04:39 SARS CoV-2 RNA Rapid MACK Negative (NEGATIVE) 12/03/21 20:49 Tissue Pathology To follow 12/06/21 08:27 - Assessment and Plan 1: post op lap [place] . gastroparesis . mesenteric hematoma of unknown becky ology . pulmonary infiltrates. HTN. to keep NGT clamped ..start TPN .. , same ABT , Reglan , Protonix ... OOB and po care . . - Problem Patient Problems: Patient Problems Acute hypotension (Acute) I95.9 Hypokalemia (Acute) E87.6 Hypokalemia (Acute) E87.6 Abdominal pain (Acute) R10.9 Acute epigastric pain (Acute) R10.13 Anemia (Acute) D64.9 Hypertensive urgency (Acute) I16.0 Gastritis (Acute) K29.70 Nausea & vomiting (Acute) R11.2 Abnormal LFTs (Acute) R79.89 Cholecystitis (Acute) K81.9 Pneumonia (Acute) J18.9
--- NOTE | 2021-12-11 11:52 | DR.PROGNOT ---
Hospital Progress Notes - Progress Note for Day of: Progress Note Date: 12/11/21 - Chief Complaint Chief Complaint: NGT was clamped over night . no vomiting so far . moderate abdominal pain. nausea is controlled . no BM yet .... slight elevated Amylase , Lipase . mild hypokalemia . - Past Medical Family Social History Past Med/Fam/Surg Hx: No changes since H&P Allergies: Allergies No Known Drug Allergies Allergy (Verified 11/23/21 10:01) - Review Of Systems ROS: No change since H&P - Vital Signs Vital Signs: Temperature 98.4 F Pulse Rate 110 Respiratory Rate 18 Blood Pressure [Left Arm] 147/78 Blood Pressure 148/86 O2 Sat by Pulse Oximetry 97 - Physical Exam Oriented: Normal, Time, Person, Place Eyes: Normal Ear: Normal Nose: Normal Throat: Normal Respiratory: Normal Cardiovascular: Normal : Normal GI:Auscultation: Normal GI:Palpation: Normal GI: Tenderness: Diffuse (deepak drain), Moderate Skin: Decreased Turgur Musculoskeletal: Normal Psychiatric: Normal Mood Description: Calm Affect: Normal Speech Pattern: Clear, Appropriate - Laboratory and Diagnostics Result Diagrams: 12/11/21 04:33 12/11/21 04:33 Labs: 12/05/21 17:42 Blood Blood Culture - Final 12/05/21 17:32 Blood Blood Culture - Final Laboratory WBC 6.5 X10^3/uL (3.6-10.0) 12/11/21 04:33 RBC 3.19 X10^6/uL (3.5-5.4) L 12/11/21 04:33 Hgb 10.2 g/dL (12.0-16.0) L 12/11/21 04:33 Hct 28.8 % (36.0-47.0) L 12/11/21 04:33 MCV 90.4 fL (80.0-100.0) 12/11/21 04:33 MCH 31.8 pg (27.0-34.0) 12/11/21 04:33 MCHC 35.2 g/dL (33.0-35.0) H 12/11/21 04:33 RDW 13.4 % (11.6-16.5) 12/11/21 04:33 Plt Count 427 X10^3/uL (150.0-450.0) 12/11/21 04:33 Plt Count Comment Increased (ADEQUATE) A 12/06/21 10:22 MPV 7.4 fL (7.4-11.0) 12/11/21 04:33 Neut % (Auto) 71.6 % (42.0-75.0) 12/11/21 04:33 Lymph % (Auto) 15.3 % (21.0-51.0) L 12/11/21 04:33 [place] % (Auto) 10.3 % (0.0-13.0) 12/11/21 04:33 Eos % (Auto) 1.4 % (0.9-2.9) 12/11/21 04:33 Baso % (Auto) 1.4 % (0.2-1.0) H 12/11/21 04:33 Neut # (Auto) 4.6 x10^3/uL (2.2-4.8) 12/11/21 04:33 Lymph # (Auto) 1.0 X10^3/uL (1.3-2.9) L 12/11/21 04:33 [place] # (Auto) 0.7 x10^3/uL (0.3-0.8) 12/11/21 04:33 Eos # (Auto) 0.1 x10^3/uL (0.0-0.2) 12/11/21 04:33 Baso # (Auto) 0.1 X10^3/uL (0.0-0.1) 12/11/21 04:33 Absolute Nucleated RBC 0.0 /100WBC 12/11/21 04:33 Total Counted 100 12/06/21 10:22 Neutrophils % (Manual) 98 % (39-76) H 12/06/21 10:22 Band Neutrophils % 1 % (0-10) 12/06/21 10:22 Lymphocytes % (Manual) 1 % (13-43) L 12/06/21 10:22 Plt Morphology Comment Normal (NORMAL) 12/06/21 10:22 RBC Morphology Normal (NORMAL) 12/06/21 10:22 PT 16.4 SECONDS (11.8-14.3) 12/06/21 10:22 INR Target Range - 12/06/21 10:22 INR 1.39 (0.8-1.3) H 12/06/21 10:22 Sodium 137 mmol/L (136-145) 12/11/21 04:33 Corrected Sodium TNP 12/11/21 04:33 Potassium 3.6 mmol/L (3.5-5.1) 12/11/21 04:33 Chloride 102 mmol/L (98-107) 12/11/21 04:33 Carbon Dioxide 26.4 mmol/L (21-32) 12/11/21 04:33 BUN 3 mg/dL (7-18) L 12/11/21 04:33 Creatinine 0.51 mg/dL (0.55-1.02) L 12/11/21 04:33 Est GFR (MDRD) Af Amer > 60 (>60) 12/11/21 04:33 Est GFR (MDRD) Non-Af > 60 (>60) 12/11/21 04:33 Glucose 93 mg/dL (65-99) 12/11/21 04:33 POC Glucose (mg/dL) 121 mg/dL (65-99) H 12/07/21 01:07 Calcium 7.9 mg/dL (8.5-10.1) L 12/11/21 04:33 Corrected Calcium 8.8 mg/dL (8.5-10.1) 12/11/21 04:33 Magnesium 2.4 mg/dL (1.7-2.9) 12/10/21 06:25 Iron 16 ug/dL (50-175) L 12/08/21 14:21 TIBC 205 ug/dL (250-450) L 12/08/21 14:21 % Saturation 7.8 % (11.0-46.0) L 12/08/21 14:21 Ferritin 155 ng/mL (8-252) 12/08/21 14:21 Total Bilirubin 1.00 mg/dL (0.2-1.0) 12/11/21 04:33 AST 69 Units/L (15-37) H 12/11/21 04:33 ALT 60 Units/L (12-78) 12/11/21 04:33 Alkaline Phosphatase 98 Units/L (46-116) 12/11/21 04:33 Total Protein 6.1 g/dL (6.4-8.2) L 12/11/21 04:33 Albumin 2.9 g/dL (3.4-5.0) L 12/11/21 04:33 Globulin 3.2 g/dL (2.5-4.5) 12/11/21 04:33 Albumin/Globulin Ratio 0.9 Ratio (1.1-2.1) L 12/11/21 04:33 Prealbumin 14.1 mg/dL (18-35.7) L 12/11/21 04:33 Amylase 135 Units/L (25-115) H 12/10/21 04:55 Lipase 793 Units/L (73-393) H 12/10/21 04:55 TSH 3rd Generation 1.311 uIU/mL (0.358-3.74) 12/03/21 18:47 HCG, Qual Negative <10 mIU/mL 12/04/21 04:39 SARS CoV-2 RNA Rapid MACK Negative (NEGATIVE) 12/03/21 20:49 Tissue Pathology To follow 12/06/21 08:27 - Assessment and Plan 1: post op lap [place] . gastroparesis . mesenteric hematoma of unknown etiology . pulmonary infiltrates. HTN. to d/c NGT and start clear liquid .. , same ABT , Reglan , Protonix ... OOB and po care . add Lovenox . - Problem Patient Problems: Patient Problems Acute hypotension (Acute) I95.9 Hypokalemia (Acute) E87.6 Hypokalemia (Acute) E87.6 Abdominal pain (Acute) R10.9 Acute epigastric pain (Acute) R10.13 Anemia (Acute) D64.9 Hypertensive urgency (Acute) I16.0 Gastritis (Acute) K29.70 Nausea & vomiting (Acute) R11.2 Abnormal LFTs (Acute) R79.89 Cholecystitis (Acute) K81.9 Pneumonia (Acute) J18.9
[2021-12-11] MEDS: LOPRESSOR INJ 5 MG AMP IVP PRN (12:08)
[2021-12-12] MEDS: ATIVAN INJ 2 MG VIAL IVP PRN ×3 (03:12→20:54)
[2021-12-12] MEDS: D5 1/2 NS 1,000 ML 1,000 ML IV SCH ×3 (03:12→20:45)
[2021-12-12] MEDS: DEMEROL INJ IVP PRN ×6 (03:40→23:30)
[2021-12-12] MEDS: ZOFRAN INJ 4 MG VIAL IVP PRN ×4 (03:40→23:30)
[2021-12-12 04:55] LABS: BASOPHILS # (AUTO) 0.1 X10^3/uL (0.0-0.1); EOSINOPHILS # (AUTO) 0.1 x10^3/uL (0.0-0.2); EOSINOPHILS % (AUTO) 1.3 % (0.9-2.9); HEMATOCRIT 29.5 % (36.0-47.0); HEMOGLOBIN 10.1 g/dL (12.0-16.0); LYMPHOCYTES # (AUTO) 0.8 X10^3/uL (1.3-2.9); LYMPHOCYTES % (AUTO) 11.5 % (21.0-51.0); MEAN CORPUSCULAR HGB CONC 34.2 g/dL (33.0-35.0); MEAN CORPUSCULAR VOLUME 90.5 fL (80.0-100.0); MEAN PLATELET VOLUME 7.4 fL (7.4-11.0); MONOCYTES # (AUTO) 0.7 x10^3/uL (0.3-0.8); MONOCYTES % (AUTO) 9.1 % (0.0-13.0); NEUTROPHILS # (AUTO) 5.6 x10^3/uL (2.2-4.8); NEUTROPHILS % (AUTO) 77.1 % (42.0-75.0); RED BLOOD COUNT 3.26 X10^6/uL (3.5-5.4); RED CELL DISTRIBUTION WIDTH 13.4 % (11.6-16.5); WHITE BLOOD COUNT 7.2 X10^3/uL (3.6-10.0)
[2021-12-12 05:01] LABS: PREALBUMIN 15.2 mg/dL (18-35.7)
[2021-12-12 05:11] LABS: ALANINE AMINOTRANSFERASE 74 Units/L (12-78); ALBUMIN 2.8 g/dL (3.4-5.0); ALKALINE PHOSPHATASE 95 Units/L (46-116); ASPARTATE AMINO TRANSFERASE 71 Units/L (15-37); BLOOD UREA NITROGEN 7 mg/dL (7-18); CALCIUM 7.9 mg/dL (8.5-10.1); CARBON DIOXIDE 27.7 mmol/L (21-32); CHLORIDE 102 mmol/L (98-107); COR CA(FOR HYPOALB) 8.9 mg/dL (8.5-10.1); COR NA(FOR HYPERGLY) 139 mmol/L (136-145); CREATININE 0.55 mg/dL (0.55-1.02); MAGNESIUM 2.1 mg/dL (1.7-2.9); PHOSPHORUS 4.2 mg/dL (2.6-4.7); SODIUM 138 mmol/L (136-145); TOTAL PROTEIN 6.1 g/dL (6.4-8.2); TRIGLYCERIDES 79 mg/dL (0-150); eGFR NON BLACK RACES > 60 (>60)
[2021-12-12] MEDS: REGLAN INJ 10 MG VIAL IVP SCH ×4 (05:17→22:48)
[2021-12-12] MEDS: ZOSYN VIAL 3.375 GRAMS 3.375 G in NS 100 ML IV 100 ML IV SCH ×3 (05:17→22:48)
[2021-12-12] MEDS: CLINIMIX 5 %/20 % 1,000 ML with MVI INJ (ADULT) 10 ML IV SCH ×2 (05:50)
[2021-12-12] MEDS: K-RIDER 10 MEQ/NS 100 ML 10 MEQ/100 ML BAG IV PRN ×2 (06:52→09:19)
[2021-12-12] MEDS: LOVENOX INJ 40 MG SYR SC SCH (09:09)
[2021-12-12] MEDS: PROTONIX INJ 40 MG VIAL IVP SCH ×2 (09:10→20:53)
[2021-12-12] MEDS: SYNTHROID INJ 100 mcg VIAL IM SCH (09:10)
[2021-12-12] MEDS: CLINIMIX 4.25 %/10 % 1,000 ML with MVI INJ (ADULT) 10 ML, POTASSIUM CHLORIDE INJ 20 MEQ... IV SCH ×3 (09:12)
--- NOTE | 2021-12-12 13:49 | DR.PROGNOT ---
Hospital Progress Notes - Progress Note for Day of: Progress Note Date: 12/12/21 - Chief Complaint Chief Complaint: still having large drainage from NGT , unable to tolerate clamping NGT .. abdominal pain is controlled .. BP is controlled .. no BM yet .. - Past Medical Family Social History Past Med/Fam/Surg Hx: No changes since H&P Allergies: Allergies No Known Drug Allergies Allergy (Verified 11/23/21 10:01) - Review Of Systems ROS: No change since H&P - Vital Signs Vital Signs: Temperature 97.9 F Pulse Rate 84 Respiratory Rate 16 Blood Pressure [Left Arm] 147/78 Blood Pressure 164/101 O2 Sat by Pulse Oximetry 97 - Physical Exam Oriented: Normal, Time, Person, Place Eyes: Normal Ear: Normal Nose: Normal Throat: Normal Respiratory: Normal Cardiovascular: Normal : Normal GI:Auscultation: Normal GI:Palpation: Normal, Other (soft abdomen with moderate diffuse tenderness .. BS+) GI: Tenderness: Diffuse (deepak drain), Moderate Skin: Decreased Turgur Musculoskeletal: Normal Psychiatric: Normal Mood Description: Calm Affect: Normal Speech Pattern: Clear, Appropriate - Laboratory and Diagnostics Result Diagrams: 12/12/21 04:25 12/12/21 04:25 Labs: 12/05/21 17:42 Blood Blood Culture - Final 12/05/21 17:32 Blood Blood Culture - Final Laboratory WBC 7.2 X10^3/uL (3.6-10.0) 12/12/21 04:25 RBC 3.26 X10^6/uL (3.5-5.4) L 12/12/21 04:25 Hgb 10.1 g/dL (12.0-16.0) L 12/12/21 04:25 Hct 29.5 % (36.0-47.0) L 12/12/21 04:25 MCV 90.5 fL (80.0-100.0) 12/12/21 04:25 MCH 31.0 pg (27.0-34.0) 12/12/21 04:25 MCHC 34.2 g/dL (33.0-35.0) 12/12/21 04:25 RDW 13.4 % (11.6-16.5) 12/12/21 04:25 Plt Count 416 X10^3/uL (150.0-450.0) 12/12/21 04:25 Plt Count Comment Increased (ADEQUATE) A 12/06/21 10:22 MPV 7.4 fL (7.4-11.0) 12/12/21 04:25 Neut % (Auto) 77.1 % (42.0-75.0) H 12/12/21 04:25 Lymph % (Auto) 11.5 % (21.0-51.0) L 12/12/21 04:25 [place] % (Auto) 9.1 % (0.0-13.0) 12/12/21 04:25 Eos % (Auto) 1.3 % (0.9-2.9) 12/12/21 04:25 Baso % (Auto) 1.0 % (0.2-1.0) 12/12/21 04:25 Neut # (Auto) 5.6 x10^3/uL (2.2-4.8) H 12/12/21 04:25 Lymph # (Auto) 0.8 X10^3/uL (1.3-2.9) L 12/12/21 04:25 [place] # (Auto) 0.7 x10^3/uL (0.3-0.8) 12/12/21 04:25 Eos # (Auto) 0.1 x10^3/uL (0.0-0.2) 12/12/21 04:25 Baso # (Auto) 0.1 X10^3/uL (0.0-0.1) 12/12/21 04:25 Absolute Nucleated RBC 0.1 /100WBC 12/12/21 04:25 Total Counted 100 12/06/21 10:22 Neutrophils % (Manual) 98 % (39-76) H 12/06/21 10:22 Band Neutrophils % 1 % (0-10) 12/06/21 10:22 Lymphocytes % (Manual) 1 % (13-43) L 12/06/21 10:22 Plt Morphology Comment Normal (NORMAL) 12/06/21 10:22 RBC Morphology Normal (NORMAL) 12/06/21 10:22 PT 16.4 SECONDS (11.8-14.3) 12/06/21 10:22 INR Target Range - 12/06/21 10: INR 1.39 (0.8-1.3) H 12/06/21 10:22 Sodium 138 mmol/L (136-145) 12/12/21 04:25 Corrected Sodium 139 mmol/L (136-145) 12/12/21 04:25 Potassium 2.9 mmol/L (3.5-5.1) L* 12/12/21 04:25 Chloride 102 mmol/L (98-107) 12/12/21 04:25 Carbon Dioxide 27.7 mmol/L (21-32) 12/12/21 04:25 BUN 7 mg/dL (7-18) 12/12/21 04:25 Creatinine 0.55 mg/dL (0.55-1.02) 12/12/21 04:25 Est GFR (MDRD) Af Amer > 60 (>60) 12/12/21 04:25 Est GFR (MDRD) Non-Af > 60 (>60) 12/12/21 04:25 Glucose 137 mg/dL (65-99) H 12/12/21 04:25 POC Glucose (mg/dL) 134 mg/dL (65-99) H 12/12/21 03:21 Calcium 7.9 mg/dL (8.5-10.1) L 12/12/21 04:25 Corrected Calcium 8.9 mg/dL (8.5-10.1) 12/12/21 04:25 Phosphorus 4.2 mg/dL (2.6-4.7) 12/12/21 04:25 Magnesium 2.1 mg/dL (1.7-2.9) 12/12/21 04:25 Iron 16 ug/dL (50-175) L 12/08/21 14:21 TIBC 205 ug/dL (250-450) L 12/08/21 14:21 % Saturation 7.8 % (11.0-46.0) L 12/08/21 14:21 Ferritin 155 ng/mL (8-252) 12/08/21 14:21 Total Bilirubin 0.70 mg/dL (0.2-1.0) 12/12/21 04:25 AST 71 Units/L (15-37) H 12/12/21 04:25 ALT 74 Units/L (12-78) 12/12/21 04:25 Alkaline Phosphatase 95 Units/L (46-116) 12/12/21 04:25 Total Protein 6.1 g/dL (6.4-8.2) L 12/12/21 04:25 Albumin 2.8 g/dL (3.4-5.0) L 12/12/21 04:25 Globulin 3.3 g/dL (2.5-4.5) 12/12/21 04:25 Albumin/Globulin Ratio 0.8 Ratio (1.1-2.1) L 12/12/21 04:25 Prealbumin 15.2 mg/dL (18-35.7) L 12/12/21 04:25 Triglycerides 79 mg/dL (0-150) 12/12/21 04:25 Amylase 135 Units/L (25-115) H 12/10/21 04:55 Lipase 793 Units/L (73-393) H 12/10/21 04:55 TSH 3rd Generation 1.311 uIU/mL (0.358-3.74) 12/03/21 18:47 HCG, Qual Negative <10 mIU/mL 12/04/21 04:39 SARS CoV-2 RNA Rapid MACK Negative (NEGATIVE) 12/03/21 20:49 Tissue Pathology To follow 12/06/21 08:27 - Assessment and Plan 1: post op lap [place] . gastroparesis r.o obstruction of the UGI tract ... mesenteric hematoma of unknown etiology . pulmonary infiltrates. HTN. to keep NGT clamped on and off. for UGI study with Gastrografin .. K supplements ..same TPN .. , same ABT , Reglan , Protonix ... OOB and po care . . - Problem Patient Problems: Patient Problems Acute hypotension (Acute) I95.9 Hypokalemia (Acute) E87.6 Hypokalemia (Acute) E87.6 Abdominal pain (Acute) R10.9 Acute epigastric pain (Acute) R10.13 Anemia (Acute) D64.9 Hypertensive urgency (Acute) I16.0 Gastritis (Acute) K29.70 Nausea & vomiting (Acute) R11.2 Abnormal LFTs (Acute) R79.89 Cholecystitis (Acute) K81.9 Pneumonia (Acute) J18.9
--- NOTE | 2021-12-12 13:54 | RAD ---
PROCEDURE: Small-bowel follow-through.HISTORY: Epigastric pain. 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 Cecum, right colon, and proximal transverse colon is visualized on the 1 hour film.IMPRESSION:1. Possible partial obstruction of the stomach and duodenum with distention with oral contrast on the exam and visualized on CT abdomen pelvis from 12/08/2021. Endoscopy recommended for further evaluation of the 3rd portion of the duodenum which is narrowed on the CT2. Remainder a small bowel is normal size with normal transit to the right colon at 1 hour.Electronically signed by: Bill Schaffer (Dec 12, 2021 13:53:30)
[2021-12-12 16:09] LABS: HEPATITIS B SURFACE ANTIGEN Negative (Negative)
[2021-12-13] MEDS: ZOFRAN INJ 4 MG VIAL IVP PRN ×2 (03:20→19:42)
[2021-12-13] MEDS: DEMEROL INJ IVP PRN ×6 (03:20→23:31)
[2021-12-13] MEDS: D5 1/2 NS 1,000 ML 1,000 ML IV SCH ×3 (04:48→19:42)
[2021-12-13] MEDS: REGLAN INJ 10 MG VIAL IVP SCH ×4 (04:49→23:28)
[2021-12-13 05:01] LABS: BASOPHILS # (AUTO) 0.1 X10^3/uL (0.0-0.1); BASOPHILS % (AUTO) 1.2 % (0.2-1.0); EOSINOPHILS # (AUTO) 0.2 x10^3/uL (0.0-0.2); EOSINOPHILS % (AUTO) 2.5 % (0.9-2.9); HEMATOCRIT 30.2 % (36.0-47.0); HEMOGLOBIN 10.4 g/dL (12.0-16.0); LYMPHOCYTES # (AUTO) 1.4 X10^3/uL (1.3-2.9); LYMPHOCYTES % (AUTO) 18.6 % (21.0-51.0); MEAN CORPUSCULAR HEMOGLOBIN 31.6 pg (27.0-34.0); MEAN CORPUSCULAR HGB CONC 34.5 g/dL (33.0-35.0); MEAN CORPUSCULAR VOLUME 91.4 fL (80.0-100.0); MEAN PLATELET VOLUME 7.6 fL (7.4-11.0); MONOCYTES # (AUTO) 0.8 x10^3/uL (0.3-0.8); MONOCYTES % (AUTO) 11.3 % (0.0-13.0); NEUTROPHILS # (AUTO) 4.8 x10^3/uL (2.2-4.8); NEUTROPHILS % (AUTO) 66.4 % (42.0-75.0); RED BLOOD COUNT 3.31 X10^6/uL (3.5-5.4); RED CELL DISTRIBUTION WIDTH 13.5 % (11.6-16.5); WHITE BLOOD COUNT 7.3 X10^3/uL (3.6-10.0)
[2021-12-13 05:09] LABS: ALANINE AMINOTRANSFERASE 87 Units/L (12-78); ALBUMIN 2.9 g/dL (3.4-5.0); ALKALINE PHOSPHATASE 110 Units/L (46-116); ASPARTATE AMINO TRANSFERASE 56 Units/L (15-37); BLOOD UREA NITROGEN 8 mg/dL (7-18); CALCIUM 8.3 mg/dL (8.5-10.1); CARBON DIOXIDE 24.4 mmol/L (21-32); COR CA(FOR HYPOALB) 9.2 mg/dL (8.5-10.1); CREATININE 0.66 mg/dL (0.55-1.02); SODIUM 138 mmol/L (136-145); TOTAL PROTEIN 6.3 g/dL (6.4-8.2); eGFR NON BLACK RACES > 60 (>60)
[2021-12-13] MEDS: ZOSYN VIAL 3.375 GRAMS 3.375 G in NS 100 ML IV 100 ML IV SCH ×3 (05:15→21:10)
[2021-12-13 05:20] LABS: CHLORIDE 103 mmol/L (98-107)
[2021-12-13 06:33] LABS: ANTI-NUCLEAR ANTIBODY TEST None Detected (None Detected)
[2021-12-13] MEDS: K-RIDER 10 MEQ/NS 100 ML 10 MEQ/100 ML BAG IV PRN (06:43)
[2021-12-13] MEDS: CLINIMIX 4.25 %/10 % 1,000 ML with MVI INJ (ADULT) 10 ML, POTASSIUM CHLORIDE INJ 20 MEQ... IV SCH ×6 (08:24→18:25)
--- NOTE | 2021-12-13 08:52 | DR.PROGNOT ---
Hospital Progress Notes - Progress Note for Day of: Progress Note Date: 12/13/21 - Chief Complaint Chief Complaint: mild improvement . tolerated clamping NGT over night .. having on and off crampy abdominal pain . BP is controlled .. had soft BM after UGI .. afebrile . - Past Medical Family Social History Past Med/Fam/Surg Hx: No changes since H&P Allergies: Allergies No Known Drug Allergies Allergy (Verified 11/23/21 10:01) - Review Of Systems ROS: No change since H&P - Vital Signs Vital Signs: Temperature 98.5 F Pulse Rate 102 Respiratory Rate 18 Blood Pressure [Left Arm] 147/78 Blood Pressure 101/71 O2 Sat by Pulse Oximetry 97 - Physical Exam Oriented: Normal, Time, Person, Place Eyes: Normal Ear: Normal Nose: Normal Throat: Normal Respiratory: Normal Cardiovascular: Normal : Normal GI:Auscultation: Normal GI:Palpation: Normal, Other (soft abdomen with moderate diffuse tenderness .. BS+) GI: Tenderness: Diffuse (soft, flat abdomen with good bowel sounds ..), Moderate Skin: Decreased Turgur Musculoskeletal: Normal Psychiatric: Normal Mood Description: Calm Affect: Normal Speech Pattern: Clear, Appropriate - Laboratory and Diagnostics Result Diagrams: 12/13/21 04:18 12/13/21 04:18 Labs: 12/05/21 17:42 Blood Blood Culture - Final 12/05/21 17:32 Blood Blood Culture - Final Laboratory WBC 7.3 X10^3/uL (3.6-10.0) 12/13/21 04:18 RBC 3.31 X10^6/uL (3.5-5.4) L 12/13/21 04:18 Hgb 10.4 g/dL (12.0-16.0) L 12/13/21 04:18 Hct 30.2 % (36.0-47.0) L 12/13/21 04:18 MCV 91.4 fL (80.0-100.0) 12/13/21 04:18 MCH 31.6 pg (27.0-34.0) 12/13/21 04:18 MCHC 34.5 g/dL (33.0-35.0) 12/13/21 04:18 RDW 13.5 % (11.6-16.5) 12/13/21 04:18 Plt Count 400 X10^3/uL (150.0-450.0) 12/13/21 04:18 Plt Count Comment Increased (ADEQUATE) A 12/06/21 10:22 MPV 7.6 fL (7.4-11.0) 12/13/21 04:18 Neut % (Auto) 66.4 % (42.0-75.0) 12/13/21 04:18 Lymph % (Auto) 18.6 % (21.0-51.0) L 12/13/21 04:18 [place] % (Auto) 11.3 % (0.0-13.0) 12/13/21 04:18 Eos % (Auto) 2.5 % (0.9-2.9) 12/13/21 04:18 Baso % (Auto) 1.2 % (0.2-1.0) H 12/13/21 04:18 Neut # (Auto) 4.8 x10^3/uL (2.2-4.8) 12/13/21 04:18 Lymph # (Auto) 1.4 X10^3/uL (1.3-2.9) 12/13/21 04:18 [place] # (Auto) 0.8 x10^3/uL (0.3-0.8) 12/13/21 04:18 Eos # (Auto) 0.2 x10^3/uL (0.0-0.2) 12/13/21 04:18 Baso # (Auto) 0.1 X10^3/uL (0.0-0.1) 12/13/21 04:18 Absolute Nucleated RBC 0.1 /100WBC 12/13/21 04:18 Total Counted 100 12/06/21 10:22 Neutrophils % (Manual) 98 % (39-76) H 12/06/21 10:22 Band Neutrophils % 1 % (0-10) 12/06/21 10:22 Lymphocytes % (Manual) 1 % (13-43) L 12/06/21 10:22 Plt Morphology Comment Normal (NORMAL) 12/06/21 10:22 RBC Morphology Normal (NORMAL) 12/06/21 10:22 PT 16.4 SECONDS (11.8-14.3) 12/06/21 10:22 INR Target Range - 12/06/21 10:22 INR 1.39 (0.8-1.3) H 12/06/21 10:22 Sodium 138 mmol/L (136-145) 12/13/21 04:18 Corrected Sodium TNP 12/13/21 04:18 Potassium 3.1 mmol/L (3.5-5.1) L 12/13/21 04:18 Chloride 103 mmol/L (98-107) 12/13/21 04:18 Carbon Dioxide 24.4 mmol/L (21-32) 12/13/21 04:18 BUN 8 mg/dL (7-18) 12/13/21 04:18 Creatinine 0.66 mg/dL (0.55-1.02) 12/13/21 04:18 Est GFR (MDRD) Af Amer > 60 (>60) 12/13/21 04:18 Est GFR (MDRD) Non-Af > 60 (>60) 12/13/21 04:18 Glucose 99 mg/dL (65-99) 12/13/21 04:18 POC Glucose (mg/dL) 92 mg/dL (65-99) 12/13/21 03:49 Calcium 8.3 mg/dL (8.5-10.1) L 12/13/21 04:18 Corrected Calcium 9.2 mg/dL (8.5-10.1) 12/13/21 04:18 Phosphorus 4.2 mg/dL (2.6-4.7) 12/12/21 04:25 Magnesium 2.1 mg/dL (1.7-2.9) 12/12/21 04:25 Iron 16 ug/dL (50-175) L 12/08/21 14:21 TIBC 205 ug/dL (250-450) L 12/08/21 14:21 % Saturation 7.8 % (11.0-46.0) L 12/08/21 14:21 Ferritin 155 ng/mL (8-252) 12/08/21 14:21 Total Bilirubin 0.70 mg/dL (0.2-1.0) 12/13/21 04:18 AST 56 Units/L (15-37) H 12/13/21 04:18 ALT 87 Units/L (12-78) H 12/13/21 04:18 Alkaline Phosphatase 110 Units/L (46-116) 12/13/21 04:18 Total Protein 6.3 g/dL (6.4-8.2) L 12/13/21 04:18 Albumin 2.9 g/dL (3.4-5.0) L 12/13/21 04:18 Globulin 3.4 g/dL (2.5-4.5) 12/13/21 04:18 Albumin/Globulin Ratio 0.9 Ratio (1.1-2.1) L 12/13/21 04:18 Prealbumin 15.2 mg/dL (18-35.7) L 12/12/21 04:25 Triglycerides 79 mg/dL (0-150) 12/12/21 04:25 Amylase 135 Units/L (25-115) H 12/10/21 04:55 Lipase 793 Units/L (73-393) H 12/10/21 04:55 TSH 3rd Generation 1.311 uIU/mL (0.358-3.74) 12/03/21 18:47 HCG, Qual Negative <10 mIU/mL 12/04/21 04:39 ALLAN Screen None detected (None Detected) 12/08/21 14:21 ALLAN Titer TNP 12/08/21 14:21 ALLAN Pattern TNP 12/08/21 14:21 Anti-Mitochondrial Ab 3.6 Units (0.0-24.9) 12/08/21 14:21 Smooth Muscle Ab Titer 1:20 (<1:20) H 12/08/21 14:21 Hepatitis A IgM Ab Negative (Negative) 12/08/21 14:21 Hep Bs Antigen Negative (Negative) 12/08/21 14:21 Hep Bs Ag Confirmation TNP 12/08/21 14:21 Hep B Core IgM Ab Negative (Negative) 12/08/21 14:21 Hepatitis C Ab Index 0.12 IV 12/08/21 14:21 Hepatitis C Interp Negative (Negative) 12/08/21 14:21 Hepatitis Interpret See note 12/08/21 14:21 SARS CoV-2 RNA Rapid MACK Negative (NEGATIVE) 12/03/21 20:49 Tissue Pathology To follow 12/06/21 08:27 - Assessment and Plan 1: . improving 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 pulmonary infiltrates . s/p lap [place]. HTN. to keep NGT clamped on and off. .. K supplements ..same TPN .. , same ABT , Reglan , Protonix ... OOB and po care . full liquid diet . . - Problem Patient Problems: Patient Problems Acute hypotension (Acute) I95.9 Hypokalemia (Acute) E87.6 Hypokalemia (Acute) E87.6 Abdominal pain (Acute) R10.9 Acute epigastric pain (Acute) R10.13 Anemia (Acute) D64.9 Hypertensive urgency (Acute) I16.0 Gastritis (Acute) K29.70 Nausea & vomiting (Acute) R11.2 Abnormal LFTs (Acute) R79.89 Cholecystitis (Acute) K81.9 Pneumonia (Acute) J18.9
[2021-12-13] MEDS: PROTONIX INJ 40 MG VIAL IVP SCH ×2 (08:53→20:14)
[2021-12-13] MEDS: LOVENOX INJ 40 MG SYR SC SCH (08:54)
[2021-12-13] MEDS: SYNTHROID INJ 100 mcg VIAL IM SCH (08:54)
[2021-12-13] MEDS: ATIVAN INJ 2 MG VIAL IVP PRN ×2 (09:56→20:20)
[2021-12-13] MEDS ORDERED: PHENERGAN INJ 25 MG IM ONE ×2 (11:42→23:17)
[2021-12-13] MEDS: PHENERGAN INJ 25 MG IM PRN ×2 (11:53→23:31)
[2021-12-13] MEDS: LIPOSYN III 20% 100ML 100 ML IV SCH (20:15)
[2021-12-14] MEDS: ATIVAN INJ 2 MG VIAL IVP PRN ×3 (01:54→20:45)
[2021-12-14] MEDS: D5 1/2 NS 1,000 ML 1,000 ML IV SCH ×3 (03:22→22:31)
[2021-12-14] MEDS: DEMEROL INJ IVP PRN ×5 (03:57→20:09)
[2021-12-14] MEDS: ZOFRAN INJ 4 MG VIAL IVP PRN ×3 (03:58→20:10)
[2021-12-14] MEDS: REGLAN INJ 10 MG VIAL IVP SCH ×4 (04:19→23:28)
[2021-12-14 05:30] LABS: ALANINE AMINOTRANSFERASE 81 Units/L (12-78); ALKALINE PHOSPHATASE 126 Units/L (46-116); ASPARTATE AMINO TRANSFERASE 51 Units/L (15-37); BLOOD UREA NITROGEN 11 mg/dL (7-18); CALCIUM 8.3 mg/dL (8.5-10.1); CARBON DIOXIDE 26.7 mmol/L (21-32); CHLORIDE 104 mmol/L (98-107); COR CA(FOR HYPOALB) 9.1 mg/dL (8.5-10.1); CREATININE 0.54 mg/dL (0.55-1.02); SODIUM 139 mmol/L (136-145); TOTAL PROTEIN 6.5 g/dL (6.4-8.2); eGFR NON BLACK RACES > 60 (>60)
[2021-12-14] MEDS: ZOSYN VIAL 3.375 GRAMS 3.375 G in NS 100 ML IV 100 ML IV SCH ×3 (06:08→21:00)
[2021-12-14] MEDS: SYNTHROID INJ 100 mcg VIAL IM SCH (09:15)
[2021-12-14] MEDS: PROTONIX INJ 40 MG VIAL IVP SCH ×2 (09:15→21:00)
[2021-12-14] MEDS ORDERED: CLINIMIX 4.25 %/10 % 1,000 ML with MVI INJ (ADULT) 10 ML, POTASSIUM CHLORIDE INJ 20 MEQ... IV SCH ×3 (10:00)
[2021-12-14] MEDS: LOVENOX INJ 40 MG SYR SC SCH (10:16)
--- NOTE | 2021-12-14 10:53 | DR.PROGNOT ---
Hospital Progress Notes - Progress Note for Day of: Progress Note Date: 12/14/21 - Chief Complaint Chief Complaint: no significant changes with pain and nausea after clamping NGT .. BP is controlled .. renal function , LFT are normal .. normal lytes . afebrile . - Past Medical Family Social History Past Med/Fam/Surg Hx: No changes since H&P Allergies: Allergies No Known Drug Allergies Allergy (Verified 11/23/21 10:01) - Review Of Systems ROS: No change since H&P - Vital Signs Vital Signs: Temperature 98.0 F Pulse Rate 92 Respiratory Rate 21 Blood Pressure [Left Arm] 147/78 Blood Pressure 119/79 O2 Sat by Pulse Oximetry 97 - Physical Exam Oriented: Normal, Time, Person, Place Eyes: Normal Ear: Normal Nose: Normal Throat: Normal Respiratory: Normal Cardiovascular: Normal : Normal GI:Auscultation: Normal GI:Palpation: Normal, Other (soft abdomen with moderate diffuse tenderness .. BS+) GI: Tenderness: Diffuse (soft, flat abdomen with good bowel sounds .clean incosions ..), Moderate Skin: Decreased Turgur Musculoskeletal: Normal Psychiatric: Normal Mood Description: Calm Affect: Normal Speech Pattern: Clear, Appropriate - Laboratory and Diagnostics Result Diagrams: 12/13/21 04:18 12/14/21 04:35 Labs: 12/05/21 17:42 Blood Blood Culture - Final 12/05/21 17:32 Blood Blood Culture - Final Laboratory WBC 7.3 X10^3/uL (3.6-10.0) 12/13/21 04:18 RBC 3.31 X10^6/uL (3.5-5.4) L 12/13/21 04:18 Hgb 10.4 g/dL (12.0-16.0) L 12/13/21 04:18 Hct 30.2 % (36.0-47.0) L 12/13/21 04:18 MCV 91.4 fL (80.0-100.0) 12/13/21 04:18 MCH 31.6 pg (27.0-34.0) 12/13/21 04:18 MCHC 34.5 g/dL (33.0-35.0) 12/13/21 04:18 RDW 13.5 % (11.6-16.5) 12/13/21 04:18 Plt Count 400 X10^3/uL (150.0-450.0) 12/13/21 04:18 Plt Count Comment Increased (ADEQUATE) A 12/06/21 10:22 MPV 7.6 fL (7.4-11.0) 12/13/21 04:18 Neut % (Auto) 66.4 % (42.0-75.0) 12/13/21 04:18 Lymph % (Auto) 18.6 % (21.0-51.0) L 12/13/21 04:18 [place] % (Auto) 11.3 % (0.0-13.0) 12/13/21 04:18 Eos % (Auto) 2.5 % (0.9-2.9) 12/13/21 04:18 Baso % (Auto) 1.2 % (0.2-1.0) H 12/13/21 04:18 Neut # (Auto) 4.8 x10^3/uL (2.2-4.8) 12/13/21 04:18 Lymph # (Auto) 1.4 X10^3/uL (1.3-2.9) 12/13/21 04:18 [place] # (Auto) 0.8 x10^3/uL (0.3-0.8) 12/13/21 04:18 Eos # (Auto) 0.2 x10^3/uL (0.0-0.2) 12/13/21 04:18 Baso # (Auto) 0.1 X10^3/uL (0.0-0.1) 12/13/21 04:18 Absolute Nucleated RBC 0.1 /100WBC 12/13/21 04:18 Total Counted 100 12/06/21 10:22 Neutrophils % (Manual) 98 % (39-76) H 12/06/21 10:22 Band Neutrophils % 1 % (0-10) 12/06/21 10:22 Lymphocytes % (Manual) 1 % (13-43) L 12/06/21 10:22 Plt Morphology Comment Normal (NORMAL) 12/06/21 10:22 RBC Morphology Normal (NORMAL) 12/06/21 10:22 PT 16.4 SECONDS (11.8-14.3) 12/06/21 10:22 INR Target Range - 12/06/21 10:22 INR 1.39 (0.8-1.3) H 12/06/21 10:22 Sodium 139 mmol/L (136-145) 12/14/21 04:35 Corrected Sodium TNP 12/14/21 04:35 Potassium 3.9 mmol/L (3.5-5.1) 12/14/21 04:35 Chloride 104 mmol/L (98-107) 12/14/21 04:35 Carbon Dioxide 26.7 mmol/L (21-32) 12/14/21 04:35 BUN 11 mg/dL (7-18) 12/14/21 04:35 Creatinine 0.54 mg/dL (0.55-1.02) L 12/14/21 04:35 Est GFR (MDRD) Af Amer > 60 (>60) 12/14/21 04:35 Est GFR (MDRD) Non-Af > 60 (>60) 12/14/21 04:35 Glucose 88 mg/dL (65-99) 12/14/21 04:35 POC Glucose (mg/dL) 104 mg/dL (65-99) H 12/14/21 04:05 Calcium 8.3 mg/dL (8.5-10.1) L 12/14/21 04:35 Corrected Calcium 9.1 mg/dL (8.5-10.1) 12/14/21 04:35 Phosphorus 4.2 mg/dL (2.6-4.7) 12/12/21 04:25 Magnesium 2.1 mg/dL (1.7-2.9) 12/12/21 04:25 Iron 16 ug/dL (50-175) L 12/08/21 14:21 TIBC 205 ug/dL (250-450) L 12/08/21 14:21 % Saturation 7.8 % (11.0-46.0) L 12/08/21 14:21 Ferritin 155 ng/mL (8-252) 12/08/21 14:21 Total Bilirubin 0.60 mg/dL (0.2-1.0) 12/14/21 04:35 AST 51 Units/L (15-37) H 12/14/21 04:35 ALT 81 Units/L (12-78) H 12/14/21 04:35 Alkaline Phosphatase 126 Units/L (46-116) H 12/14/21 04:35 Total Protein 6.5 g/dL (6.4-8.2) 12/14/21 04:35 Albumin 3.0 g/dL (3.4-5.0) L 12/14/21 04:35 Globulin 3.5 g/dL (2.5-4.5) 12/14/21 04:35 Albumin/Globulin Ratio 0.9 Ratio (1.1-2.1) L 12/14/21 04:35 Prealbumin 15.2 mg/dL (18-35.7) L 12/12/21 04:25 [id number] 237 mg/dL (90-200) H 12/08/21 14:21 Ceruloplasmin 30 mg/dL (16-45) 12/08/21 14:21 Triglycerides 79 mg/dL (0-150) 12/12/21 04:25 Amylase 135 Units/L (25-115) H 12/10/21 04:55 Lipase 793 Units/L (73-393) H 12/10/21 04:55 Carcinoembryonic Ag 1.4 ng/mL (<=3.8) 12/09/21 14:36 CA 19-9 Antigen 13 U/mL (<=35) 12/09/21 14:36 TSH 3rd Generation 1.311 uIU/mL (0.358-3.74) 12/03/21 18:47 HCG, Qual Negative <10 mIU/mL 12/04/21 04:39 ALLAN Screen None detected (None Detected) 12/08/21 14:21 ALLAN Titer TNP 12/08/21 14:21 ALLAN Pattern TNP 12/08/21 14:21 Anti-Mitochondrial Ab 3.6 Units (0.0-24.9) 12/08/21 14:21 Smooth Muscle Ab Titer 1:20 (<1:20) H 12/08/21 14:21 Hepatitis A IgM Ab Negative (Negative) 12/08/21 14:21 Hep Bs Antigen Negative (Negative) 12/08/21 14:21 Hep Bs Ag Confirmation TNP 12/08/21 14:21 Hep B Core IgM Ab Negative (Negative) 12/08/21 14:21 Hepatitis C Ab Index 0.12 IV 12/08/21 14:21 Hepatitis C Interp Negative (Negative) 12/08/21 14:21 Hepatitis Interpret See note 12/08/21 14:21 SARS CoV-2 RNA Rapid MACK Negative (NEGATIVE) 12/03/21 20:49 Tissue Pathology To follow 12/06/21 08:27 - Assessment and Plan 1: . 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 pulmonary infiltrates . s/p lap [place]. HTN. to keep NGT clamped on and off. .. K supplements ..same TPN .. , same ABT , Reglan , Protonix ... OOB and po care . full liquid diet . .for EGD in AM by Dr Lin . - Problem Patient Problems: Patient Problems Acute hypotension (Acute) I95.9 Hypokalemia (Acute) E87.6 Hypokalemia (Acute) E87.6 Abdominal pain (Acute) R10.9 Acute epigastric pain (Acute) R10.13 Anemia (Acute) D64.9 Hypertensive urgency (Acute) I16.0 Gastritis (Acute) K29.70 Nausea & vomiting (Acute) R11.2 Abnormal LFTs (Acute) R79.89 Cholecystitis (Acute) K81.9 Pneumonia (Acute) J18.9
--- NOTE | 2021-12-14 13:19 | RAD ---
HISTORYNausea, vomitingSTUDYAcute abdominal seriesCOMPARISONNoneFINDINGSThere is a nasogastric tube with its tip and side hole within the stomach. Heart size is normal. Franchesca are normal. Lung griffin are clear. There is a left-sided PICC line in good position. The abdominal gas pattern is nonspecific and nonobstructive. No pneumoperitoneum is identified. No abnormal masses or abnormal calcifications are identified. Contrast is identified within the colon. Multiple surgical clips and rachel are identified.IMPRESSIONLungs clearUnremarkable abdomenElectronically signed by: LOY HARMON (Dec 14, 2021 13:17:44)
[2021-12-14] MEDS: CLINIMIX 4.25 %/10 % 1,000 ML with MVI INJ (ADULT) 10 ML, POTASSIUM CHLORIDE INJ 20 MEQ... IV SCH ×3 (16:13)
[2021-12-14] MEDS: LIPOSYN III 20% 100ML 100 ML IV SCH (21:00)
[2021-12-15] MEDS: ZOFRAN INJ 4 MG VIAL IVP PRN ×3 (00:10→21:00)
[2021-12-15] MEDS: DEMEROL INJ IVP PRN ×6 (00:11→20:50)
[2021-12-15] MEDS: CLINIMIX 4.25 %/10 % 1,000 ML with MVI INJ (ADULT) 10 ML, POTASSIUM CHLORIDE INJ 20 MEQ... IV SCH ×11 (00:13→21:00)
[2021-12-15] MEDS: D5 1/2 NS 1,000 ML 1,000 ML IV SCH ×4 (00:13→18:21)
[2021-12-15] MEDS: ATIVAN INJ 2 MG VIAL IVP PRN ×3 (04:13→19:40)
[2021-12-15 04:55] LABS: BASOPHILS # (AUTO) 0.1 X10^3/uL (0.0-0.1); BASOPHILS % (AUTO) 1.2 % (0.2-1.0); EOSINOPHILS # (AUTO) 0.1 x10^3/uL (0.0-0.2); EOSINOPHILS % (AUTO) 1.9 % (0.9-2.9); HEMATOCRIT 30.9 % (36.0-47.0); HEMOGLOBIN 10.6 g/dL (12.0-16.0); LYMPHOCYTES # (AUTO) 1.3 X10^3/uL (1.3-2.9); LYMPHOCYTES % (AUTO) 15.9 % (21.0-51.0); MEAN CORPUSCULAR HEMOGLOBIN 31.2 pg (27.0-34.0); MEAN CORPUSCULAR HGB CONC 34.4 g/dL (33.0-35.0); MEAN CORPUSCULAR VOLUME 90.5 fL (80.0-100.0); MEAN PLATELET VOLUME 7.6 fL (7.4-11.0); MONOCYTES # (AUTO) 0.9 x10^3/uL (0.3-0.8); NEUTROPHILS # (AUTO) 5.5 x10^3/uL (2.2-4.8); RED BLOOD COUNT 3.41 X10^6/uL (3.5-5.4); RED CELL DISTRIBUTION WIDTH 13.4 % (11.6-16.5); WHITE BLOOD COUNT 7.9 X10^3/uL (3.6-10.0)
[2021-12-15 05:03] LABS: BLOOD UREA NITROGEN 11 mg/dL (7-18); CALCIUM 8.4 mg/dL (8.5-10.1); CARBON DIOXIDE 25.7 mmol/L (21-32); CHLORIDE 102 mmol/L (98-107); CREATININE 0.54 mg/dL (0.55-1.02); MAGNESIUM 1.6 mg/dL (1.7-2.9); PHOSPHORUS 3.5 mg/dL (2.6-4.7); SODIUM 137 mmol/L (136-145); TRIGLYCERIDES 86 mg/dL (0-150); eGFR NON BLACK RACES > 60 (>60)
[2021-12-15] MEDS: REGLAN INJ 10 MG VIAL IVP SCH ×4 (07:17→23:42)
[2021-12-15] MEDS: ZOSYN VIAL 3.375 GRAMS 3.375 G in NS 100 ML IV 100 ML IV SCH ×3 (07:17→21:15)
[2021-12-15 08:03] LABS: AMYLASE 105 Units/L (25-115); LIPASE 394 Units/L (73-393)
[2021-12-15] MEDS: PROTONIX INJ 40 MG VIAL IVP SCH ×2 (08:10→20:03)
[2021-12-15] MEDS: LOVENOX INJ 40 MG SYR SC SCH (08:10)
[2021-12-15] MEDS: SYNTHROID INJ 100 mcg VIAL IM SCH (08:10)
[2021-12-15] MEDS: MAGNESIUM SULFATE 1 GRAM/100 mL PREMIX 1 G/100 ML BAG IV PRN ×2 (08:11→09:27)
[2021-12-15] MEDS ORDERED: D5 LR 1,000 ML 1,000 ML IV ONE (13:23)
[2021-12-15] MEDS ORDERED: DIPRIVAN VIAL 0 ML ONE (14:07)
[2021-12-15] MEDS ORDERED: DIPRIVAN VIAL 20 ML ONE ×2 (14:08→14:34)
[2021-12-15] MEDS ORDERED: STERILE WATER IRRIGATION IR ONE (15:08)
--- NOTE | 2021-12-15 20:10 | PCM.PROG ---
Progress Note - Progress Note for Day of Date of Exam: 12/12/21 - Subjective Subjective: Patient is a 46 yo female who was admitted as per HPI. She is status post lap verona. Patient continues to experience nausea. Patient continues to have NGT. Patient has had multiple trials of clamping NGT to see if she could tolerate liquids however this has been unsuccessful. Patient continues to have large amount of return when NGT attached to suction. Patient continues to be followed by general surger. Patient is receiving TPN. She is currently receiving IVF, antiemetics, and IV demerol prn for pain. Antibiotics: IV Zosyn. Will follow up on Surgery's recommendation and plan. Otherwise will continue with current treatment plan. Continue to monitor and follow up labs/imaging in the mo rning. - Past Medical Family Social History Past Med/Fam/Surg Hx: No changes since H&P Allergies: Allergies No Known Drug Allergies Allergy (Verified 11/23/21 10:01) - Review of Systems ROS: No change since H&P - Vital Signs and I&O's Vital Signs: Temperature 97.8 F Pulse Rate 101 Respiratory Rate 29 Blood Pressure [Left Arm] 147/78 Blood Pressure 123/84 O2 Sat by Pulse Oximetry 98 Intake and Output: Intake & Output 12/12/21 12/13/21 12/14/21 12/15/21 23:59 23:59 23:59 23:59 Intake Total 4921 / 4921 3822 / 3822 4185 / 4185 2710 / 2710 Output Total 3500 / 3500 2900 / 2900 1999 / 1999 600 / 600 Balance 1421 / 1421 922 / 922 2185 / 2185 2110 / 2110 - Physical Exam Oriented: Normal, Time, Person, Place Eyes: Normal Ear: Normal Nose: Normal Throat: Normal Respiratory: Normal Cardiovascular: Normal : Normal Auscultation: Bowel Sounds: Normal Palpation: Normal Tenderness: Diffuse (soft, flat abdomen with good bowel sounds .clean incosions ..), Moderate Skin: Decreased Turgur Musculoskeletal: Normal Psychiatric: Normal Mood Description: Calm Affect: Normal Speech Pattern: Clear, Appropriate - Laboratory and Diagnostics Result Diagrams: 12/15/21 04:28 12/15/21 04:28 Labs: 12/05/21 17:42 Blood Blood Culture - Final 12/05/21 17:32 Blood Blood Culture - Final Laboratory WBC 7.9 X10^3/uL (3.6-10.0) 12/15/21 04:28 RBC 3.41 X10^6/uL (3.5-5.4) L 12/15/21 04:28 Hgb 10.6 g/dL (12.0-16.0) L 12/15/21 04:28 Hct 30.9 % (36.0-47.0) L 12/15/21 04:28 MCV 90.5 fL (80.0-100.0) 12/15/21 04:28 MCH 31.2 pg (27.0-34.0) 12/15/21 04:28 MCHC 34.4 g/dL (33.0-35.0) 12/15/21 04:28 RDW 13.4 % (11.6-16.5) 12/15/21 04:28 Plt Count 346 X10^3/uL (150.0-450.0) 12/15/21 04:28 Plt Count Comment Increased (ADEQUATE) A 12/06/21 10:22 MPV 7.6 fL (7.4-11.0) 12/15/21 04:28 Neut % (Auto) 70.0 % (42.0-75.0) 12/15/21 04:28 Lymph % (Auto) 15.9 % (21.0-51.0) L 12/15/21 04:28 [place] % (Auto) 11.0 % (0.0-13.0) 12/15/21 04:28 Eos % (Auto) 1.9 % (0.9-2.9) 12/15/21 04:28 Baso % (Auto) 1.2 % (0.2-1.0) H 12/15/21 04:28 Neut # (Auto) 5.5 x10^3/uL (2.2-4.8) H 12/15/21 04:28 Lymph # (Auto) 1.3 X10^3/uL (1.3-2.9) 12/15/21 04:28 [place] # (Auto) 0.9 x10^3/uL (0.3-0.8) H 12/15/21 04:28 Eos # (Auto) 0.1 x10^3/uL (0.0-0.2) 12/15/21 04:28 Baso # (Auto) 0.1 X10^3/uL (0.0-0.1) 12/15/21 04:28 Absolute Nucleated RBC 0.1 /100WBC 12/15/21 04:28 Total Counted 100 12/06/21 10:22 Neutrophils % (Manual) 98 % (39-76) H 12/06/21 10:22 Band Neutrophils % 1 % (0-10) 12/06/21 10:22 Lymphocytes % (Manual) 1 % (13-43) L 12/06/21 10:22 Plt Morphology Comment Normal (NORMAL) 12/06/21 10:22 RBC Morphology Normal (NORMAL) 12/06/21 10:22 PT 16.4 SECONDS (11.8-14.3) 12/06/21 10:22 INR Target Range - 12/06/21 10:22 INR 1.39 (0.8-1.3) H 12/06/21 10:22 Sodium 137 mmol/L (136-145) 12/15/21 04:28 Corrected Sodium TNP 12/15/21 04:28 Potassium 3.9 mmol/L (3.5-5.1) 12/15/21 04:28 Chloride 102 mmol/L (98-107) 12/15/21 04:28 Carbon Dioxide 25.7 mmol/L (21-32) 12/15/21 04:28 BUN 11 mg/dL (7-18) 12/15/21 04:28 Creatinine 0.54 mg/dL (0.55-1.02) L 12/15/21 04:28 Est GFR (MDRD) Af Amer > 60 (>60) 12/15/21 04:28 Est GFR (MDRD) Non-Af > 60 (>60) 12/15/21 04:28 Glucose 96 mg/dL (65-99) 12/15/21 04:28 POC Glucose (mg/dL) 108 mg/dL (65-99) H 12/15/21 19:44 Calcium 8.4 mg/dL (8.5-10.1) L 12/15/21 04:28 Corrected Calcium 9.1 mg/dL (8.5-10.1) 12/14/21 04:35 Phosphorus 3.5 mg/dL (2.6-4.7) 12/15/21 04:28 Magnesium 1.6 mg/dL (1.7-2.9) L 12/15/21 04:28 Iron 16 ug/dL (50-175) L 12/08/21 14:21 TIBC 205 ug/dL (250-450) L 12/08/21 14:21 % Saturation 7.8 % (11.0-46.0) L 12/08/21 14:21 Ferritin 155 ng/mL (8-252) 12/08/21 14:21 Total Bilirubin 0.60 mg/dL (0.2-1.0) 12/14/21 04:35 AST 51 Units/L (15-37) H 12/14/21 04:35 ALT 81 Units/L (12-78) H 12/14/21 04:35 Alkaline Phosphatase 126 Units/L (46-116) H 12/14/21 04:35 Total Protein 6.5 g/dL (6.4-8.2) 12/14/21 04:35 Albumin 3.0 g/dL (3.4-5.0) L 12/14/21 04:35 Globulin 3.5 g/dL (2.5-4.5) 12/14/21 04:35 Albumin/Globulin Ratio 0.9 Ratio (1.1-2.1) L 12/14/21 04:35 Prealbumin 15.2 mg/dL (18-35.7) L 12/12/21 04:25 Ahlqn-3-Azseponfkrh 237 mg/dL (90-200) H 12/08/21 14:21 Ceruloplasmin 30 mg/dL (16-45) 12/08/21 14:21 Triglycerides 86 mg/dL (0-150) 12/15/21 04:28 Amylase 105 Units/L (25-115) 12/15/21 04:28 Lipase 394 Units/L (73-393) H 12/15/21 04:28 Carcinoembryonic Ag 1.4 ng/mL (<=3.8) 12/09/21 14:36 CA 19-9 Antigen 13 U/mL (<=35) 12/09/21 14:36 TSH 3rd Generation 1.311 uIU/mL (0.358-3.74) 12/03/21 18:47 HCG, Qual Negative <10 mIU/mL 12/04/21 04:39 ALLAN Screen None detected (None Detected) 12/08/21 14:21 ALLAN Titer TNP 12/08/21 14:21 ALLAN Pattern TNP 12/08/21 14:21 Anti-Mitochondrial Ab 3.6 Units (0.0-24.9) 12/08/21 14:21 Smooth Muscle Ab Titer 1:20 (<1:20) H 12/08/21 14:21 Hepatitis A IgM Ab Negative (Negative) 12/08/21 14:21 Hep Bs Antigen Negative (Negative) 12/08/21 14:21 Hep Bs Ag Confirmation TNP 12/08/21 14:21 Hep B Core IgM Ab Negative (Negative) 12/08/21 14:21 Hepatitis C Ab Index 0.12 IV 12/08/21 14:21 Hepatitis C Interp Negative (Negative) 12/08/21 14:21 Hepatitis Interpret See note 12/08/21 14:21 SARS CoV-2 RNA Rapid MACK Negative (NEGATIVE) 12/03/21 20:49 Tissue Pathology To follow 12/06/21 08:27 - Plan (1) Acute hypotension Status: Resolved Plan: IV fluids (2) Hypokalemia Status: Acute Plan: replace (3) Abdominal pain Status: Acute (4) Anemia Status: Acute (5) Hypertensive urgency Status: Acute (6) Gastritis Status: Acute (7) Nausea & vomiting Status: Acute Plan: I will recommend to continue with IV Protonix. I will recommend to give Reglan 10 mg four times a day. A repeat CT of the abdomen with contrast will be ordered. Cont NG tube with intermittent suctioning. Serological workup for liver diseases will be ordered. The patient will need further workup once she is more stable from a postoperative standpoint for which I have recommended outpatient follow up. Dulcolax Supp (8) Cholecystitis Status: Acute Plan: IV fluids, IV abx, Nausea and pain control. Patient unerwent EGD with Dr. Masters-see report. As per surgery team. NGT LIWS-as per surgery (9) Pneumonia Status: Acute Plan: Improved. IV abx
--- NOTE | 2021-12-15 20:12 | PCM.PROG ---
Progress Note - Progress Note for Day of Date of Exam: 12/14/21 - Subjective Subjective: Patient is a 46 yo female who was admitted as per HPI. She is status post lap verona. Patient continues to experience nausea. Patient continues to have NGT. Patient has had multiple trials of clamping NGT to see if she could tolerate liquids however this has been unsuccessful. Patient continues to have large amount of return when NGT attached to suction. Patient continues to be followed by general surgery. Dr. Lin plans an EGD on . Patient is receiving TPN. She is currently receiving IVF, antiemetics, and IV demerol prn for pain. Antibiotics: IV Zosyn. Will follow up on Surgery's recommendation and plan. Otherwise will continue with current treatment plan. Continue to monitor and follow up labs/imaging in the morning. Pending gastro and surgery recommendations. - Past Medical Family Social History Past Med/Fam/Surg Hx: No changes since H&P Allergies: Allergies No Known Drug Allergies Allergy (Verified 11/23/21 10:01) - Review of Systems ROS: No change since H&P - Vital Signs and I&O's Vital Signs: Temperature 97.8 F Pulse Rate 120 Respiratory Rate 29 Blood Pressure [Left Arm] 147/78 Blood Pressure 147/97 O2 Sat by Pulse Oximetry 97 Intake and Output: Intake & Output 12/12/21 12/13/21 12/14/21 12/15/21 23:59 23:59 23:59 23:59 Intake Total 4921 / 4921 3822 / 3822 4185 / 4185 2710 / 2710 Output Total 3500 / 3500 2900 / 2900 1999 / 1999 600 / 600 Balance 1421 / 1421 922 / 922 2185 / 2185 2110 / 2110 - Physical Exam Oriented: Normal, Time, Person, Place Eyes: Normal Ear: Normal Nose: Normal Throat: Normal Respiratory: Normal Cardiovascular: Normal : Normal Auscultation: Bowel Sounds: Normal Tenderness: Diffuse (soft, flat abdomen with good bowel sounds .clean incosions ..), Moderate Skin: Decreased Turgur Musculoskeletal: Normal Psychiatric: Normal Mood Description: Calm Affect: Normal Speech Pattern: Clear, Appropriate - Laboratory and Diagnostics Result Diagrams: 12/15/21 04:28 12/15/21 04:28 Labs: 12/05/21 17:42 Blood Blood Culture - Final 12/05/21 17:32 Blood Blood Culture - Final Laboratory WBC 7.9 X10^3/uL (3.6-10.0) 12/15/21 04:28 RBC 3.41 X10^6/uL (3.5-5.4) L 12/15/21 04:28 Hgb 10.6 g/dL (12.0-16.0) L 12/15/21 04:28 Hct 30.9 % (36.0-47.0) L 12/15/21 04:28 MCV 90.5 fL (80.0-100.0) 12/15/21 04:28 MCH 31.2 pg (27.0-34.0) 12/15/21 04:28 MCHC 34.4 g/dL (33.0-35.0) 12/15/21 04:28 RDW 13.4 % (11.6-16.5) 12/15/21 04:28 Plt Count 346 X10^3/uL (150.0-450.0) 12/15/21 04:28 Plt Count Comment Increased (ADEQUATE) A 12/06/21 10:22 MPV 7.6 fL (7.4-11.0) 12/15/21 04:28 Neut % (Auto) 70.0 % (42.0-75.0) 12/15/21 04:28 Lymph % (Auto) 15.9 % (21.0-51.0) L 12/15/21 04:28 [place] % (Auto) 11.0 % (0.0-13.0) 12/15/21 04:28 Eos % (Auto) 1.9 % (0.9-2.9) 12/15/21 04:28 Baso % (Auto) 1.2 % (0.2-1.0) H 12/15/21 04:28 Neut # (Auto) 5.5 x10^3/uL (2.2-4.8) H 12/15/21 04:28 Lymph # (Auto) 1.3 X10^3/uL (1.3-2.9) 12/15/21 04:28 [place] # (Auto) 0.9 x10^3/uL (0.3-0.8) H 12/15/21 04:28 Eos # (Auto) 0.1 x10^3/uL (0.0-0.2) 12/15/21 04:28 Baso # (Auto) 0.1 X10^3/uL (0.0-0.1) 12/15/21 04:28 Absolute Nucleated RBC 0.1 /100WBC 12/15/21 04:28 Total Counted 100 12/06/21 10:22 Neutrophils % (Manual) 98 % (39-76) H 12/06/21 10:22 Band Neutrophils % 1 % (0-10) 12/06/21 10:22 Lymphocytes % (Manual) 1 % (13-43) L 12/06/21 10:22 Plt Morphology Comment Normal (NORMAL) 12/06/21 10:22 RBC Morphology Normal (NORMAL) 12/06/21 10:22 PT 16.4 SECONDS (11.8-14.3) 12/06/21 10:22 INR Target Range - 12/06/21 10:22 INR 1.39 (0.8-1.3) H 12/06/21 10:22 Sodium 137 mmol/L (136-145) 12/15/21 04:28 Corrected Sodium TNP 12/15/21 04:28 Potassium 3.9 mmol/L (3.5-5.1) 12/15/21 04:28 Chloride 102 mmol/L (98-107) 12/15/21 04:28 Carbon Dioxide 25.7 mmol/L (21-32) 12/15/21 04:28 BUN 11 mg/dL (7-18) 12/15/21 04:28 Creatinine 0.54 mg/dL (0.55-1.02) L 12/15/21 04:28 Est GFR (MDRD) Af Amer > 60 (>60) 12/15/21 04:28 Est GFR (MDRD) Non-Af > 60 (>60) 12/15/21 04:28 Glucose 96 mg/dL (65-99) 12/15/21 04:28 POC Glucose (mg/dL) 108 mg/dL (65-99) H 12/15/21 19:44 Calcium 8.4 mg/dL (8.5-10.1) L 12/15/21 04:28 Corrected Calcium 9.1 mg/dL (8.5-10.1) 12/14/21 04:35 Phosphorus 3.5 mg/dL (2.6-4.7) 12/15/21 04:28 Magnesium 1.6 mg/dL (1.7-2.9) L 12/15/21 04:28 Iron 16 ug/dL (50-175) L 12/08/21 14:21 TIBC 205 ug/dL (250-450) L 12/08/21 14:21 % Saturation 7.8 % (11.0-46.0) L 12/08/21 14:21 Ferritin 155 ng/mL (8-252) 12/08/21 14:21 Total Bilirubin 0.60 mg/dL (0.2-1.0) 12/14/21 04:35 AST 51 Units/L (15-37) H 12/14/21 04:35 ALT 81 Units/L (12-78) H 12/14/21 04:35 Alkaline Phosphatase 126 Units/L (46-116) H 12/14/21 04:35 Total Protein 6.5 g/dL (6.4-8.2) 12/14/21 04:35 Albumin 3.0 g/dL (3.4-5.0) L 12/14/21 04:35 Globulin 3.5 g/dL (2.5-4.5) 12/14/21 04:35 Albumin/Globulin Ratio 0.9 Ratio (1.1-2.1) L 12/14/21 04:35 Prealbumin 15.2 mg/dL (18-35.7) L 12/12/21 04:25 Cojrn-0-Tgogssmugnt 237 mg/dL (90-200) H 12/08/21 14:21 Ceruloplasmin 30 mg/dL (16-45) 12/08/21 14:21 Triglycerides 86 mg/dL (0-150) 12/15/21 04:28 Amylase 105 Units/L (25-115) 12/15/21 04:28 Lipase 394 Units/L (73-393) H 12/15/21 04:28 Carcinoembryonic Ag 1.4 ng/mL (<=3.8) 12/09/21 14:36 CA 19-9 Antigen 13 U/mL (<=35) 12/09/21 14:36 TSH 3rd Generation 1.311 uIU/mL (0.358-3.74) 12/03/21 18:47 HCG, Qual Negative <10 mIU/mL 12/04/21 04:39 ALLAN Screen None detected (None Detected) 12/08/21 14:21 ALLAN Titer TNP 12/08/21 14:21 ALLAN Pattern TNP 12/08/21 14:21 Anti-Mitochondrial Ab 3.6 Units (0.0-24.9) 12/08/21 14:21 Smooth Muscle Ab Titer 1:20 (<1:20) H 12/08/21 14:21 Hepatitis A IgM Ab Negative (Negative) 12/08/21 14:21 Hep Bs Antigen Negative (Negative) 12/08/21 14:21 Hep Bs Ag Confirmation TNP 12/08/21 14:21 Hep B Core IgM Ab Negative (Negative) 12/08/21 14:21 Hepatitis C Ab Index 0.12 IV 12/08/21 14:21 Hepatitis C Interp Negative (Negative) 12/08/21 14:21 Hepatitis Interpret See note 12/08/21 14:21 SARS CoV-2 RNA Rapid MACK Negative (NEGATIVE) 12/03/21 20:49 Tissue Pathology To follow 12/06/21 08:27 - Plan (1) Acute hypotension Status: Resolved Plan: IV fluids (2) Hypokalemia Status: Acute Plan: replace (3) Abdominal pain Status: Acute (4) Anemia Status: Acute (5) Hypertensive urgency Status: Acute (6) Gastritis Status: Acute (7) Nausea & vomiting Status: Acute Plan: I will recommend to continue with IV Protonix. I will recommend to give Reglan 10 mg four times a day. A repeat CT of the abdomen with contrast will be ordered. Cont NG tube with intermittent suctioning. Serological workup for liver diseases will be ordered. The patient will need further workup once she is more stable from a postoperative standpoint for which I have recommended outpatient follow up. Dulcolax Supp (8) Cholecystitis Status: Acute Plan: IV fluids, IV abx, Nausea and pain control. Patient unerwent EGD with Dr. Masters-see report. As per surgery team. NGT LIWS-as per surgery (9) Pneumonia Status: Acute Plan: Improved. IV abx
[2021-12-15] MEDS: LIPOSYN III 20% 100ML 100 ML IV SCH (21:00)
[2021-12-16] MEDS: AMBIEN PO PRN (00:10)
[2021-12-16] MEDS: DEMEROL INJ IVP PRN ×6 (01:30→21:24)
[2021-12-16] MEDS: D5 1/2 NS 1,000 ML 1,000 ML IV SCH ×3 (03:06→20:47)
[2021-12-16 05:02] LABS: BASOPHILS # (AUTO) 0.1 X10^3/uL (0.0-0.1); BASOPHILS % (AUTO) 1.3 % (0.2-1.0); EOSINOPHILS # (AUTO) 0.1 x10^3/uL (0.0-0.2); EOSINOPHILS % (AUTO) 1.3 % (0.9-2.9); HEMATOCRIT 30.7 % (36.0-47.0); HEMOGLOBIN 10.5 g/dL (12.0-16.0); LYMPHOCYTES # (AUTO) 1.1 X10^3/uL (1.3-2.9); LYMPHOCYTES % (AUTO) 14.2 % (21.0-51.0); MEAN CORPUSCULAR HEMOGLOBIN 30.9 pg (27.0-34.0); MEAN CORPUSCULAR VOLUME 90.8 fL (80.0-100.0); MEAN PLATELET VOLUME 7.7 fL (7.4-11.0); MONOCYTES # (AUTO) 0.9 x10^3/uL (0.3-0.8); MONOCYTES % (AUTO) 11.4 % (0.0-13.0); NEUTROPHILS # (AUTO) 5.5 x10^3/uL (2.2-4.8); NEUTROPHILS % (AUTO) 71.8 % (42.0-75.0); RED BLOOD COUNT 3.38 X10^6/uL (3.5-5.4); RED CELL DISTRIBUTION WIDTH 13.8 % (11.6-16.5); WHITE BLOOD COUNT 7.6 X10^3/uL (3.6-10.0)
[2021-12-16 05:06] LABS: BLOOD UREA NITROGEN 10 mg/dL (7-18); CALCIUM 8.2 mg/dL (8.5-10.1); CARBON DIOXIDE 24.9 mmol/L (21-32); CHLORIDE 102 mmol/L (98-107); CREATININE 0.43 mg/dL (0.55-1.02); SODIUM 136 mmol/L (136-145); eGFR NON BLACK RACES > 60 (>60)
[2021-12-16] MEDS: ZOSYN VIAL 3.375 GRAMS 3.375 G in NS 100 ML IV 100 ML IV SCH (05:41)
[2021-12-16] MEDS: REGLAN INJ 10 MG VIAL IVP SCH ×4 (05:41→23:45)
[2021-12-16 05:55] LABS: BAND NEUTROPHILS % 1 % (0-10); BASOPHILS % (MANUAL) 1 % (0-1); METAMYELOCYTES % 2
[2021-12-16 05:56] LABS: PLATELET MORPHOLOGY COMMENT NORMAL (NORMAL)
[2021-12-16] MEDS: SYNTHROID INJ 100 mcg VIAL IM SCH (08:01)
[2021-12-16] MEDS: LOVENOX INJ 40 MG SYR SC SCH (08:01)
[2021-12-16] MEDS: CLINIMIX 4.25 %/10 % 1,000 ML with MVI INJ (ADULT) 10 ML, POTASSIUM CHLORIDE INJ 20 MEQ... IV SCH ×8 (08:01→21:22)
[2021-12-16] MEDS: PROTONIX INJ 40 MG VIAL IVP SCH ×2 (08:01→21:23)
[2021-12-16] MEDS: CATAPRES-TTS-2 TD SCH (10:31)
[2021-12-16] MEDS: ATIVAN INJ 2 MG VIAL IVP PRN ×2 (11:07→21:23)
--- NOTE | 2021-12-16 14:01 | DR.PROGNOT ---
Hospital Progress Notes - Progress Note for Day of: Progress Note Date: 12/16/21 - Chief Complaint Chief Complaint: seems to be getting better today . NGT drainage was minimal over night . had small BM .. afebrile . - Past Medical Family Social History Past Med/Fam/Surg Hx: No changes since H&P Allergies: Allergies No Known Drug Allergies Allergy (Verified 11/23/21 10:01) - Review Of Systems ROS: No change since H&P - Vital Signs Vital Signs: Temperature 97.6 F Pulse Rate 84 Respiratory Rate 18 Blood Pressure [Left Arm] 147/78 Blood Pressure 117/85 O2 Sat by Pulse Oximetry 99 - Physical Exam Oriented: Normal, Time, Person, Place Eyes: Normal Ear: Normal Nose: Normal Throat: Normal Respiratory: Normal Cardiovascular: Normal : Normal GI:Auscultation: Normal GI:Palpation: Normal GI: Tenderness: Diffuse (soft, flat abdomen with good bowel sounds .all incisions are clean , no infection), Moderate Skin: Decreased Turgur Musculoskeletal: Normal Psychiatric: Normal Mood Description: Calm Affect: Normal Speech Pattern: Clear, Appropriate - Laboratory and Diagnostics Result Diagrams: 12/16/21 04:30 12/16/21 04:30 Labs: 12/05/21 17:42 Blood Blood Culture - Final 12/05/21 17:32 Blood Blood Culture - Final Laboratory WBC 7.6 X10^3/uL (3.6-10.0) 12/16/21 04:30 RBC 3.38 X10^6/uL (3.5-5.4) L 12/16/21 04:30 Hgb 10.5 g/dL (12.0-16.0) L 12/16/21 04:30 Hct 30.7 % (36.0-47.0) L 12/16/21 04:30 MCV 90.8 fL (80.0-100.0) 12/16/21 04:30 MCH 30.9 pg (27.0-34.0) 12/16/21 04:30 MCHC 34.0 g/dL (33.0-35.0) 12/16/21 04:30 RDW 13.8 % (11.6-16.5) 12/16/21 04:30 Plt Count 310 X10^3/uL (150.0-450.0) 12/16/21 04:30 Plt Count Comment Adequate (ADEQUATE) 12/16/21 04:30 MPV 7.7 fL (7.4-11.0) 12/16/21 04:30 Neut % (Auto) 71.8 % (42.0-75.0) 12/16/21 04:30 Lymph % (Auto) 14.2 % (21.0-51.0) L 12/16/21 04:30 [place] % (Auto) 11.4 % (0.0-13.0) 12/16/21 04:30 Eos % (Auto) 1.3 % (0.9-2.9) 12/16/21 04:30 Baso % (Auto) 1.3 % (0.2-1.0) H 12/16/21 04:30 Neut # (Auto) 5.5 x10^3/uL (2.2-4.8) H 12/16/21 04:30 Lymph # (Auto) 1.1 X10^3/uL (1.3-2.9) L 12/16/21 04:30 [place] # (Auto) 0.9 x10^3/uL (0.3-0.8) H 12/16/21 04:30 Eos # (Auto) 0.1 x10^3/uL (0.0-0.2) 12/16/21 04:30 Baso # (Auto) 0.1 X10^3/uL (0.0-0.1) 12/16/21 04:30 Absolute Nucleated RBC 0.0 /100WBC 12/16/21 04:30 Total Counted 100 12/16/21 04:30 Neutrophils % (Manual) 76 % (39-76) 12/16/21 04:30 Band Neutrophils % 1 % (0-10) 12/16/21 04:30 Lymphocytes % (Manual) 10 % (13-43) L 12/16/21 04:30 Monocytes % (Manual) 9 % (4-9) 12/16/21 04:30 Eosinophils % (Manual) 1 % (0-6) 12/16/21 04:30 Basophils % (Manual) 1 % (0-1) 12/16/21 04:30 Metamyelocytes % 2 12/16/21 04:30 Plt Morphology Comment Normal (NORMAL) 12/16/21 04:30 RBC Morphology Normal (NORMAL) 12/16/21 04:30 PT 16.4 SECONDS (11.8-14.3) 12/06/21 10:22 INR Target Range - 12/06/21 10: INR 1.39 (0.8-1.3) H 12/06/21 10:22 Sodium 136 mmol/L (136-145) 12/16/21 04:30 Corrected Sodium TNP 12/16/21 04:30 Potassium 4.2 mmol/L (3.5-5.1) 12/16/21 04:30 Chloride 102 mmol/L (98-107) 12/16/21 04:30 Carbon Dioxide 24.9 mmol/L (21-32) 12/16/21 04:30 BUN 10 mg/dL (7-18) 12/16/21 04:30 Creatinine 0.43 mg/dL (0.55-1.02) L 12/16/21 04:30 Est GFR (MDRD) Af Amer > 60 (>60) 12/16/21 04:30 Est GFR (MDRD) Non-Af > 60 (>60) 12/16/21 04:30 Glucose 102 mg/dL (65-99) H 12/16/21 04:30 POC Glucose (mg/dL) 121 mg/dL (65-99) H 12/16/21 12:06 Calcium 8.2 mg/dL (8.5-10.1) L 12/16/21 04:30 Corrected Calcium 9.1 mg/dL (8.5-10.1) 12/14/21 04:35 Phosphorus 3.5 mg/dL (2.6-4.7) 12/15/21 04:28 Magnesium 2.2 mg/dL (1.7-2.9) 12/16/21 04:30 Iron 16 ug/dL (50-175) L 12/08/21 14:21 TIBC 205 ug/dL (250-450) L 12/08/21 14:21 % Saturation 7.8 % (11.0-46.0) L 12/08/21 14:21 Ferritin 155 ng/mL (8-252) 12/08/21 14:21 Total Bilirubin 0.60 mg/dL (0.2-1.0) 12/14/21 04:35 AST 51 Units/L (15-37) H 12/14/21 04:35 ALT 81 Units/L (12-78) H 12/14/21 04:35 Alkaline Phosphatase 126 Units/L (46-116) H 12/14/21 04:35 Total Protein 6.5 g/dL (6.4-8.2) 12/14/21 04:35 Albumin 3.0 g/dL (3.4-5.0) L 12/14/21 04:35 Globulin 3.5 g/dL (2.5-4.5) 12/14/21 04:35 Albumin/Globulin Ratio 0.9 Ratio (1.1-2.1) L 12/14/21 04:35 Prealbumin 15.2 mg/dL (18-35.7) L 12/12/21 04:25 Pfbqc-5-Sgfwsausgzz 237 mg/dL (90-200) H 12/08/21 14:21 Ceruloplasmin 30 mg/dL (16-45) 12/08/21 14:21 Triglycerides 86 mg/dL (0-150) 12/15/21 04:28 Amylase 105 Units/L (25-115) 12/15/21 04:28 Lipase 394 Units/L (73-393) H 12/15/21 04:28 Carcinoembryonic Ag 1.4 ng/mL (<=3.8) 12/09/21 14:36 CA 19-9 Antigen 13 U/mL (<=35) 12/09/21 14:36 TSH 3rd Generation 1.311 uIU/mL (0.358-3.74) 12/03/21 18:47 HCG, Qual Negative <10 mIU/mL 12/04/21 04:39 [place] 137.7 ug/dL (80.0-155.0) 12/08/21 14:21 ALLAN Screen None detected (None Detected) 12/08/21 14:21 ALLAN Titer TNP 12/08/21 14:21 ALLAN Pattern TNP 12/08/21 14:21 Anti-Mitochondrial Ab 3.6 Units (0.0-24.9) 12/08/21 14:21 Smooth Muscle Ab Titer 1:20 (<1:20) H 12/08/21 14:21 Hepatitis A IgM Ab Negative (Negative) 12/08/21 14:21 Hep Bs Antigen Negative (Negative) 12/08/21 14:21 Hep Bs Ag Confirmation TNP 12/08/21 14:21 Hep B Core IgM Ab Negative (Negative) 12/08/21 14:21 Hepatitis C Ab Index 0.12 IV 12/08/21 14:21 Hepatitis C Interp Negative (Negative) 12/08/21 14:21 Hepatitis Interpret See note 12/08/21 14:21 SARS CoV-2 RNA Rapid MACK Negative (NEGATIVE) 12/03/21 20:49 Tissue Pathology To follow 12/06/21 08:27 - Assessment and Plan 1: obstructed area of the distal duodenum ( external compression ). improved after endoscopy and passing the scope through the duodenum . to D/C the NGT and continue full liquid diet . Same TPN . - Problem Patient Problems: Patient Problems Acute hypotension (Resolved) I95.9 Hypokalemia (Acute) E87.6 Hypokalemia (Acute) E87.6 Abdominal pain (Acute) R10.9 Acute epigastric pain (Acute) R10.13 Anemia (Acute) D64.9 Hypertensive urgency (Acute) I16.0 Gastritis (Acute) K29.70 Nausea & vomiting (Acute) R11.2 Abnormal LFTs (Acute) R79.89 Cholecystitis (Acute) K81.9 Pneumonia (Acute) J18.9
[2021-12-16] MEDS: LIPOSYN III 20% 100ML 100 ML IV SCH (21:23)
[2021-12-16] MEDS: ZOFRAN INJ 4 MG VIAL IVP PRN (21:25)
--- NOTE | 2021-12-17 00:22 | PCM.PROG ---
Progress Note - Progress Note for Day of Date of Exam: 12/16/21 - Subjective Subjective: Patient is a 46 yo female who was admitted as per HPI. She is status post lap verona. Patient underwent EGD today with Dr. Lin; see report, report reviewed. NGT has been removed. Patient is currently tolerating clear liquids. Patient appears overall improved. Patient reports passing flatus and having BMs. Once patient able to tolerate diet then she can be discharged home. No questions at present. Patient is receiving TPN. She is currently receiving IVF, antiemetics, and IV demerol prn for pain. Antibiotics: IV Zosyn. Will follow up on Surgery's recommendation and plan. Otherwise will continue with current treatment plan. Continue to monitor and follow up labs/imaging in the morning. - Past Medical Family Social History Past Med/Fam/Surg Hx: No changes since H&P Allergies: Allergies No Known Drug Allergies Allergy (Verified 11/23/21 10:01) - Review of Systems ROS: No change since H&P - Vital Signs and I&O's Vital Signs: Temperature 98.5 F Pulse Rate 87 Respiratory Rate 14 Blood Pressure [Left Arm] 147/78 Blood Pressure 106/70 O2 Sat by Pulse Oximetry 97 Intake and Output: Intake & Output 12/14/21 12/15/21 12/16/21 12/17/21 23:59 23:59 23:59 23:59 Intake Total 4185 / 4185 3870 / 3870 4215 / 4215 Output Total 1999 / 1999 600 / 600 Balance 2185 / 2185 3270 / 3270 4215 / 4215 - Physical Exam Oriented: Normal, Time, Person, Place Eyes: Normal Ear: Normal Nose: Normal Throat: Normal Respiratory: Normal Cardiovascular: Normal : Normal Auscultation: Bowel Sounds: Normal Palpation: Normal Tenderness: Diffuse (soft, flat abdomen with good bowel sounds .all incisions are clean , no infection), Moderate Skin: Decreased Turgur Musculoskeletal: Normal Psychiatric: Normal Mood Description: Calm Affect: Normal Speech Pattern: Clear, Appropriate - Laboratory and Diagnostics Result Diagrams: 12/16/21 04:30 12/16/21 04:30 Labs: 12/05/21 17:42 Blood Blood Culture - Final 12/05/21 17:32 Blood Blood Culture - Final Laboratory WBC 7.6 X10^3/uL (3.6-10.0) 12/16/21 04:30 RBC 3.38 X10^6/uL (3.5-5.4) L 12/16/21 04:30 Hgb 10.5 g/dL (12.0-16.0) L 12/16/21 04:30 Hct 30.7 % (36.0-47.0) L 12/16/21 04:30 MCV 90.8 fL (80.0-100.0) 12/16/21 04:30 MCH 30.9 pg (27.0-34.0) 12/16/21 04:30 MCHC 34.0 g/dL (33.0-35.0) 12/16/21 04:30 RDW 13.8 % (11.6-16.5) 12/16/21 04:30 Plt Count 310 X10^3/uL (150.0-450.0) 12/16/21 04:30 Plt Count Comment Adequate (ADEQUATE) 12/16/21 04:30 MPV 7.7 fL (7.4-11.0) 12/16/21 04:30 Neut % (Auto) 71.8 % (42.0-75.0) 12/16/21 04:30 Lymph % (Auto) 14.2 % (21.0-51.0) L 12/16/21 04:30 [place] % (Auto) 11.4 % (0.0-13.0) 12/16/21 04:30 Eos % (Auto) 1.3 % (0.9-2.9) 12/16/21 04:30 Baso % (Auto) 1.3 % (0.2-1.0) H 12/16/21 04:30 Neut # (Auto) 5.5 x10^3/uL (2.2-4.8) H 12/16/21 04:30 Lymph # (Auto) 1.1 X10^3/uL (1.3-2.9) L 12/16/21 04:30 [place] # (Auto) 0.9 x10^3/uL (0.3-0.8) H 12/16/21 04:30 Eos # (Auto) 0.1 x10^3/uL (0.0-0.2) 12/16/21 04:30 Baso # (Auto) 0.1 X10^3/uL (0.0-0.1) 12/16/21 04:30 Absolute Nucleated RBC 0.0 /100WBC 12/16/21 04:30 Total Counted 100 12/16/21 04:30 Neutrophils % (Manual) 76 % (39-76) 12/16/21 04:30 Band Neutrophils % 1 % (0-10) 12/16/21 04:30 Lymphocytes % (Manual) 10 % (13-43) L 12/16/21 04:30 Monocytes % (Manual) 9 % (4-9) 12/16/21 04:30 Eosinophils % (Manual) 1 % (0-6) 12/16/21 04:30 Basophils % (Manual) 1 % (0-1) 12/16/21 04:30 Metamyelocytes % 2 12/16/21 04:30 Plt Morphology Comment Normal (NORMAL) 12/16/21 04:30 RBC Morphology Normal (NORMAL) 12/16/21 04:30 PT 16.4 SECONDS (11.8-14.3) 12/06/21 10:22 INR Target Range - 12/06/21 10:22 INR 1.39 (0.8-1.3) H 12/06/21 10:22 Sodium 136 mmol/L (136-145) 12/16/21 04:30 Corrected Sodium TNP 12/16/21 04:30 Potassium 4.2 mmol/L (3.5-5.1) 12/16/21 04:30 Chloride 102 mmol/L (98-107) 12/16/21 04:30 Carbon Dioxide 24.9 mmol/L (21-32) 12/16/21 04:30 BUN 10 mg/dL (7-18) 12/16/21 04:30 Creatinine 0.43 mg/dL (0.55-1.02) L 12/16/21 04:30 Est GFR (MDRD) Af Amer > 60 (>60) 12/16/21 04:30 Est GFR (MDRD) Non-Af > 60 (>60) 12/16/21 04:30 Glucose 102 mg/dL (65-99) H 12/16/21 04:30 POC Glucose (mg/dL) 102 mg/dL (65-99) H 12/16/21 19:48 Calcium 8.2 mg/dL (8.5-10.1) L 12/16/21 04:30 Corrected Calcium 9.1 mg/dL (8.5-10.1) 12/14/21 04:35 Phosphorus 3.5 mg/dL (2.6-4.7) 12/15/21 04:28 Magnesium 2.2 mg/dL (1.7-2.9) 12/16/21 04:30 Iron 16 ug/dL (50-175) L 12/08/21 14:21 TIBC 205 ug/dL (250-450) L 12/08/21 14:21 % Saturation 7.8 % (11.0-46.0) L 12/08/21 14:21 Ferritin 155 ng/mL (8-252) 12/08/21 14:21 Total Bilirubin 0.60 mg/dL (0.2-1.0) 12/14/21 04:35 AST 51 Units/L (15-37) H 12/14/21 04:35 ALT 81 Units/L (12-78) H 12/14/21 04:35 Alkaline Phosphatase 126 Units/L (46-116) H 12/14/21 04:35 Total Protein 6.5 g/dL (6.4-8.2) 12/14/21 04:35 Albumin 3.0 g/dL (3.4-5.0) L 12/14/21 04:35 Globulin 3.5 g/dL (2.5-4.5) 12/14/21 04:35 Albumin/Globulin Ratio 0.9 Ratio (1.1-2.1) L 12/14/21 04:35 Prealbumin 15.2 mg/dL (18-35.7) L 12/12/21 04:25 Qetkz-3-Ynkhjbwvceo 237 mg/dL (90-200) H 12/08/21 14:21 Ceruloplasmin 30 mg/dL (16-45) 12/08/21 14:21 Triglycerides 86 mg/dL (0-150) 12/15/21 04:28 Amylase 105 Units/L (25-115) 12/15/21 04:28 Lipase 394 Units/L (73-393) H 12/15/21 04:28 Carcinoembryonic Ag 1.4 ng/mL (<=3.8) 12/09/21 14:36 CA 19-9 Antigen 13 U/mL (<=35) 12/09/21 14:36 TSH 3rd Generation 1.311 uIU/mL (0.358-3.74) 12/03/21 18:47 HCG, Qual Negative <10 mIU/mL 12/04/21 04:39 Copper 137.7 ug/dL (80.0-155.0) 12/08/21 14:21 ALLAN Screen None detected (None Detected) 12/08/21 14:21 ALLAN Titer TNP 12/08/21 14:21 ALLAN Pattern TNP 12/08/21 14:21 Anti-Mitochondrial Ab 3.6 Units (0.0-24.9) 12/08/21 14:21 Smooth Muscle Ab Titer 1:20 (<1:20) H 12/08/21 14:21 Hepatitis A IgM Ab Negative (Negative) 12/08/21 14:21 Hep Bs Antigen Negative (Negative) 12/08/21 14:21 Hep Bs Ag Confirmation TNP 12/08/21 14:21 Hep B Core IgM Ab Negative (Negative) 12/08/21 14:21 Hepatitis C Ab Index 0.12 IV 12/08/21 14:21 Hepatitis C Interp Negative (Negative) 12/08/21 14:21 Hepatitis Interpret See note 12/08/21 14:21 SARS CoV-2 RNA Rapid MACK Negative (NEGATIVE) 12/03/21 20:49 Tissue Pathology To follow 12/06/21 08:27 - Plan (1) Acute hypotension Status: Resolved Plan: IV fluids (2) Hypokalemia Status: Acute Plan: replace (3) Abdominal pain Status: Acute (4) Anemia Status: Acute (5) Hypertensive urgency Status: Acute (6) Gastritis Status: Acute Plan: Pending EGD (7) Nausea & vomiting Status: Acute Plan: I will recommend to continue with IV Protonix. I will recommend to give Reglan 10 mg four times a day. A repeat CT of the abdomen with contrast will be ordered. Cont NG tube with intermittent suctioning. Serological workup for liver diseases will be ordered. The patient will need further workup once she is more stable from a postoperative standpoint for which I have recommended outpatient follow up. Dulcolax Supp (8) Cholecystitis Status: Acute Plan: IV fluids, IV abx, Nausea and pain control. Patient unerwent EGD with Dr. Masters-see report. As per surgery team. NGT LIWS-as per surgery (9) Pneumonia Status: Acute Plan: Improved. IV abx (10) Pancreatitis Status: Acute Plan: Improving
[2021-12-17] MEDS: ZOFRAN INJ 4 MG VIAL IVP PRN ×3 (02:25→14:21)
[2021-12-17] MEDS: DEMEROL INJ IVP PRN ×6 (02:25→21:59)
[2021-12-17] MEDS: D5 1/2 NS 1,000 ML 1,000 ML IV SCH ×3 (04:00→18:24)
[2021-12-17] MEDS: REGLAN INJ 10 MG VIAL IVP SCH ×4 (05:30→23:40)
[2021-12-17 05:31] LABS: BASOPHILS # (AUTO) 0.1 X10^3/uL (0.0-0.1); BASOPHILS % (AUTO) 0.9 % (0.2-1.0); EOSINOPHILS # (AUTO) 0.1 x10^3/uL (0.0-0.2); EOSINOPHILS % (AUTO) 1.4 % (0.9-2.9); HEMATOCRIT 29.1 % (36.0-47.0); LYMPHOCYTES # (AUTO) 1.1 X10^3/uL (1.3-2.9); MEAN CORPUSCULAR HEMOGLOBIN 31.2 pg (27.0-34.0); MEAN CORPUSCULAR HGB CONC 34.3 g/dL (33.0-35.0); MEAN PLATELET VOLUME 8.3 fL (7.4-11.0); MONOCYTES # (AUTO) 0.7 x10^3/uL (0.3-0.8); MONOCYTES % (AUTO) 10.1 % (0.0-13.0); NEUTROPHILS # (AUTO) 5.2 x10^3/uL (2.2-4.8); NEUTROPHILS % (AUTO) 72.6 % (42.0-75.0); RED BLOOD COUNT 3.19 X10^6/uL (3.5-5.4); RED CELL DISTRIBUTION WIDTH 13.5 % (11.6-16.5); WHITE BLOOD COUNT 7.2 X10^3/uL (3.6-10.0)
[2021-12-17 05:33] LABS: AMYLASE 71 Units/L (25-115); LIPASE 304 Units/L (73-393)
[2021-12-17 05:37] LABS: BLOOD UREA NITROGEN 8 mg/dL (7-18); CALCIUM 8.1 mg/dL (8.5-10.1); CARBON DIOXIDE 25.6 mmol/L (21-32); CHLORIDE 104 mmol/L (98-107); SODIUM 136 mmol/L (136-145); eGFR NON BLACK RACES > 60 (>60)
[2021-12-17] MEDS: ATIVAN INJ 2 MG VIAL IVP PRN ×3 (06:26→21:45)
[2021-12-17] MEDS: LOVENOX INJ 40 MG SYR SC SCH (08:15)
[2021-12-17] MEDS: PROTONIX INJ 40 MG VIAL IVP SCH ×2 (08:15→21:45)
[2021-12-17] MEDS: SYNTHROID INJ 100 mcg VIAL IM SCH (08:16)
[2021-12-17] MEDS: CLINIMIX 4.25 %/10 % 1,000 ML with MVI INJ (ADULT) 10 ML, POTASSIUM CHLORIDE INJ 20 MEQ... IV SCH ×4 (09:00)
[2021-12-17] MEDS: CLINIMIX 5 %/20 % 1,000 ML with MVI INJ (ADULT) 10 ML, MAGNESIUM SULFATE 50% INJ VIAL 1... IV SCH ×4 (09:17)
--- NOTE | 2021-12-17 09:18 | DR.PROGNOT ---
Hospital Progress Notes - Progress Note for Day of: Progress Note Date: 12/17/21 - Chief Complaint Chief Complaint: NGT was D/C ed yesterday and that was tolerated well but she vomited today about 200 cc . feeling better this am . normal ltes and WBC . all rachel were removed .. afebrile - Past Medical Family Social History Past Med/Fam/Surg Hx: No changes since H&P Allergies: Allergies No Known Drug Allergies Allergy (Verified 11/23/21 10:01) - Review Of Systems ROS: No change since H&P - Vital Signs Vital Signs: Temperature 98.3 F Pulse Rate 92 Respiratory Rate 16 Blood Pressure [Left Arm] 147/78 Blood Pressure 143/98 O2 Sat by Pulse Oximetry 93 - Physical Exam Oriented: Normal, Time, Person, Place Eyes: Normal Ear: Normal Nose: Normal Throat: Normal Respiratory: Normal Cardiovascular: Normal : Normal GI:Auscultation: Normal GI:Palpation: Normal (soft , flat abdomen .. with moderate diffuse tenderness ..BS+ ) GI: Tenderness: Diffuse (soft, flat abdomen with good bowel sounds .all incisions are clean , no infection), Moderate Skin: Decreased Turgur Musculoskeletal: Normal Psychiatric: Normal Mood Description: Calm Affect: Normal Speech Pattern: Clear, Appropriate - Laboratory and Diagnostics Result Diagrams: 12/17/21 04:49 12/17/21 04:49 Labs: 12/05/21 17:42 Blood Blood Culture - Final 12/05/21 17:32 Blood Blood Culture - Final Laboratory WBC 7.2 X10^3/uL (3.6-10.0) 12/17/21 04:49 RBC 3.19 X10^6/uL (3.5-5.4) L 12/17/21 04:49 Hgb 10.0 g/dL (12.0-16.0) L 12/17/21 04:49 Hct 29.1 % (36.0-47.0) L 12/17/21 04:49 MCV 91.0 fL (80.0-100.0) 12/17/21 04:49 MCH 31.2 pg (27.0-34.0) 12/17/21 04:49 MCHC 34.3 g/dL (33.0-35.0) 12/17/21 04:49 RDW 13.5 % (11.6-16.5) 12/17/21 04:49 Plt Count 251 X10^3/uL (150.0-450.0) 12/17/21 04:49 Plt Count Comment Adequate (ADEQUATE) 12/16/21 04:30 MPV 8.3 fL (7.4-11.0) 12/17/21 04:49 Neut % (Auto) 72.6 % (42.0-75.0) 12/17/21 04:49 Lymph % (Auto) 15.0 % (21.0-51.0) L 12/17/21 04:49 [place] % (Auto) 10.1 % (0.0-13.0) 12/17/21 04:49 Eos % (Auto) 1.4 % (0.9-2.9) 12/17/21 04:49 Baso % (Auto) 0.9 % (0.2-1.0) 12/17/21 04:49 Neut # (Auto) 5.2 x10^3/uL (2.2-4.8) H 12/17/21 04:49 Lymph # (Auto) 1.1 X10^3/uL (1.3-2.9) L 12/17/21 04:49 [place] # (Auto) 0.7 x10^3/uL (0.3-0.8) 12/17/21 04:49 Eos # (Auto) 0.1 x10^3/uL (0.0-0.2) 12/17/21 04:49 Baso # (Auto) 0.1 X10^3/uL (0.0-0.1) 12/17/21 04:49 Absolute Nucleated RBC 0.0 /100WBC 12/17/21 04:49 Total Counted 100 12/16/21 04:30 Neutrophils % (Manual) 76 % (39-76) 12/16/21 04:30 Band Neutrophils % 1 % (0-10) 12/16/21 04:30 Lymphocytes % (Manual) 10 % (13-43) L 12/16/21 04:30 Monocytes % (Manual) 9 % (4-9) 12/16/21 04:30 Eosinophils % (Manual) 1 % (0-6) 12/16/21 04:30 Basophils % (Manual) 1 % (0-1) 12/16/21 04:30 Metamyelocytes % 2 12/16/21 04:30 Plt Morphology Comment Normal (NORMAL) 12/16/21 04:30 RBC Morphology Normal (NORMAL) 12/16/21 04:30 PT 16.4 SECONDS (11.8-14.3) 12/06/21 10:22 INR Target Range - 12/06/21 10:22 INR 1.39 (0.8-1.3) H 12/06/21 10:22 Sodium 136 mmol/L (136-145) 12/17/21 04:49 Corrected Sodium TNP 12/17/21 04:49 Potassium 4.4 mmol/L (3.5-5.1) 12/17/21 04:49 Chloride 104 mmol/L (98-107) 12/17/21 04:49 Carbon Dioxide 25.6 mmol/L (21-32) 12/17/21 04:49 BUN 8 mg/dL (7-18) 12/17/21 04:49 Creatinine 0.40 mg/dL (0.55-1.02) L 12/17/21 04:49 Est GFR (MDRD) Af Amer > 60 (>60) 12/17/21 04:49 Est GFR (MDRD) Non-Af > 60 (>60) 12/17/21 04:49 Glucose 95 mg/dL (65-99) 12/17/21 04:49 POC Glucose (mg/dL) 102 mg/dL (65-99) H 12/16/21 19:48 Calcium 8.1 mg/dL (8.5-10.1) L 12/17/21 04:49 Corrected Calcium 9.1 mg/dL (8.5-10.1) 12/14/21 04:35 Phosphorus 3.5 mg/dL (2.6-4.7) 12/15/21 04:28 Magnesium 2.2 mg/dL (1.7-2.9) 12/16/21 04:30 Iron 16 ug/dL (50-175) L 12/08/21 14:21 TIBC 205 ug/dL (250-450) L 12/08/21 14:21 % Saturation 7.8 % (11.0-46.0) L 12/08/21 14:21 Ferritin 155 ng/mL (8-252) 12/08/21 14:21 Total Bilirubin 0.60 mg/dL (0.2-1.0) 12/14/21 04:35 AST 51 Units/L (15-37) H 12/14/21 04:35 ALT 81 Units/L (12-78) H 12/14/21 04:35 Alkaline Phosphatase 126 Units/L (46-116) H 12/14/21 04:35 Total Protein 6.5 g/dL (6.4-8.2) 12/14/21 04:35 Albumin 3.0 g/dL (3.4-5.0) L 12/14/21 04:35 Globulin 3.5 g/dL (2.5-4.5) 12/14/21 04:35 Albumin/Globulin Ratio 0.9 Ratio (1.1-2.1) L 12/14/21 04:35 Prealbumin 15.2 mg/dL (18-35.7) L 12/12/21 04:25 Seols-7-Pseedxyuauy 237 mg/dL (90-200) H 12/08/21 14:21 Ceruloplasmin 30 mg/dL (16-45) 12/08/21 14:21 Triglycerides 86 mg/dL (0-150) 12/15/21 04:28 Amylase 71 Units/L (25-115) 12/17/21 04:49 Lipase 304 Units/L (73-393) 12/17/21 04:49 Carcinoembryonic Ag 1.4 ng/mL (<=3.8) 12/09/21 14:36 CA 19-9 Antigen 13 U/mL (<=35) 12/09/21 14:36 TSH 3rd Generation 1.311 uIU/mL (0.358-3.74) 12/03/21 18:47 HCG, Qual Negative <10 mIU/mL 12/04/21 04:39 Copper 137.7 ug/dL (80.0-155.0) 12/08/21 14:21 ALLAN Screen None detected (None Detected) 12/08/21 14:21 ALLAN Titer TNP 12/08/21 14:21 ALLAN Pattern TNP 12/08/21 14:21 Anti-Mitochondrial Ab 3.6 Units (0.0-24.9) 12/08/21 14:21 Smooth Muscle Ab Titer 1:20 (<1:20) H 12/08/21 14:21 Hepatitis A IgM Ab Negative (Negative) 12/08/21 14:21 Hep Bs Antigen Negative (Negative) 12/08/21 14:21 Hep Bs Ag Confirmation TNP 12/08/21 14:21 Hep B Core IgM Ab Negative (Negative) 12/08/21 14:21 Hepatitis C Ab Index 0.12 IV 12/08/21 14:21 Hepatitis C Interp Negative (Negative) 12/08/21 14:21 Hepatitis Interpret See note 12/08/21 14:21 SARS CoV-2 RNA Rapid MACK Negative (NEGATIVE) 12/03/21 20:49 Tissue Pathology To follow 12/06/21 08:27 - Assessment and Plan 1: resolving partial distal duodenal obstruction of unknown etiology . s/p lap verona . to advance diet . if tolerated well will d/c in am .. - Problem Patient Problems: Patient Problems Acute hypotension (Resolved) I95.9 Hypokalemia (Acute) E87.6 Hypokalemia (Acute) E87.6 Abdominal pain (Acute) R10.9 Acute epigastric pain (Acute) R10.13 Anemia (Acute) D64.9 Hypertensive urgency (Acute) I16.0 Gastritis (Acute) K29.70 Nausea & vomiting (Acute) R11.2 Abnormal LFTs (Acute) R79.89 Cholecystitis (Acute) K81.9 Pneumonia (Acute) J18.9 Pancreatitis (Acute) K85.90
--- NOTE | 2021-12-17 15:44 | PCM.PROG ---
Progress Note Progress Note for Day of Date of Exam: 12/17/21 Subjective Subjective: Patient is a 46 yo female who was admitted as per HPI. She is status post lap verona. Patient underwent EGD yesterday with Dr. Lin; see report, report reviewed. NGT has been removed. Patient is currently tolerating clear liquids. Patient appears overall improved. Patient reports passing flatus and having BMs. Once patient able to tolerate diet then she can be discharged home. No questions at present. Patient is receiving TPN. She is currently receiving IVF, antiemetics, and IV demerol prn for pain. Antibiotics: IV Zosyn. Will follow up on Surgery's recommendation and plan. Otherwise will continue with current treatment plan. Continue to monitor and follow up labs/imaging in the morning. This morning the patient reports vomiting about [address] Finney saw her and plans on advancing her diet. I will plan on discharging her home possibly tomorrow if he is tolerating by mouth intake without getting sick. Past Medical Family Social History Past Med/Fam/Surg Hx: No changes since H&P Allergies: Allergies No Known Drug Allergies Allergy (Verified 11/23/21 10:01) Review of Systems ROS: No change since H&P Vital Signs and I&O's Vital Signs: Temperature 98.2 F Pulse Rate 85 Respiratory Rate 22 Blood Pressure [Left Arm] 147/78 Blood Pressure 145/99 O2 Sat by Pulse Oximetry 97 Intake and Output: Intake & Output 12/15/21 12/16/21 12/17/21 12/18/21 11:59 11:59 11:59 11:59 Intake Total 4248 / 4248 4010 / 4010 4215 / 4215 1439 / 1439 Output Total 1700 / 1700 300 / 300 200 / 200 Balance 2548 / 2548 3710 / 3710 4015 / 4015 1439 / 1439 Physical Exam Oriented: Normal, Time, Person and Place Eyes: Normal Ear: Normal Nose: Normal Throat: Normal Respiratory: Normal Cardiovascular: Normal : Normal Auscultation: Bowel Sounds: Normal Tenderness: Diffuse (soft, flat abdomen with good bowel sounds .all incisions are clean , no infection) and Moderate Skin: Decreased Turgur Musculoskeletal: Normal Psychiatric: Normal Mood Description: Calm Affect: Normal Speech Pattern: Clear and Appropriate Laboratory and Diagnostics Result Diagrams: 12/17/21 04:49 12/17/21 04:49 Labs: 12/05/21 17:42 Blood Blood Culture - Final 12/05/21 17:32 Blood Blood Culture - Final Laboratory WBC 7.2 X10^3/uL (3.6-10.0) 12/17/21 04:49 RBC 3.19 X10^6/uL (3.5-5.4) L 12/17/21 04:49 Hgb 10.0 g/dL (12.0-16.0) L 12/17/21 04:49 Hct 29.1 % (36.0-47.0) L 12/17/21 04:49 MCV 91.0 fL (80.0-100.0) 12/17/21 04:49 MCH 31.2 pg (27.0-34.0) 12/17/21 04:49 MCHC 34.3 g/dL (33.0-35.0) 12/17/21 04:49 RDW 13.5 % (11.6-16.5) 12/17/21 04:49 Plt Count 251 X10^3/uL (150.0-450.0) 12/17/21 04:49 Plt Count Comment Adequate (ADEQUATE) 12/16/21 04:30 MPV 8.3 fL (7.4-11.0) 12/17/21 04:49 Neut % (Auto) 72.6 % (42.0-75.0) 12/17/21 04:49 Lymph % (Auto) 15.0 % (21.0-51.0) L 12/17/21 04:49 [place] % (Auto) 10.1 % (0.0-13.0) 12/17/21 04:49 Eos % (Auto) 1.4 % (0.9-2.9) 12/17/21 04:49 Baso % (Auto) 0.9 % (0.2-1.0) 12/17/21 04:49 Neut # (Auto) 5.2 x10^3/uL (2.2-4.8) H 12/17/21 04:49 Lymph # (Auto) 1.1 X10^3/uL (1.3-2.9) L 12/17/21 04:49 [place] # (Auto) 0.7 x10^3/uL (0.3-0.8) 12/17/21 04:49 Eos # (Auto) 0.1 x10^3/uL (0.0-0.2) 12/17/21 04:49 Baso # (Auto) 0.1 X10^3/uL (0.0-0.1) 12/17/21 04:49 Absolute Nucleated RBC 0.0 /100WBC 12/17/21 04:49 Total Counted 100 12/16/21 04:30 Neutrophils % (Manual) 76 % (39-76) 12/16/21 04:30 Band Neutrophils % 1 % (0-10) 12/16/21 04:30 Lymphocytes % (Manual) 10 % (13-43) L 12/16/21 04:30 Monocytes % (Manual) 9 % (4-9) 12/16/21 04:30 Eosinophils % (Manual) 1 % (0-6) 12/16/21 04:30 Basophils % (Manual) 1 % (0-1) 12/16/21 04:30 Metamyelocytes % 2 12/16/21 04:30 Plt Morphology Comment Normal (NORMAL) 12/16/21 04:30 RBC Morphology Normal (NORMAL) 12/16/21 04:30 PT 16.4 SECONDS (11.8-14.3) 12/06/21 10:22 INR Target Range - 12/06/21 10:22 INR 1.39 (0.8-1.3) H 12/06/21 10:22 Sodium 136 mmol/L (136-145) 12/17/21 04:49 Corrected Sodium TNP 12/17/21 04:49 Potassium 4.4 mmol/L (3.5-5.1) 12/17/21 04:49 Chloride 104 mmol/L (98-107) 12/17/21 04:49 Carbon Dioxide 25.6 mmol/L (21-32) 12/17/21 04:49 BUN 8 mg/dL (7-18) 12/17/21 04:49 Creatinine 0.40 mg/dL (0.55-1.02) L 12/17/21 04:49 Est GFR (MDRD) Af Amer > 60 (>60) 12/17/21 04:49 Est GFR (MDRD) Non-Af > 60 (>60) 12/17/21 04:49 Glucose 95 mg/dL (65-99) 12/17/21 04:49 POC Glucose (mg/dL) 125 mg/dL (65-99) H 12/17/21 11:27 Calcium 8.1 mg/dL (8.5-10.1) L 12/17/21 04:49 Corrected Calcium 9.1 mg/dL (8.5-10.1) 12/14/21 04:35 Phosphorus 3.5 mg/dL (2.6-4.7) 12/15/21 04:28 Magnesium 2.2 mg/dL (1.7-2.9) 12/16/21 04:30 Iron 16 ug/dL (50-175) L 12/08/21 14:21 TIBC 205 ug/dL (250-450) L 12/08/21 14:21 % Saturation 7.8 % (11.0-46.0) L 12/08/21 14:21 Ferritin 155 ng/mL (8-252) 12/08/21 14:21 Total Bilirubin 0.60 mg/dL (0.2-1.0) 12/14/21 04:35 AST 51 Units/L (15-37) H 12/14/21 04:35 ALT 81 Units/L (12-78) H 12/14/21 04:35 Alkaline Phosphatase 126 Units/L (46-116) H 12/14/21 04:35 Total Protein 6.5 g/dL (6.4-8.2) 12/14/21 04:35 Albumin 3.0 g/dL (3.4-5.0) L 12/14/21 04:35 Globulin 3.5 g/dL (2.5-4.5) 12/14/21 04:35 Albumin/Globulin Ratio 0.9 Ratio (1.1-2.1) L 12/14/21 04:35 Prealbumin 15.2 mg/dL (18-35.7) L 12/12/21 04:25 Blbjo-7-Wawddtfasbq 237 mg/dL (90-200) H 12/08/21 14:21 Ceruloplasmin 30 mg/dL (16-45) 12/08/21 14:21 Triglycerides 86 mg/dL (0-150) 12/15/21 04:28 Amylase 71 Units/L (25-115) 12/17/21 04:49 Lipase 304 Units/L (73-393) 12/17/21 04:49 Carcinoembryonic Ag 1.4 ng/mL (<=3.8) 12/09/21 14:36 CA 19-9 Antigen 13 U/mL (<=35) 12/09/21 14:36 TSH 3rd Generation 1.311 uIU/mL (0.358-3.74) 12/03/21 18:47 HCG, Qual Negative <10 mIU/mL 12/04/21 04:39 [place] 137.7 ug/dL (80.0-155.0) 12/08/21 14:21 ALLAN Screen None detected (None Detected) 12/08/21 14:21 ALLAN Titer TNP 12/08/21 14:21 ALLAN Pattern TNP 12/08/21 14:21 Anti-Mitochondrial Ab 3.6 Units (0.0-24.9) 12/08/21 14:21 Smooth Muscle Ab Titer 1:20 (<1:20) H 12/08/21 14:21 Hepatitis A IgM Ab Negative (Negative) 12/08/21 14:21 Hep Bs Antigen Negative (Negative) 12/08/21 14:21 Hep Bs Ag Confirmation TNP 12/08/21 14:21 Hep B Core IgM Ab Negative (Negative) 12/08/21 14:21 Hepatitis C Ab Index 0.12 IV 12/08/21 14:21 Hepatitis C Interp Negative (Negative) 12/08/21 14:21 Hepatitis Interpret See note 12/08/21 14:21 SARS CoV-2 RNA Rapid MACK Negative (NEGATIVE) 12/03/21 20:49 Tissue Pathology To follow 12/06/21 08:27 Plan (1) Acute hypotension: Status: Resolved Plan: IV fluids (2) Hypokalemia: Status: Acute Plan: replace (3) Abdominal pain: Status: Acute (4) Anemia: Status: Acute (5) Hypertensive urgency: Status: Acute (6) Gastritis: Status: Acute Plan: Pending EGD (7) Nausea & vomiting: Status: Acute Plan: I will recommend to continue with IV Protonix. I will recommend to give Reglan 10 mg four times a day. A repeat CT of the abdomen with contrast will be ordered. Cont NG tube with intermittent suctioning. Serological workup for liver diseases will be ordered. The patient will need further workup once she is more stable from a postoperative standpoint for which I have recommended outpatient follow up. Dulcolax Supp (8) Cholecystitis: Status: Acute Plan: IV fluids, IV abx, Nausea and pain control Patient unerwent EGD with Dr. Masters-see report. As per surgery team NGT LIWS-as per surgery (9) Pneumonia: Status: Acute Plan: Improved IV abx (10) Pancreatitis: Status: Acute Plan: Improving
[2021-12-17] MEDS: PHENERGAN INJ 25 MG IM PRN (17:53)
[2021-12-17] MEDS: LIPOSYN III 20% 100ML 100 ML IV SCH (21:45)
[2021-12-17] MEDS: AMBIEN PO PRN (23:40)
[2021-12-18] MEDS: DEMEROL INJ IVP PRN ×6 (02:01→22:31)
[2021-12-18] MEDS: ZOFRAN INJ 4 MG VIAL IVP PRN ×3 (02:02→14:26)
[2021-12-18] MEDS: REGLAN INJ 10 MG VIAL IVP SCH ×4 (05:00→22:30)
[2021-12-18 05:22] LABS: BASOPHILS # (AUTO) 0.1 X10^3/uL (0.0-0.1); BASOPHILS % (AUTO) 0.9 % (0.2-1.0); EOSINOPHILS # (AUTO) 0.1 x10^3/uL (0.0-0.2); EOSINOPHILS % (AUTO) 1.9 % (0.9-2.9); HEMOGLOBIN 9.8 g/dL (12.0-16.0); LYMPHOCYTES # (AUTO) 1.4 X10^3/uL (1.3-2.9); LYMPHOCYTES % (AUTO) 21.3 % (21.0-51.0); MEAN CORPUSCULAR HEMOGLOBIN 30.9 pg (27.0-34.0); MEAN CORPUSCULAR HGB CONC 33.9 g/dL (33.0-35.0); MEAN CORPUSCULAR VOLUME 91.1 fL (80.0-100.0); MEAN PLATELET VOLUME 8.5 fL (7.4-11.0); MONOCYTES # (AUTO) 0.7 x10^3/uL (0.3-0.8); MONOCYTES % (AUTO) 10.8 % (0.0-13.0); NEUTROPHILS # (AUTO) 4.2 x10^3/uL (2.2-4.8); NEUTROPHILS % (AUTO) 65.1 % (42.0-75.0); RED BLOOD COUNT 3.18 X10^6/uL (3.5-5.4); RED CELL DISTRIBUTION WIDTH 13.5 % (11.6-16.5); WHITE BLOOD COUNT 6.5 X10^3/uL (3.6-10.0)
[2021-12-18 05:31] LABS: PREALBUMIN 21.5 mg/dL (18-35.7)
[2021-12-18] MEDS: D5 1/2 NS 1,000 ML 1,000 ML IV SCH ×3 (05:34→18:17)
[2021-12-18] MEDS: CLINIMIX 5 %/20 % 1,000 ML with MVI INJ (ADULT) 10 ML, MAGNESIUM SULFATE 50% INJ VIAL 1... IV SCH ×4 (05:35)
[2021-12-18 05:40] LABS: ALANINE AMINOTRANSFERASE 98 Units/L (12-78); ALBUMIN 2.9 g/dL (3.4-5.0); ALKALINE PHOSPHATASE 135 Units/L (46-116); ASPARTATE AMINO TRANSFERASE 48 Units/L (15-37); BLOOD UREA NITROGEN 7 mg/dL (7-18); CALCIUM 8.4 mg/dL (8.5-10.1); CARBON DIOXIDE 25.5 mmol/L (21-32); CHLORIDE 104 mmol/L (98-107); COR CA(FOR HYPOALB) 9.3 mg/dL (8.5-10.1); CREATININE 0.46 mg/dL (0.55-1.02); MAGNESIUM 2.1 mg/dL (1.7-2.9); PHOSPHORUS 3.7 mg/dL (2.6-4.7); SODIUM 137 mmol/L (136-145); TOTAL PROTEIN 6.3 g/dL (6.4-8.2); TRIGLYCERIDES 57 mg/dL (0-150); eGFR NON BLACK RACES > 60 (>60)
[2021-12-18] MEDS: ATIVAN INJ 2 MG VIAL IVP PRN ×2 (06:24→18:25)
[2021-12-18] MEDS: LOVENOX INJ 40 MG SYR SC SCH (08:10)
[2021-12-18] MEDS: SYNTHROID INJ 100 mcg VIAL IM SCH (08:11)
[2021-12-18] MEDS: PROTONIX INJ 40 MG VIAL IVP SCH ×2 (08:11→20:10)
[2021-12-18] MEDS: K-DUR TAB 20 MEQ PO PRN (08:46)
[2021-12-18] MEDS: APRESOLINE INJ 20 MG VIAL IVP PRN (10:24)
[2021-12-18] MEDS: PHENERGAN INJ 25 MG IM PRN (12:35)
--- NOTE | 2021-12-18 12:45 | DR.PROGNOT ---
Hospital Progress Notes - Progress Note for Day of: Progress Note Date: 12/18/21 - Chief Complaint Chief Complaint: vomited last night about 200 cc . feeling better this am . had small BM this am. normal lytes and WBC . afebrile .. - Past Medical Family Social History Past Med/Fam/Surg Hx: No changes since H&P Allergies: Allergies No Known Drug Allergies Allergy (Verified 11/23/21 10:01) - Review Of Systems ROS: No change since H&P - Vital Signs Vital Signs: Temperature 98.4 F Pulse Rate 96 Respiratory Rate 18 Blood Pressure [Left Arm] 147/78 Blood Pressure 144/84 O2 Sat by Pulse Oximetry 97 - Physical Exam Oriented: Normal, Time, Person, Place Eyes: Normal Ear: Normal Nose: Normal Throat: Normal Respiratory: Normal Cardiovascular: Normal : Normal GI:Auscultation: Normal GI:Palpation: Normal (soft , flat abdomen .. with moderate diffuse tenderness ..BS+ ) GI: Tenderness: Diffuse (soft, flat abdomen with good bowel sounds .all incisions are clean , no infection), Moderate Skin: Decreased Turgur Musculoskeletal: Normal Psychiatric: Normal Mood Description: Calm Affect: Normal Speech Pattern: Clear, Appropriate - Laboratory and Diagnostics Result Diagrams: 12/18/21 04:27 12/18/21 04:27 Labs: 12/05/21 17:42 Blood Blood Culture - Final 12/05/21 17:32 Blood Blood Culture - Final Laboratory WBC 6.5 X10^3/uL (3.6-10.0) 12/18/21 04:27 RBC 3.18 X10^6/uL (3.5-5.4) L 12/18/21 04:27 Hgb 9.8 g/dL (12.0-16.0) L 12/18/21 04:27 Hct 29.0 % (36.0-47.0) L 12/18/21 04:27 MCV 91.1 fL (80.0-100.0) 12/18/21 04:27 MCH 30.9 pg (27.0-34.0) 12/18/21 04:27 MCHC 33.9 g/dL (33.0-35.0) 12/18/21 04:27 RDW 13.5 % (11.6-16.5) 12/18/21 04:27 Plt Count 229 X10^3/uL (150.0-450.0) 12/18/21 04:27 Plt Count Comment Adequate (ADEQUATE) 12/16/21 04:30 MPV 8.5 fL (7.4-11.0) 12/18/21 04:27 Neut % (Auto) 65.1 % (42.0-75.0) 12/18/21 04:27 Lymph % (Auto) 21.3 % (21.0-51.0) 12/18/21 04:27 [place] % (Auto) 10.8 % (0.0-13.0) 12/18/21 04:27 Eos % (Auto) 1.9 % (0.9-2.9) 12/18/21 04:27 Baso % (Auto) 0.9 % (0.2-1.0) 12/18/21 04:27 Neut # (Auto) 4.2 x10^3/uL (2.2-4.8) 12/18/21 04:27 Lymph # (Auto) 1.4 X10^3/uL (1.3-2.9) 12/18/21 04:27 [place] # (Auto) 0.7 x10^3/uL (0.3-0.8) 12/18/21 04:27 Eos # (Auto) 0.1 x10^3/uL (0.0-0.2) 12/18/21 04:27 Baso # (Auto) 0.1 X10^3/uL (0.0-0.1) 12/18/21 04:27 Absolute Nucleated RBC 0.0 /100WBC 12/18/21 04:27 Total Counted 100 12/16/21 04:30 Neutrophils % (Manual) 76 % (39-76) 12/16/21 04:30 Band Neutrophils % 1 % (0-10) 12/16/21 04:30 Lymphocytes % (Manual) 10 % (13-43) L 12/16/21 04:30 Monocytes % (Manual) 9 % (4-9) 12/16/21 04:30 Eosinophils % (Manual) 1 % (0-6) 12/16/21 04:30 Basophils % (Manual) 1 % (0-1) 12/16/21 04:30 Metamyelocytes % 2 12/16/21 04:30 Plt Morphology Comment Normal (NORMAL) 12/16/21 04:30 RBC Morphology Normal (NORMAL) 12/16/21 04:30 PT 16.4 SECONDS (11.8-14.3) 12/06/21 10:22 INR Target Range - 12/06/21 10:22 INR 1.39 (0.8-1.3) H 12/06/21 10:22 Sodium 137 mmol/L (136-145) 12/18/21 04:27 Corrected Sodium TNP 12/18/21 04:27 Potassium 3.6 mmol/L (3.5-5.1) 12/18/21 04:27 Chloride 104 mmol/L (98-107) 12/18/21 04:27 Carbon Dioxide 25.5 mmol/L (21-32) 12/18/21 04:27 BUN 7 mg/dL (7-18) 12/18/21 04:27 Creatinine 0.46 mg/dL (0.55-1.02) L 12/18/21 04:27 Est GFR (MDRD) Af Amer > 60 (>60) 12/18/21 04:27 Est GFR (MDRD) Non-Af > 60 (>60) 12/18/21 04:27 Glucose 96 mg/dL (65-99) 12/18/21 04:27 POC Glucose (mg/dL) 116 mg/dL (65-99) H 12/18/21 11:45 Calcium 8.4 mg/dL (8.5-10.1) L 12/18/21 04:27 Corrected Calcium 9.3 mg/dL (8.5-10.1) 12/18/21 04:27 Phosphorus 3.7 mg/dL (2.6-4.7) 12/18/21 04:27 Magnesium 2.1 mg/dL (1.7-2.9) 12/18/21 04:27 Iron 16 ug/dL (50-175) L 12/08/21 14:21 TIBC 205 ug/dL (250-450) L 12/08/21 14:21 % Saturation 7.8 % (11.0-46.0) L 12/08/21 14:21 Ferritin 155 ng/mL (8-252) 12/08/21 14:21 Total Bilirubin 0.30 mg/dL (0.2-1.0) 12/18/21 04:27 AST 48 Units/L (15-37) H 12/18/21 04:27 ALT 98 Units/L (12-78) H 12/18/21 04:27 Alkaline Phosphatase 135 Units/L (46-116) H 12/18/21 04:27 Total Protein 6.3 g/dL (6.4-8.2) L 12/18/21 04:27 Albumin 2.9 g/dL (3.4-5.0) L 12/18/21 04:27 Globulin 3.4 g/dL (2.5-4.5) 12/18/21 04:27 Albumin/Globulin Ratio 0.9 Ratio (1.1-2.1) L 12/18/21 04:27 Prealbumin 21.5 mg/dL (18-35.7) 12/18/21 04:27 [id number]-7-Voqephjedwq 237 mg/dL (90-200) H 12/08/21 14:21 Ceruloplasmin 30 mg/dL (16-45) 12/08/21 14:21 Triglycerides 57 mg/dL (0-150) 12/18/21 04:27 Amylase 71 Units/L (25-115) 12/17/21 04:49 Lipase 304 Units/L (73-393) 12/17/21 04:49 Carcinoembryonic Ag 1.4 ng/mL (<=3.8) 12/09/21 14:36 CA 19-9 Antigen 13 U/mL (<=35) 12/09/21 14:36 TSH 3rd Generation 1.311 uIU/mL (0.358-3.74) 12/03/21 18:47 HCG, Qual Negative <10 mIU/mL 12/04/21 04:39 Copper 137.7 ug/dL (80.0-155.0) 12/08/21 14:21 ALLAN Screen None detected (None Detected) 12/08/21 14:21 ALLAN Titer TNP 12/08/21 14:21 ALLAN Pattern TNP 12/08/21 14:21 Anti-Mitochondrial Ab 3.6 Units (0.0-24.9) 12/08/21 14:21 Smooth Muscle Ab Titer 1:20 (<1:20) H 12/08/21 14:21 Hepatitis A IgM Ab Negative (Negative) 12/08/21 14:21 Hep Bs Antigen Negative (Negative) 12/08/21 14:21 Hep Bs Ag Confirmation TNP 12/08/21 14:21 Hep B Core IgM Ab Negative (Negative) 12/08/21 14:21 Hepatitis C Ab Index 0.12 IV 12/08/21 14:21 Hepatitis C Interp Negative (Negative) 12/08/21 14:21 Hepatitis Interpret See note 12/08/21 14:21 SARS CoV-2 RNA Rapid MACK Negative (NEGATIVE) 12/03/21 20:49 Tissue Pathology To follow 12/06/21 08:27 - Assessment and Plan 1: resolving partial distal duodenal obstruction of unknown etiology . s/p lap verona . to add Ensure astolerated ... abdominal , pelvic CT with oral contrast only .. - Problem Patient Problems: Patient Problems Acute hypotension (Resolved) I95.9 Hypokalemia (Acute) E87.6 Hypokalemia (Acute) E87.6 Abdominal pain (Acute) R10.9 Acute epigastric pain (Acute) R10.13 Anemia (Acute) D64.9 Hypertensive urgency (Acute) I16.0 Gastritis (Acute) K29.70 Nausea & vomiting (Acute) R11.2 Abnormal LFTs (Acute) R79.89 Cholecystitis (Acute) K81.9 Pneumonia (Acute) J18.9 Pancreatitis (Acute) K85.90
--- NOTE | 2021-12-18 14:30 | PCM.PROG ---
Progress Note Progress Note for Day of Date of Exam: 12/18/21 Subjective Subjective: Patient is a 46 yo female who was admitted as per HPI. She is status post lap verona. Patient underwent EGD yesterday with Dr. Lin; see report, report reviewed. NGT has been removed. Patient is currently tolerating clear liquids. Patient appears overall improved. Patient reports passing flatus and having BMs. Once patient able to tolerate diet then she can be discharged home. No questions at present. Patient is receiving TPN. She is currently receiving IVF, antiemetics, and IV demerol prn for pain. Antibiotics: IV Zosyn. Will follow up on Surgery's recommendation and plan. Otherwise will continue with current treatment plan. Continue to monitor and follow up labs/imaging in the morning. This morning the patient reports vomiting about 300 mL of liquid yesterday afternoon. Dr. Finney saw her and plans on advancing her diet. The patient does report tolerating by mouth intake. However she is still getting nauseated. Her hemoglobin dropped to 9.8 this morning. Possible discharge home in the morning. Past Medical Family Social History Past Med/Fam/Surg Hx: No changes since H&P Allergies: Allergies No Known Drug Allergies Allergy (Verified 11/23/21 10:01) Review of Systems ROS: No change since H&P Vital Signs and I&O's Vital Signs: Temperature 98.4 F Pulse Rate 108 Respiratory Rate 18 Blood Pressure [Left Arm] 147/78 Blood Pressure 154/94 O2 Sat by Pulse Oximetry 96 Intake and Output: Intake & Output 12/16/21 12/17/21 12/18/21 12/19/21 11:59 11:59 11:59 11:59 Intake Total 4010 / 4010 4215 / 4215 3489 / 3489 Output Total 300 / 300 200 / 200 300 / 300 Balance 3710 / 3710 4015 / 4015 3189 / 3189 Physical Exam Oriented: Normal, Time, Person and Place Eyes: Normal Ear: Normal Nose: Normal Throat: Normal Respiratory: Normal Cardiovascular: Normal : Normal Auscultation: Bowel Sounds: Normal Tenderness: Diffuse (soft, flat abdomen with good bowel sounds .all incisions are clean , no infection) and Moderate Skin: Decreased Turgur Musculoskeletal: Normal Psychiatric: Normal Mood Description: Calm Affect: Normal Speech Pattern: Clear and Appropriate Laboratory and Diagnostics Result Diagrams: 12/18/21 04:27 12/18/21 04:27 Labs: 12/05/21 17:42 Blood Blood Culture - Final 12/05/21 17:32 Blood Blood Culture - Final Laboratory WBC 6.5 X10^3/uL (3.6-10.0) 12/18/21 04:27 RBC 3.18 X10^6/uL (3.5-5.4) L 12/18/21 04:27 Hgb 9.8 g/dL (12.0-16.0) L 12/18/21 04:27 Hct 29.0 % (36.0-47.0) L 12/18/21 04:27 MCV 91.1 fL (80.0-100.0) 12/18/21 04:27 MCH 30.9 pg (27.0-34.0) 12/18/21 04:27 MCHC 33.9 g/dL (33.0-35.0) 12/18/21 04:27 RDW 13.5 % (11.6-16.5) 12/18/21 04:27 Plt Count 229 X10^3/uL (150.0-450.0) 12/18/21 04:27 Plt Count Comment Adequate (ADEQUATE) 12/16/21 04:30 MPV 8.5 fL (7.4-11.0) 12/18/21 04:27 Neut % (Auto) 65.1 % (42.0-75.0) 12/18/21 04:27 Lymph % (Auto) 21.3 % (21.0-51.0) 12/18/21 04:27 [place] % (Auto) 10.8 % (0.0-13.0) 12/18/21 04:27 Eos % (Auto) 1.9 % (0.9-2.9) 12/18/21 04:27 Baso % (Auto) 0.9 % (0.2-1.0) 12/18/21 04:27 Neut # (Auto) 4.2 x10^3/uL (2.2-4.8) 12/18/21 04:27 Lymph # (Auto) 1.4 X10^3/uL (1.3-2.9) 12/18/21 04:27 [place] # (Auto) 0.7 x10^3/uL (0.3-0.8) 12/18/21 04:27 Eos # (Auto) 0.1 x10^3/uL (0.0-0.2) 12/18/21 04:27 Baso # (Auto) 0.1 X10^3/uL (0.0-0.1) 12/18/21 04:27 Absolute Nucleated RBC 0.0 /100WBC 12/18/21 04:27 Total Counted 100 12/16/21 04:30 Neutrophils % (Manual) 76 % (39-76) 12/16/21 04:30 Band Neutrophils % 1 % (0-10) 12/16/21 04:30 Lymphocytes % (Manual) 10 % (13-43) L 12/16/21 04:30 Monocytes % (Manual) 9 % (4-9) 12/16/21 04:30 Eosinophils % (Manual) 1 % (0-6) 12/16/21 04:30 Basophils % (Manual) 1 % (0-1) 12/16/21 04:30 Metamyelocytes % 2 12/16/21 04:30 Plt Morphology Comment Normal (NORMAL) 12/16/21 04:30 RBC Morphology Normal (NORMAL) 12/16/21 04:30 PT 16.4 SECONDS (11.8-14.3) 12/06/21 10:22 INR Target Range - 12/06/21 10:22 INR 1.39 (0.8-1.3) H 12/06/21 10:22 Sodium 137 mmol/L (136-145) 12/18/21 04:27 Corrected Sodium TNP 12/18/21 04:27 Potassium 3.6 mmol/L (3.5-5.1) 12/18/21 04:27 Chloride 104 mmol/L (98-107) 12/18/21 04:27 Carbon Dioxide 25.5 mmol/L (21-32) 12/18/21 04:27 BUN 7 mg/dL (7-18) 12/18/21 04:27 Creatinine 0.46 mg/dL (0.55-1.02) L 12/18/21 04:27 Est GFR (MDRD) Af Amer > 60 (>60) 12/18/21 04:27 Est GFR (MDRD) Non-Af > 60 (>60) 12/18/21 04:27 Glucose 96 mg/dL (65-99) 12/18/21 04:27 POC Glucose (mg/dL) 116 mg/dL (65-99) H 12/18/21 11:45 Calcium 8.4 mg/dL (8.5-10.1) L 12/18/21 04:27 Corrected Calcium 9.3 mg/dL (8.5-10.1) 12/18/21 04:27 Phosphorus 3.7 mg/dL (2.6-4.7) 12/18/21 04:27 Magnesium 2.1 mg/dL (1.7-2.9) 12/18/21 04:27 Iron 16 ug/dL (50-175) L 12/08/21 14:21 TIBC 205 ug/dL (250-450) L 12/08/21 14:21 % Saturation 7.8 % (11.0-46.0) L 12/08/21 14:21 Ferritin 155 ng/mL (8-252) 12/08/21 14:21 Total Bilirubin 0.30 mg/dL (0.2-1.0) 12/18/21 04:27 AST 48 Units/L (15-37) H 12/18/21 04:27 ALT 98 Units/L (12-78) H 12/18/21 04:27 Alkaline Phosphatase 135 Units/L (46-116) H 12/18/21 04:27 Total Protein 6.3 g/dL (6.4-8.2) L 12/18/21 04:27 Albumin 2.9 g/dL (3.4-5.0) L 12/18/21 04:27 Globulin 3.4 g/dL (2.5-4.5) 12/18/21 04:27 Albumin/Globulin Ratio 0.9 Ratio (1.1-2.1) L 12/18/21 04:27 Prealbumin 21.5 mg/dL (18-35.7) 12/18/21 04:27 Hurot-4-Fqqsabnyfym 237 mg/dL (90-200) H 12/08/21 14:21 Ceruloplasmin 30 mg/dL (16-45) 12/08/21 14:21 Triglycerides 57 mg/dL (0-150) 12/18/21 04:27 Amylase 71 Units/L (25-115) 12/17/21 04:49 Lipase 304 Units/L (73-393) 12/17/21 04:49 Carcinoembryonic Ag 1.4 ng/mL (<=3.8) 12/09/21 14:36 CA 19-9 Antigen 13 U/mL (<=35) 12/09/21 14:36 TSH 3rd Generation 1.311 uIU/mL (0.358-3.74) 12/03/21 18:47 HCG, Qual Negative <10 mIU/mL 12/04/21 04:39 [place]pper 137.7 ug/dL (80.0-155.0) 12/08/21 14:21 ALLAN Screen None detected (None Detected) 12/08/21 14:21 ALLAN Titer TNP 12/08/21 14:21 ALLAN Pattern TNP 12/08/21 14:21 Anti-Mitochondrial Ab 3.6 Units (0.0-24.9) 12/08/21 14:21 Smooth Muscle Ab Titer 1:20 (<1:20) H 12/08/21 14:21 Hepatitis A IgM Ab Negative (Negative) 12/08/21 14:21 Hep Bs Antigen Negative (Negative) 12/08/21 14:21 Hep Bs Ag Confirmation TNP 12/08/21 14:21 Hep B Core IgM Ab Negative (Negative) 12/08/21 14:21 Hepatitis C Ab Index 0.12 IV 12/08/21 14:21 Hepatitis C Interp Negative (Negative) 12/08/21 14:21 Hepatitis Interpret See note 12/08/21 14:21 SARS CoV-2 RNA Rapid MACK Negative (NEGATIVE) 12/03/21 20:49 Tissue Pathology To follow 12/06/21 08:27 Plan (1) Acute hypotension: Status: Resolved Plan: IV fluids (2) Hypokalemia: Status: Acute Plan: replace (3) Abdominal pain: Status: Acute (4) Anemia: Status: Acute (5) Hypertensive urgency: Status: Acute (6) Gastritis: Status: Acute Plan: Pending EGD (7) Nausea & vomiting: Status: Acute Plan: I will recommend to continue with IV Protonix. I will recommend to give Reglan 10 mg four times a day. A repeat CT of the abdomen with contrast will be ordered. Cont NG tube with intermittent suctioning. Serological workup for liver diseases will be ordered. The patient will need further workup once she is more stable from a postoperative standpoint for which I have recommended outpatient follow up. Dulcolax Supp (8) Cholecystitis: Status: Acute Plan: IV fluids, IV abx, Nausea and pain control Patient unerwent EGD with Dr. Masters-see report. As per surgery team NGT LIWS-as per surgery (9) Pneumonia: Status: Acute Plan: Improved IV abx (10) Pancreatitis: Status: Acute Plan: Improving
[2021-12-18] MEDS: CLINIMIX 4.25 %/10 % 1,000 ML with MVI INJ (ADULT) 10 ML, POTASSIUM CHLORIDE INJ 20 MEQ... IV SCH ×3 (18:40)
[2021-12-18] MEDS: LIPOSYN III 20% 100ML 100 ML IV SCH (20:21)
[2021-12-19] MEDS: CLINIMIX 5 %/20 % 1,000 ML with MVI INJ (ADULT) 10 ML, MAGNESIUM SULFATE 50% INJ VIAL 1... IV SCH ×12 (00:25→22:26)
[2021-12-19] MEDS: D5 1/2 NS 1,000 ML 1,000 ML IV SCH ×4 (00:26→18:06)
[2021-12-19] MEDS: ATIVAN INJ 2 MG VIAL IVP PRN ×4 (00:26→22:28)
[2021-12-19] MEDS: AMBIEN PO PRN (01:33)
[2021-12-19] MEDS: DEMEROL INJ IVP PRN ×6 (01:44→22:31)
[2021-12-19 04:50] LABS: BASOPHILS # (AUTO) 0.1 X10^3/uL (0.0-0.1); EOSINOPHILS # (AUTO) 0.1 x10^3/uL (0.0-0.2); HEMATOCRIT 30.8 % (36.0-47.0); HEMOGLOBIN 10.5 g/dL (12.0-16.0); LYMPHOCYTES # (AUTO) 1.2 X10^3/uL (1.3-2.9); LYMPHOCYTES % (AUTO) 14.4 % (21.0-51.0); MEAN CORPUSCULAR VOLUME 91.2 fL (80.0-100.0); MEAN PLATELET VOLUME 8.5 fL (7.4-11.0); MONOCYTES # (AUTO) 0.6 x10^3/uL (0.3-0.8); MONOCYTES % (AUTO) 7.9 % (0.0-13.0); NEUTROPHILS % (AUTO) 75.7 % (42.0-75.0); RED BLOOD COUNT 3.38 X10^6/uL (3.5-5.4); RED CELL DISTRIBUTION WIDTH 13.5 % (11.6-16.5)
[2021-12-19 04:57] LABS: ALANINE AMINOTRANSFERASE 101 Units/L (12-78); ALBUMIN 3.1 g/dL (3.4-5.0); ALKALINE PHOSPHATASE 151 Units/L (46-116); ASPARTATE AMINO TRANSFERASE 67 Units/L (15-37); BLOOD UREA NITROGEN 6 mg/dL (7-18); CALCIUM 8.5 mg/dL (8.5-10.1); CARBON DIOXIDE 24.9 mmol/L (21-32); CHLORIDE 98 mmol/L (98-107); COR CA(FOR HYPOALB) 9.2 mg/dL (8.5-10.1); CREATININE 0.48 mg/dL (0.55-1.02); SODIUM 134 mmol/L (136-145); TOTAL PROTEIN 6.7 g/dL (6.4-8.2); eGFR NON BLACK RACES > 60 (>60)
[2021-12-19] MEDS: REGLAN INJ 10 MG VIAL IVP SCH ×4 (05:06→22:30)
[2021-12-19 06:11] LABS: PLATELET MORPHOLOGY COMMENT NORMAL (NORMAL)
[2021-12-19] MEDS: ZOFRAN INJ 4 MG VIAL IVP PRN ×3 (07:07→15:10)
[2021-12-19] MEDS: LOVENOX INJ 40 MG SYR SC SCH (08:38)
[2021-12-19] MEDS: PROTONIX INJ 40 MG VIAL IVP SCH ×2 (08:38→20:26)
[2021-12-19] MEDS: SYNTHROID INJ 100 mcg VIAL IM SCH (08:39)
[2021-12-19] MEDS: K-DUR TAB 20 MEQ PO PRN (08:39)
[2021-12-19] MEDS ORDERED: NS 100 ML IV 100 ML ONE (10:00)
--- NOTE | 2021-12-19 13:02 | CT ---
HISTORYABD PAIN, N/V, FOLLOW UPSTUDYCT abdomen and pelvis with IV contrastCOMPARISONX-ray 12/14/[address] 12/08/2021TECHNIQUEMultiple axial images of the abdomen and pelvis were obtained from the lung bases to the pubic symphysis after the administration of IV contrast. 100 cc Omnipaque 350 IV contrast. Dose reduction techniques including Automated Exposure Control (AEC) and adjustment of mA and kV were utilized.FINDINGSThe visualized portions of the lung bases reveal near complete resolution of the densities in the right lower lobe compared to prior CT.The liver and spleen are normal in size. Probable 3 mm cyst in the left hepatic lobe superiorly is too small to fully characterizePrior cholecystectomy. Slight biliary ductal prominence is normal postsurgical appearance.There is slight prominence of the proximal pancreatic duct. There is likely wall thickening in the descending and transverse duodenum near the head of the pancreas. This appears separate from the pancreas, though.The adrenal glands appear normal.No hydronephrosis or renal abnormality is seen. Ureters and bladder appear normal. Phlebolith is seen in the right-side of the pelvis.Eccentric wall thickening is suspected in the distal descending and proximal transverse duodenum. This appears greatest along the medial and inferior aspect of the wall. Consider duodenal malignancy but duodenitis and ulceration may cause the appearance. There is a 3.7 x 1.3 cm slightly complex fluid density associated with the inferior aspect of this region that could be necrotic malignancy or associated with ulceration. Pancreatic malignancy is not completely excluded but is not thought likely. There is persistent distention of the stomach with GI contrast, air and fluid, similar to prior CT. There appears to be malrotation as the duodenum does not appear to cross the ligament of Treitz. No small bowel dilation is seen . Appendix is likely normal.No adnexal masses are seen.Abdominal aorta is normal in size.No suspicious lymphadenopathy.Mild free fluid is seen in the pelvis. No free intraperitoneal air is seen.No acute bony abnormality is seen.IMPRESSIONDuodenitis or possible duodenal malignancy. Area of necrosis or ulceration is suspected along the anterior inferior aspect of the distal descending and proximal transverse duodenum. Pancreatic malignancy causing this appearance is not completely excluded but is not thought to be likely. 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
[2021-12-19] MEDS: PHENERGAN INJ 25 MG IM PRN (13:51)
--- NOTE | 2021-12-19 18:09 | DR.PROGNOT ---
Hospital Progress Notes - Progress Note for Day of: Progress Note Date: 12/19/21 - Chief Complaint Chief Complaint: vomited last night and today . abdominal and pelvic CT still showing dilated stomach and proximal DU. with inflammation of duodenal wall and collection of fluid around it .. CEA. CA 19 are normal . smal bowel endoscopy did not show neoplasm or ulceration in the duodenum .. had small BM this am. normal lytes and WBC . afebrile .. - Past Medical Family Social History Past Med/Fam/Surg Hx: No changes since H&P Allergies: Allergies No Known Drug Allergies Allergy (Verified 11/23/21 10:01) - Review Of Systems ROS: No change since H&P - Vital Signs Vital Signs: Temperature 98.3 F Pulse Rate 98 Respiratory Rate 19 Blood Pressure [Left Arm] 147/78 Blood Pressure 103/80 O2 Sat by Pulse Oximetry 98 - Physical Exam Oriented: Normal, Time, Person, Place Eyes: Normal Ear: Normal Nose: Normal Throat: Normal Respiratory: Normal Cardiovascular: Normal : Normal GI:Auscultation: Normal GI:Palpation: Normal (soft , flat abdomen .. with moderate diffuse tenderness ..BS+ ) GI: Tenderness: Diffuse (soft, flat abdomen with good bowel sounds .all incisions are clean , no infection), Moderate Skin: Decreased Turgur Musculoskeletal: Normal Psychiatric: Normal Mood Description: Calm Affect: Normal Speech Pattern: Clear, Appropriate - Laboratory and Diagnostics Result Diagrams: 12/19/21 04:24 12/19/21 04:24 Labs: 12/05/21 17:42 Blood Blood Culture - Final 12/05/21 17:32 Blood Blood Culture - Final Laboratory WBC 8.0 X10^3/uL (3.6-10.0) 12/19/21 04:24 RBC 3.38 X10^6/uL (3.5-5.4) L 12/19/21 04:24 Hgb 10.5 g/dL (12.0-16.0) L 12/19/21 04:24 Hct 30.8 % (36.0-47.0) L 12/19/21 04:24 MCV 91.2 fL (80.0-100.0) 12/19/21 04:24 MCH 31.0 pg (27.0-34.0) 12/19/21 04:24 MCHC 34.0 g/dL (33.0-35.0) 12/19/21 04:24 RDW 13.5 % (11.6-16.5) 12/19/21 04:24 Plt Count 243 X10^3/uL (150.0-450.0) 12/19/21 04:24 Plt Count Comment Adequate (ADEQUATE) 12/19/21 04:24 MPV 8.5 fL (7.4-11.0) 12/19/21 04:24 Neut % (Auto) 75.7 % (42.0-75.0) H 12/19/21 04:24 Lymph % (Auto) 14.4 % (21.0-51.0) L 12/19/21 04:24 [place] % (Auto) 7.9 % (0.0-13.0) 12/19/21 04:24 Eos % (Auto) 1.0 % (0.9-2.9) 12/19/21 04:24 Baso % (Auto) 1.0 % (0.2-1.0) 12/19/21 04:24 Neut # (Auto) 6.0 x10^3/uL (2.2-4.8) H 12/19/21 04:24 Lymph # (Auto) 1.2 X10^3/uL (1.3-2.9) L 12/19/21 04:24 [place] # (Auto) 0.6 x10^3/uL (0.3-0.8) 12/19/21 04:24 Eos # (Auto) 0.1 x10^3/uL (0.0-0.2) 12/19/21 04:24 Baso # (Auto) 0.1 X10^3/uL (0.0-0.1) 12/19/21 04:24 Absolute Nucleated RBC 0.0 /100WBC 12/19/21 04:24 Total Counted 100 12/19/21 04:24 Neutrophils % (Manual) 80 % (39-76) H 12/19/21 04:24 Band Neutrophils % 1 % (0-10) 12/16/21 04:30 Lymphocytes % (Manual) 13 % (13-43) 12/19/21 04:24 Monocytes % (Manual) 5 % (4-9) 12/19/21 04:24 Eosinophils % (Manual) 2 % (0-6) 12/19/21 04:24 Basophils % (Manual) 1 % (0-1) 12/16/21 04:30 Metamyelocytes % 2 12/16/21 04:30 Plt Morphology Comment Normal (NORMAL) 12/19/21 04:24 RBC Morphology Normal (NORMAL) 12/19/21 04:24 PT 16.4 SECONDS (11.8-14.3) 12/06/21 10:22 INR Target Range - 12/06/21 10:22 INR 1.39 (0.8-1.3) H 12/06/21 10:22 Sodium 134 mmol/L (136-145) L 12/19/21 04:24 Corrected Sodium TNP 12/19/21 04:24 Potassium 3.7 mmol/L (3.5-5.1) 12/19/21 04:24 Chloride 98 mmol/L (98-107) 12/19/21 04:24 Carbon Dioxide 24.9 mmol/L (21-32) 12/19/21 04:24 BUN 6 mg/dL (7-18) L 12/19/21 04:24 Creatinine 0.48 mg/dL (0.55-1.02) L 12/19/21 04:24 Est GFR (MDRD) Af Amer > 60 (>60) 12/19/21 04:24 Est GFR (MDRD) Non-Af > 60 (>60) 12/19/21 04:24 Glucose 107 mg/dL (65-99) H 12/19/21 04:24 POC Glucose (mg/dL) 109 mg/dL (65-99) H 12/19/21 03:10 Calcium 8.5 mg/dL (8.5-10.1) 12/19/21 04:24 Corrected Calcium 9.2 mg/dL (8.5-10.1) 12/19/21 04:24 Phosphorus 3.7 mg/dL (2.6-4.7) 12/18/21 04:27 Magnesium 2.1 mg/dL (1.7-2.9) 12/18/21 04:27 Iron 16 ug/dL (50-175) L 12/08/21 14:21 TIBC 205 ug/dL (250-450) L 12/08/21 14:21 % Saturation 7.8 % (11.0-46.0) L 12/08/21 14:21 Ferritin 155 ng/mL (8-252) 12/08/21 14:21 Total Bilirubin 0.40 mg/dL (0.2-1.0) 12/19/21 04:24 AST 67 Units/L (15-37) H 12/19/21 04:24 ALT 101 Units/L (12-78) H 12/19/21 04:24 Alkaline Phosphatase 151 Units/L (46-116) H 12/19/21 04:24 Total Protein 6.7 g/dL (6.4-8.2) 12/19/21 04:24 Albumin 3.1 g/dL (3.4-5.0) L 12/19/21 04:24 Globulin 3.6 g/dL (2.5-4.5) 12/19/21 04:24 Albumin/Globulin Ratio 0.9 Ratio (1.1-2.1) L 12/19/21 04:24 Prealbumin 21.5 mg/dL (18-35.7) 12/18/21 04:27 Hmypk-8-Hwsuxycyzam 237 mg/dL (90-200) H 12/08/21 14:21 Ceruloplasmin 30 mg/dL (16-45) 12/08/21 14:21 Triglycerides 57 mg/dL (0-150) 12/18/21 04:27 Amylase 71 Units/L (25-115) 12/17/21 04:49 Lipase 304 Units/L (73-393) 12/17/21 04:49 Carcinoembryonic Ag 1.4 ng/mL (<=3.8) 12/09/21 14:36 CA 19-9 Antigen 13 U/mL (<=35) 12/09/21 14:36 CA 125 Antigen 54 U/mL (<=38) H 12/09/21 14:36 TSH 3rd Generation 1.311 uIU/mL (0.358-3.74) 12/03/21 18:47 HCG, Qual Negative <10 mIU/mL 12/04/21 04:39 Copper 137.7 ug/dL (80.0-155.0) 12/08/21 14:21 ALLAN Screen None detected (None Detected) 12/08/21 14:21 ALLAN Titer TNP 12/08/21 14:21 ALLAN Pattern TNP 12/08/21 14:21 Anti-Mitochondrial Ab 3.6 Units (0.0-24.9) 12/08/21 14:21 Smooth Muscle Ab Titer 1:20 (<1:20) H 12/08/21 14:21 Hepatitis A IgM Ab Negative (Negative) 12/08/21 14:21 Hep Bs Antigen Negative (Negative) 12/08/21 14:21 Hep Bs Ag Confirmation TNP 12/08/21 14:21 Hep B Core IgM Ab Negative (Negative) 12/08/21 14:21 Hepatitis C Ab Index 0.12 IV 12/08/21 14:21 Hepatitis C Interp Negative (Negative) 12/08/21 14:21 Hepatitis Interpret See note 12/08/21 14:21 SARS CoV-2 RNA Rapid MACK Negative (NEGATIVE) 12/03/21 20:49 Tissue Pathology To follow 12/06/21 08:27 - Assessment and Plan 1: partial distal duodenal obstruction of unknown etiology . s/p lap [place] . if persist will transfer tomorrow . - Problem Patient Problems: Patient Problems Acute hypotension (Resolved) I95.9 Hypokalemia (Acute) E87.6 Hypokalemia (Acute) E87.6 Abdominal pain (Acute) R10.9 Acute epigastric pain (Acute) R10.13 Anemia (Acute) D64.9 Hypertensive urgency (Acute) I16.0 Gastritis (Acute) K29.70 Nausea & vomiting (Acute) R11.2 Abnormal LFTs (Acute) R79.89 Cholecystitis (Acute) K81.9 Pneumonia (Acute) J18.9 Pancreatitis (Acute) K85.90
[2021-12-19] MEDS ORDERED: DRUG FILTER EXTENSION SET ONE (19:58)
[2021-12-19] MEDS: LIPOSYN III 20% 100ML 100 ML IV SCH (20:27)
[2021-12-20] MEDS: AMBIEN PO PRN (00:25)
[2021-12-20] MEDS: DEMEROL INJ IVP PRN ×5 (02:34→20:14)
[2021-12-20] MEDS: D5 1/2 NS 1,000 ML 1,000 ML IV SCH ×3 (03:14→18:24)
[2021-12-20] MEDS: REGLAN INJ 10 MG VIAL IVP SCH ×3 (04:52→16:20)
[2021-12-20 05:13] LABS: BASOPHILS % (AUTO) 0.6 % (0.2-1.0); EOSINOPHILS # (AUTO) 0.2 x10^3/uL (0.0-0.2); EOSINOPHILS % (AUTO) 2.3 % (0.9-2.9); HEMATOCRIT 27.8 % (36.0-47.0); HEMOGLOBIN 9.4 g/dL (12.0-16.0); LYMPHOCYTES # (AUTO) 0.9 X10^3/uL (1.3-2.9); LYMPHOCYTES % (AUTO) 10.8 % (21.0-51.0); MEAN CORPUSCULAR HEMOGLOBIN 31.1 pg (27.0-34.0); MEAN CORPUSCULAR VOLUME 91.5 fL (80.0-100.0); MEAN PLATELET VOLUME 8.2 fL (7.4-11.0); MONOCYTES # (AUTO) 0.7 x10^3/uL (0.3-0.8); MONOCYTES % (AUTO) 7.9 % (0.0-13.0); NEUTROPHILS # (AUTO) 6.5 x10^3/uL (2.2-4.8); NEUTROPHILS % (AUTO) 78.4 % (42.0-75.0); RED BLOOD COUNT 3.04 X10^6/uL (3.5-5.4); RED CELL DISTRIBUTION WIDTH 13.7 % (11.6-16.5); WHITE BLOOD COUNT 8.3 X10^3/uL (3.6-10.0)
[2021-12-20 05:33] LABS: ALANINE AMINOTRANSFERASE 99 Units/L (12-78); ALBUMIN 2.7 g/dL (3.4-5.0); ALKALINE PHOSPHATASE 134 Units/L (46-116); ASPARTATE AMINO TRANSFERASE 65 Units/L (15-37); BLOOD UREA NITROGEN 8 mg/dL (7-18); CARBON DIOXIDE 26.2 mmol/L (21-32); CHLORIDE 99 mmol/L (98-107); CREATININE 0.51 mg/dL (0.55-1.02); SODIUM 133 mmol/L (136-145); TOTAL PROTEIN 5.9 g/dL (6.4-8.2); eGFR NON BLACK RACES > 60 (>60)
[2021-12-20] MEDS: ATIVAN INJ 2 MG VIAL IVP PRN ×3 (06:44→20:14)
[2021-12-20] MEDS: ZOFRAN INJ 4 MG VIAL IVP PRN ×2 (06:45→14:51)
[2021-12-20] MEDS: LOVENOX INJ 40 MG SYR SC SCH (08:17)
[2021-12-20] MEDS: K-DUR TAB 20 MEQ PO PRN (08:18)
[2021-12-20] MEDS: SYNTHROID INJ 100 mcg VIAL IM SCH (08:18)
[2021-12-20] MEDS: PROTONIX INJ 40 MG VIAL IVP SCH ×2 (08:18→20:14)
--- NOTE | 2021-12-20 12:55 | PCM.PROG ---
Progress Note - Progress Note for Day of Date of Exam: 12/19/21 - Subjective Subjective: Patient is a 46 yo female who was admitted as per HPI. She is status post lap verona. Patient underwent EGD last week with Dr. Lin; see report, report reviewed. NGT has been removed. Patient continues to experience pain in abdomen. Patient also continues to have vomiting. Patient reports passing flatus and having BMs. Patient needs an UGI series with SBFT however this testing is not performed at this facility. Due to complexting of situation and not improvment with continued pain and emesis production will plan for transfer to tertiary center. No questions at present. Patient is receiving TPN. She is currently receiving IVF, antiemetics, and IV demerol prn for pain. Antibiotics: IV Zosyn. Will follow up on Surgery's recommendation and plan. Otherwise will continue with current treatment plan. Continue to monitor and follow up labs/imaging in the morning. This morning the patient reports vomiting about 300 mL of liquid yesterday afternoon. Dr. Finney saw her and plans on ad vancing her diet. The patient does report tolerating by mouth intake. However she is still getting nauseated. Her hemoglobin dropped to 9.8 this morning. Possible discharge home in the morning. - Past Medical Family Social History Past Med/Fam/Surg Hx: No changes since H&P Allergies: Allergies No Known Drug Allergies Allergy (Verified 11/23/21 10:01) - Review of Systems ROS: No change since H&P - Vital Signs and I&O's Vital Signs: Temperature 98.1 F Pulse Rate 90 Respiratory Rate 15 Blood Pressure [Left Arm] 147/78 Blood Pressure 114/67 O2 Sat by Pulse Oximetry 98 Intake and Output: Intake & Output 12/17/21 12/18/21 12/19/21 12/20/21 23:59 23:59 23:59 23:59 Intake Total 3939 / 3939 3962 / 3962 3911 / 3911 1216 / 1216 Output Total 500 / 500 700 / 700 1500 / 1500 Balance 3439 / 3439 3262 / 3262 2411 / 2411 1216 / 1216 - Physical Exam Oriented: Normal, Time, Person, Place Eyes: Normal Ear: Normal Nose: Normal Throat: Normal Respiratory: Normal Cardiovascular: Normal : Normal Auscultation: Bowel Sounds: Normal Tenderness: Diffuse (soft, flat abdomen with good bowel sounds .all incisions are clean , no infection), Moderate Skin: Decreased Turgur Musculoskeletal: Normal Psychiatric: Normal Mood Description: Calm Affect: Normal Speech Pattern: Clear, Appropriate - Laboratory and Diagnostics Result Diagrams: 12/20/21 04:50 12/20/21 04:50 Labs: 12/05/21 17:42 Blood Blood Culture - Final 12/05/21 17:32 Blood Blood Culture - Final Laboratory WBC 8.3 X10^3/uL (3.6-10.0) 12/20/21 04:50 RBC 3.04 X10^6/uL (3.5-5.4) L 12/20/21 04:50 Hgb 9.4 g/dL (12.0-16.0) L 12/20/21 04:50 Hct 27.8 % (36.0-47.0) L 12/20/21 04:50 MCV 91.5 fL (80.0-100.0) 12/20/21 04:50 MCH 31.1 pg (27.0-34.0) 12/20/21 04:50 MCHC 34.0 g/dL (33.0-35.0) 12/20/21 04:50 RDW 13.7 % (11.6-16.5) 12/20/21 04:50 Plt Count 208 X10^3/uL (150.0-450.0) 12/20/21 04:50 Plt Count Comment Adequate (ADEQUATE) 12/19/21 04:24 MPV 8.2 fL (7.4-11.0) 12/20/21 04:50 Neut % (Auto) 78.4 % (42.0-75.0) H 12/20/21 04:50 Lymph % (Auto) 10.8 % (21.0-51.0) L 12/20/21 04:50 [place] % (Auto) 7.9 % (0.0-13.0) 12/20/21 04:50 Eos % (Auto) 2.3 % (0.9-2.9) 12/20/21 04:50 Baso % (Auto) 0.6 % (0.2-1.0) 12/20/21 04:50 Neut # (Auto) 6.5 x10^3/uL (2.2-4.8) H 12/20/21 04:50 Lymph # (Auto) 0.9 X10^3/uL (1.3-2.9) L 12/20/21 04:50 [place] # (Auto) 0.7 x10^3/uL (0.3-0.8) 12/20/21 04:50 Eos # (Auto) 0.2 x10^3/uL (0.0-0.2) 12/20/21 04:50 Baso # (Auto) 0.0 X10^3/uL (0.0-0.1) 12/20/21 04:50 Absolute Nucleated RBC 0.0 /100WBC 12/20/21 04:50 Total Counted 100 12/19/21 04:24 Neutrophils % (Manual) 80 % (39-76) H 12/19/21 04:24 Band Neutrophils % 1 % (0-10) 12/16/21 04:30 Lymphocytes % (Manual) 13 % (13-43) 12/19/21 04:24 Monocytes % (Manual) 5 % (4-9) 12/19/21 04:24 Eosinophils % (Manual) 2 % (0-6) 12/19/21 04:24 Basophils % (Manual) 1 % (0-1) 12/16/21 04:30 Metamyelocytes % 2 12/16/21 04:30 Plt Morphology Comment Normal (NORMAL) 12/19/21 04:24 RBC Morphology Normal (NORMAL) 12/19/21 04:24 PT 16.4 SECONDS (11.8-14.3) 12/06/21 10:22 INR Target Range - 12/06/21 10:22 INR 1.39 (0.8-1.3) H 12/06/21 10:22 Sodium 133 mmol/L (136-145) L 12/20/21 04:50 Corrected Sodium TNP 12/20/21 04:50 Potassium 3.6 mmol/L (3.5-5.1) 12/20/21 04:50 Chloride 99 mmol/L (98-107) 12/20/21 04:50 Carbon Dioxide 26.2 mmol/L (21-32) 12/20/21 04:50 BUN 8 mg/dL (7-18) 12/20/21 04:50 Creatinine 0.51 mg/dL (0.55-1.02) L 12/20/21 04:50 Est GFR (MDRD) Af Amer > 60 (>60) 12/20/21 04:50 Est GFR (MDRD) Non-Af > 60 (>60) 12/20/21 04:50 Glucose 107 mg/dL (65-99) H 12/20/21 04:50 POC Glucose (mg/dL) 107 mg/dL (65-99) H 12/20/21 03:13 Calcium 8.0 mg/dL (8.5-10.1) L 12/20/21 04:50 Corrected Calcium 9.0 mg/dL (8.5-10.1) 12/20/21 04:50 Phosphorus 3.7 mg/dL (2.6-4.7) 12/18/21 04:27 Magnesium 2.1 mg/dL (1.7-2.9) 12/18/21 04:27 Iron 16 ug/dL (50-175) L 12/08/21 14:21 TIBC 205 ug/dL (250-450) L 12/08/21 14:21 % Saturation 7.8 % (11.0-46.0) L 12/08/21 14:21 Ferritin 155 ng/mL (8-252) 12/08/21 14:21 Total Bilirubin 0.40 mg/dL (0.2-1.0) 12/20/21 04:50 AST 65 Units/L (15-37) H 12/20/21 04:50 ALT 99 Units/L (12-78) H 12/20/21 04:50 Alkaline Phosphatase 134 Units/L (46-116) H 12/20/21 04:50 Total Protein 5.9 g/dL (6.4-8.2) L 12/20/21 04:50 Albumin 2.7 g/dL (3.4-5.0) L 12/20/21 04:50 Globulin 3.2 g/dL (2.5-4.5) 12/20/21 04:50 Albumin/Globulin Ratio 0.8 Ratio (1.1-2.1) L 12/20/21 04:50 Prealbumin 21.5 mg/dL (18-35.7) 12/18/21 04:27 Jqybc-8-Oluqovhpcsj 237 mg/dL (90-200) H 12/08/21 14:21 Ceruloplasmin 30 mg/dL (16-45) 12/08/21 14:21 Triglycerides 57 mg/dL (0-150) 12/18/21 04:27 Amylase 71 Units/L (25-115) 12/17/21 04:49 Lipase 304 Units/L (73-393) 12/17/21 04:49 Carcinoembryonic Ag 1.4 ng/mL (<=3.8) 12/09/21 14:36 CA 19-9 Antigen 13 U/mL (<=35) 12/09/21 14:36 CA 125 Antigen 54 U/mL (<=38) H 12/09/21 14:36 TSH 3rd Generation 1.311 uIU/mL (0.358-3.74) 12/03/21 18:47 HCG, Qual Negative <10 mIU/mL 12/04/21 04:39 Copper 137.7 ug/dL (80.0-155.0) 12/08/21 14:21 ALLAN Screen None detected (None Detected) 12/08/21 14:21 ALLAN Titer TNP 12/08/21 14:21 ALLAN Pattern TNP 12/08/21 14:21 Anti-Mitochondrial Ab 3.6 Units (0.0-24.9) 12/08/21 14:21 Smooth Muscle Ab Titer 1:20 (<1:20) H 12/08/21 14:21 Hepatitis A IgM Ab Negative (Negative) 12/08/21 14:21 Hep Bs Antigen Negative (Negative) 12/08/21 14:21 Hep Bs Ag Confirmation TNP 12/08/21 14:21 Hep B Core IgM Ab Negative (Negative) 12/08/21 14:21 Hepatitis C Ab Index 0.12 IV 12/08/21 14:21 Hepatitis C Interp Negative (Negative) 12/08/21 14:21 Hepatitis Interpret See note 12/08/21 14:21 SARS CoV-2 RNA Rapid MACK Negative (NEGATIVE) 12/03/21 20:49 Tissue Pathology To follow 12/06/21 08:27 - Plan (1) Acute hypotension Status: Resolved Plan: IV fluids (2) Hypokalemia Status: Resolved Plan: replace (3) Abdominal pain Status: Acute Plan: Continuing to require IV pain and nausea meds. (4) Anemia Status: Acute (5) Hypertensive urgency Status: Acute Plan: Improving (6) Gastritis Status: Acute (7) Nausea & vomiting Status: Acute (8) Cholecystitis Status: Acute Plan: IV fluids, IV abx, Nausea and pain control. Patient unerwent EGD with Dr. Masters and Riley-see report. As per surgery team (9) Pneumonia Status: Resolved Plan: Improved. IV abx (10) Pancreatitis Status: Acute Plan: Continues to require IV pain meds (11) Partial small bowel obstruction Status: Acute Plan: With patient's continued pain and nausea it is likely patient has some degree of SBO. Needs further testing not provided at this facility. Plan for transfer to tertiary center.
--- NOTE | 2021-12-20 13:00 | PCM.PROG ---
Progress Note - Subjective Subjective: Patient is a 46 yo female who was admitted as per HPI. She is status post lap verona. Patient underwent EGD last week with Dr. Lin; see report, report reviewed. NGT has been removed. Patient continues to experience pain in abdomen and continues to require IV pain meds. Patient also continues to have vomiting. Patient reports passing flatus and having BMs; reports BMS as loose an d only daily. Patient needs an UGI series with SBFT however this testing is not performed at this facility. Due to complexting of situation and no improvment with continued pain and emesis production will plan for transfer to tertiary center. No questions at present. Patient is receiving TPN. She is currently receiving IVF, antiemetics, and IV demerol prn for pain. Antibiotics: IV Zosyn. Will follow up on Surgery's recommendation and plan. Otherwise will continue with current treatment plan. Continue to monitor and follow up labs/imaging in the morning. - Past Medical Family Social History Past Med/Fam/Surg Hx: No changes since H&P Allergies: Allergies No Known Drug Allergies Allergy (Verified 11/23/21 10:01) - Review of Systems ROS: No change since H&P - Vital Signs and I&O's Vital Signs: Temperature 98.1 F Pulse Rate 90 Respiratory Rate 15 Blood Pressure [Left Arm] 147/78 Blood Pressure 114/67 O2 Sat by Pulse Oximetry 98 Intake and Output: Intake & Output 12/17/21 12/18/21 12/19/21 12/20/21 23:59 23:59 23:59 23:59 Intake Total 3939 / 3939 3962 / 3962 3911 / 3911 1216 / 1216 Output Total 500 / 500 700 / 700 1500 / 1500 Balance 3439 / 3439 3262 / 3262 2411 / 2411 1216 / 1216 - Physical Exam Oriented: Normal, Time, Person, Place Eyes: Normal Ear: Normal Nose: Normal Throat: Normal Respiratory: Normal Cardiovascular: Normal : Normal Auscultation: Bowel Sounds: Normal Palpation: Normal Tenderness: Diffuse (soft, flat abdomen with good bowel sounds .all incisions are clean , no infection), Moderate Skin: Decreased Turgur Musculoskeletal: Normal Psychiatric: Normal Mood Description: Calm Affect: Normal Speech Pattern: Clear, Appropriate - Laboratory and Diagnostics Result Diagrams: 12/20/21 04:50 12/20/21 04:50 Labs: 12/05/21 17:42 Blood Blood Culture - Final 12/05/21 17:32 Blood Blood Culture - Final Laboratory WBC 8.3 X10^3/uL (3.6-10.0) 12/20/21 04:50 RBC 3.04 X10^6/uL (3.5-5.4) L 12/20/21 04:50 Hgb 9.4 g/dL (12.0-16.0) L 12/20/21 04:50 Hct 27.8 % (36.0-47.0) L 12/20/21 04:50 MCV 91.5 fL (80.0-100.0) 12/20/21 04:50 MCH 31.1 pg (27.0-34.0) 12/20/21 04:50 MCHC 34.0 g/dL (33.0-35.0) 12/20/21 04:50 RDW 13.7 % (11.6-16.5) 12/20/21 04:50 Plt Count 208 X10^3/uL (150.0-450.0) 12/20/21 04:50 Plt Count Comment Adequate (ADEQUATE) 12/19/21 04:24 MPV 8.2 fL (7.4-11.0) 12/20/21 04:50 Neut % (Auto) 78.4 % (42.0-75.0) H 12/20/21 04:50 Lymph % (Auto) 10.8 % (21.0-51.0) L 12/20/21 04:50 [place] % (Auto) 7.9 % (0.0-13.0) 12/20/21 04:50 Eos % (Auto) 2.3 % (0.9-2.9) 12/20/21 04:50 Baso % (Auto) 0.6 % (0.2-1.0) 12/20/21 04:50 Neut # (Auto) 6.5 x10^3/uL (2.2-4.8) H 12/20/21 04:50 Lymph # (Auto) 0.9 X10^3/uL (1.3-2.9) L 12/20/21 04:50 [place] # (Auto) 0.7 x10^3/uL (0.3-0.8) 12/20/21 04:50 Eos # (Auto) 0.2 x10^3/uL (0.0-0.2) 12/20/21 04:50 Baso # (Auto) 0.0 X10^3/uL (0.0-0.1) 12/20/21 04:50 Absolute Nucleated RBC 0.0 /100WBC 12/20/21 04:50 Total Counted 100 12/19/21 04:24 Neutrophils % (Manual) 80 % (39-76) H 12/19/21 04:24 Band Neutrophils % 1 % (0-10) 12/16/21 04:30 Lymphocytes % (Manual) 13 % (13-43) 12/19/21 04:24 Monocytes % (Manual) 5 % (4-9) 12/19/21 04:24 Eosinophils % (Manual) 2 % (0-6) 12/19/21 04:24 Basophils % (Manual) 1 % (0-1) 12/16/21 04:30 Metamyelocytes % 2 12/16/21 04:30 Plt Morphology Comment Normal (NORMAL) 12/19/21 04:24 RBC Morphology Normal (NORMAL) 12/19/21 04:24 PT 16.4 SECONDS (11.8-14.3) 12/06/21 10:22 INR Target Range - 12/06/21 10:22 INR 1.39 (0.8-1.3) H 12/06/21 10:22 Sodium 133 mmol/L (136-145) L 12/20/21 04:50 Corrected Sodium TNP 12/20/21 04:50 Potassium 3.6 mmol/L (3.5-5.1) 12/20/21 04:50 Chloride 99 mmol/L (98-107) 12/20/21 04:50 Carbon Dioxide 26.2 mmol/L (21-32) 12/20/21 04:50 BUN 8 mg/dL (7-18) 12/20/21 04:50 Creatinine 0.51 mg/dL (0.55-1.02) L 12/20/21 04:50 Est GFR (MDRD) Af Amer > 60 (>60) 12/20/21 04:50 Est GFR (MDRD) Non-Af > 60 (>60) 12/20/21 04:50 Glucose 107 mg/dL (65-99) H 12/20/21 04:50 POC Glucose (mg/dL) 107 mg/dL (65-99) H 12/20/21 03:13 Calcium 8.0 mg/dL (8.5-10.1) L 12/20/21 04:50 Corrected Calcium 9.0 mg/dL (8.5-10.1) 12/20/21 04:50 Phosphorus 3.7 mg/dL (2.6-4.7) 12/18/21 04:27 Magnesium 2.1 mg/dL (1.7-2.9) 12/18/21 04:27 Iron 16 ug/dL (50-175) L 12/08/21 14:21 TIBC 205 ug/dL (250-450) L 12/08/21 14:21 % Saturation 7.8 % (11.0-46.0) L 12/08/21 14:21 Ferritin 155 ng/mL (8-252) 12/08/21 14:21 Total Bilirubin 0.40 mg/dL (0.2-1.0) 12/20/21 04:50 AST 65 Units/L (15-37) H 12/20/21 04:50 ALT 99 Units/L (12-78) H 12/20/21 04:50 Alkaline Phosphatase 134 Units/L (46-116) H 12/20/21 04:50 Total Protein 5.9 g/dL (6.4-8.2) L 12/20/21 04:50 Albumin 2.7 g/dL (3.4-5.0) L 12/20/21 04:50 Globulin 3.2 g/dL (2.5-4.5) 12/20/21 04:50 Albumin/Globulin Ratio 0.8 Ratio (1.1-2.1) L 12/20/21 04:50 Prealbumin 21.5 mg/dL (18-35.7) 12/18/21 04:27 Vbfix-4-Abdsfvwfctj 237 mg/dL (90-200) H 12/08/21 14:21 Ceruloplasmin 30 mg/dL (16-45) 12/08/21 14:21 Triglycerides 57 mg/dL (0-150) 12/18/21 04:27 Amylase 71 Units/L (25-115) 12/17/21 04:49 Lipase 304 Units/L (73-393) 12/17/21 04:49 Carcinoembryonic Ag 1.4 ng/mL (<=3.8) 12/09/21 14:36 CA 19-9 Antigen 13 U/mL (<=35) 12/09/21 14:36 CA 125 Antigen 54 U/mL (<=38) H 12/09/21 14:36 TSH 3rd Generation 1.311 uIU/mL (0.358-3.74) 12/03/21 18:47 HCG, Qual Negative <10 mIU/mL 12/04/21 04:39 Copper 137.7 ug/dL (80.0-155.0) 12/08/21 14:21 ALLAN Screen None detected (None Detected) 12/08/21 14:21 ALLAN Titer TNP 12/08/21 14:21 ALLAN Pattern TNP 12/08/21 14:21 Anti-Mitochondrial Ab 3.6 Units (0.0-24.9) 12/08/21 14:21 Smooth Muscle Ab Titer 1:20 (<1:20) H 12/08/21 14:21 Hepatitis A IgM Ab Negative (Negative) 12/08/21 14:21 Hep Bs Antigen Negative (Negative) 12/08/21 14:21 Hep Bs Ag Confirmation TNP 12/08/21 14:21 Hep B Core IgM Ab Negative (Negative) 12/08/21 14:21 Hepatitis C Ab Index 0.12 IV 12/08/21 14:21 Hepatitis C Interp Negative (Negative) 12/08/21 14:21 Hepatitis Interpret See note 12/08/21 14:21 SARS CoV-2 RNA Rapid MACK Negative (NEGATIVE) 12/03/21 20:49 Tissue Pathology To follow 12/06/21 08:27 - Plan (1) Acute hypotension Status: Resolved Plan: IV fluids (2) Hypokalemia Status: Resolved Plan: replace (3) Abdominal pain Status: Acute Plan: Continuing to require IV pain and nausea meds. (4) Anemia Status: Acute (5) Hypertensive urgency Status: Acute Plan: Improving (6) Gastritis Status: Acute Plan: Pending EGD (7) Nausea & vomiting Status: Acute Plan: I will recommend to continue with IV Protonix. I will recommend to give Reglan 10 mg four times a day. A repeat CT of the abdomen with contrast will be ordered. Cont NG tube with intermittent suctioning. Serological workup for liver diseases will be ordered. The patient will need further workup once she is more stable from a postoperative standpoint for which I have recommended outpatient follow up. Dulcolax Supp (8) Cholecystitis Status: Acute Plan: IV fluids, IV abx, Nausea and pain control. Patient unerwent EGD with Dr. Masters and Gabyan-see report. As per surgery team (9) Pneumonia Status: Resolved Plan: Improved. IV abx (10) Pancreatitis Status: Acute Plan: Continues to require IV pain meds (11) Partial small bowel obstruction Status: Acute Plan: With patient's continued pain and nausea it is likely patient has some degree of SBO. Needs further testing not provided at this facility. Plan for transfer to tertiary center.
[2021-12-20] MEDS: LIPOSYN III 20% 100ML 100 ML IV SCH (20:14)
[2021-12-20] MEDS: CLINIMIX 5 %/20 % 1,000 ML with MVI INJ (ADULT) 10 ML, MAGNESIUM SULFATE 50% INJ VIAL 1... IV SCH ×4 (20:14)
[2021-12-21] MEDS: REGLAN INJ 10 MG VIAL IVP SCH ×3 (00:10→11:13)
[2021-12-21] MEDS: DEMEROL INJ IVP PRN ×4 (00:28→13:43)
[2021-12-21] MEDS: AMBIEN PO PRN (00:30)
[2021-12-21] MEDS: D5 1/2 NS 1,000 ML 1,000 ML IV SCH ×2 (04:29→11:39)
[2021-12-21] MEDS: ATIVAN INJ 2 MG VIAL IVP PRN ×2 (04:40→11:39)
[2021-12-21 05:09] LABS: BASOPHILS % (AUTO) 0.8 % (0.2-1.0); EOSINOPHILS # (AUTO) 0.2 x10^3/uL (0.0-0.2); HEMATOCRIT 26.7 % (36.0-47.0); HEMOGLOBIN 9.2 g/dL (12.0-16.0); LYMPHOCYTES # (AUTO) 0.9 X10^3/uL (1.3-2.9); LYMPHOCYTES % (AUTO) 15.5 % (21.0-51.0); MEAN CORPUSCULAR HEMOGLOBIN 31.4 pg (27.0-34.0); MEAN CORPUSCULAR HGB CONC 34.6 g/dL (33.0-35.0); MEAN CORPUSCULAR VOLUME 90.7 fL (80.0-100.0); MEAN PLATELET VOLUME 8.9 fL (7.4-11.0); MONOCYTES # (AUTO) 0.6 x10^3/uL (0.3-0.8); MONOCYTES % (AUTO) 10.9 % (0.0-13.0); NEUTROPHILS % (AUTO) 69.8 % (42.0-75.0); RED BLOOD COUNT 2.94 X10^6/uL (3.5-5.4); RED CELL DISTRIBUTION WIDTH 13.7 % (11.6-16.5); WHITE BLOOD COUNT 5.8 X10^3/uL (3.6-10.0)
[2021-12-21 05:24] LABS: ALANINE AMINOTRANSFERASE 114 Units/L (12-78); ALBUMIN 2.7 g/dL (3.4-5.0); ALKALINE PHOSPHATASE 143 Units/L (46-116); AMYLASE 66 Units/L (25-115); ASPARTATE AMINO TRANSFERASE 80 Units/L (15-37); BLOOD UREA NITROGEN 8 mg/dL (7-18); CARBON DIOXIDE 25.7 mmol/L (21-32); CHLORIDE 101 mmol/L (98-107); CREATININE 0.54 mg/dL (0.55-1.02); LIPASE 293 Units/L (73-393); SODIUM 133 mmol/L (136-145); TOTAL PROTEIN 5.9 g/dL (6.4-8.2); eGFR NON BLACK RACES > 60 (>60)
[2021-12-21] MEDS: LOVENOX INJ 40 MG SYR SC SCH (09:14)
[2021-12-21] MEDS: PROTONIX INJ 40 MG VIAL IVP SCH (09:15)
[2021-12-21] MEDS: SYNTHROID INJ 100 mcg VIAL IM SCH (09:22)
--- NOTE | 2021-12-21 14:42 | DR.PROGNOT ---
Hospital Progress Notes - Progress Note for Day of: Progress Note Date: 12/21/21 - Chief Complaint Chief Complaint: feeling much better today .. no vomiting for the last 2 days . no nauea .. tolerateg smqall meals .. still having moderate abdominal pain .. - Past Medical Family Social History Past Med/Fam/Surg Hx: No changes since H&P Allergies: Allergies No Known Drug Allergies Allergy (Verified 11/23/21 10:01) - Review Of Systems ROS: No change since H&P - Vital Signs Vital Signs: Temperature 97.8 F Pulse Rate 91 Respiratory Rate 19 Blood Pressure [Left Arm] 147/78 Blood Pressure 131/88 O2 Sat by Pulse Oximetry 98 - Physical Exam Oriented: Normal, Time, Person, Place Eyes: Normal Ear: Normal Nose: Normal Throat: Normal Respiratory: Normal Cardiovascular: Normal : Normal GI:Auscultation: Normal GI:Palpation: Normal GI: Tenderness: Diffuse (soft, flat abdomen with good bowel sounds .all incisions are clean , no infection), Moderate Skin: Decreased Turgur Musculoskeletal: Normal Psychiatric: Normal Mood Description: Calm Affect: Normal Speech Pattern: Clear, Appropriate - Laboratory and Diagnostics Result Diagrams: 12/21/21 04:00 12/21/21 04:00 Labs: 12/05/21 17:42 Blood Blood Culture - Final 12/05/21 17:32 Blood Blood Culture - Final Laboratory WBC 5.8 X10^3/uL (3.6-10.0) 12/21/21 04:00 RBC 2.94 X10^6/uL (3.5-5.4) L 12/21/21 04:00 Hgb 9.2 g/dL (12.0-16.0) L 12/21/21 04:00 Hct 26.7 % (36.0-47.0) L 12/21/21 04:00 MCV 90.7 fL (80.0-100.0) 12/21/21 04:00 MCH 31.4 pg (27.0-34.0) 12/21/21 04:00 MCHC 34.6 g/dL (33.0-35.0) 12/21/21 04:00 RDW 13.7 % (11.6-16.5) 12/21/21 04:00 Plt Count 205 X10^3/uL (150.0-450.0) 12/21/21 04:00 Plt Count Comment Adequate (ADEQUATE) 12/19/21 04:24 MPV 8.9 fL (7.4-11.0) 12/21/21 04:00 Neut % (Auto) 69.8 % (42.0-75.0) 12/21/21 04:00 Lymph % (Auto) 15.5 % (21.0-51.0) L 12/21/21 04:00 [place] % (Auto) 10.9 % (0.0-13.0) 12/21/21 04:00 Eos % (Auto) 3.0 % (0.9-2.9) H 12/21/21 04:00 Baso % (Auto) 0.8 % (0.2-1.0) 12/21/21 04:00 Neut # (Auto) 4.0 x10^3/uL (2.2-4.8) 12/21/21 04:00 Lymph # (Auto) 0.9 X10^3/uL (1.3-2.9) L 12/21/21 04:00 [place] # (Auto) 0.6 x10^3/uL (0.3-0.8) 12/21/21 04:00 Eos # (Auto) 0.2 x10^3/uL (0.0-0.2) 12/21/21 04:00 Baso # (Auto) 0.0 X10^3/uL (0.0-0.1) 12/21/21 04:00 Absolute Nucleated RBC 0.0 /100WBC 12/21/21 04:00 Total Counted 100 12/19/21 04:24 Neutrophils % (Manual) 80 % (39-76) H 12/19/21 04:24 Band Neutrophils % 1 % (0-10) 12/16/21 04:30 Lymphocytes % (Manual) 13 % (13-43) 12/19/21 04:24 Monocytes % (Manual) 5 % (4-9) 12/19/21 04:24 Eosinophils % (Manual) 2 % (0-6) 12/19/21 04:24 Basophils % (Manual) 1 % (0-1) 12/16/21 04:30 Metamyelocytes % 2 12/16/21 04:30 Plt Morphology Comment Normal (NORMAL) 12/19/21 04:24 RBC Morphology Normal (NORMAL) 12/19/21 04:24 PT 16.4 SECONDS (11.8-14.3) 12/06/21 10:22 INR Target Range - 12/06/21 10: INR 1.39 (0.8-1.3) H 12/06/21 10:22 Sodium 133 mmol/L (136-145) L 12/21/21 04:00 Corrected Sodium TNP 12/21/21 04:00 Potassium 3.9 mmol/L (3.5-5.1) 12/21/21 04:00 Chloride 101 mmol/L (98-107) 12/21/21 04:00 Carbon Dioxide 25.7 mmol/L (21-32) 12/21/21 04:00 BUN 8 mg/dL (7-18) 12/21/21 04:00 Creatinine 0.54 mg/dL (0.55-1.02) L 12/21/21 04:00 Est GFR (MDRD) Af Amer > 60 (>60) 12/21/21 04:00 Est GFR (MDRD) Non-Af > 60 (>60) 12/21/21 04:00 Glucose 90 mg/dL (65-99) 12/21/21 04:00 POC Glucose (mg/dL) 98 mg/dL (65-99) 12/21/21 11:15 Calcium 8.0 mg/dL (8.5-10.1) L 12/21/21 04:00 Corrected Calcium 9.0 mg/dL (8.5-10.1) 12/21/21 04:00 Phosphorus 3.7 mg/dL (2.6-4.7) 12/18/21 04:27 Magnesium 2.1 mg/dL (1.7-2.9) 12/18/21 04:27 Iron 16 ug/dL (50-175) L 12/08/21 14:21 TIBC 205 ug/dL (250-450) L 12/08/21 14:21 % Saturation 7.8 % (11.0-46.0) L 12/08/21 14:21 Ferritin 155 ng/mL (8-252) 12/08/21 14:21 Total Bilirubin 0.30 mg/dL (0.2-1.0) 12/21/21 04:00 AST 80 Units/L (15-37) H 12/21/21 04:00 ALT 114 Units/L (12-78) H 12/21/21 04:00 Alkaline Phosphatase 143 Units/L (46-116) H 12/21/21 04:00 Total Protein 5.9 g/dL (6.4-8.2) L 12/21/21 04:00 Albumin 2.7 g/dL (3.4-5.0) L 12/21/21 04:00 Globulin 3.2 g/dL (2.5-4.5) 12/21/21 04:00 Albumin/Globulin Ratio 0.8 Ratio (1.1-2.1) L 12/21/21 04:00 Prealbumin 21.5 mg/dL (18-35.7) 12/18/21 04:27 Sirny-7-Wmcgkhtkysu 237 mg/dL (90-200) H 12/08/21 14:21 Ceruloplasmin 30 mg/dL (16-45) 12/08/21 14:21 Triglycerides 57 mg/dL (0-150) 12/18/21 04:27 Amylase 66 Units/L (25-115) 12/21/21 04:00 Lipase 293 Units/L (73-393) 12/21/21 04:00 Carcinoembryonic Ag 1.4 ng/mL (<=3.8) 12/09/21 14:36 CA 19-9 Antigen 13 U/mL (<=35) 12/09/21 14:36 CA 125 Antigen 54 U/mL (<=38) H 12/09/21 14:36 TSH 3rd Generation 1.311 uIU/mL (0.358-3.74) 12/03/21 18:47 HCG, Qual Negative <10 mIU/mL 12/04/21 04:39 [place] 137.7 ug/dL (80.0-155.0) 12/08/21 14:21 ALLAN Screen None detected (None Detected) 12/08/21 14:21 ALLAN Titer TNP 12/08/21 14:21 ALLAN Pattern TNP 12/08/21 14:21 Anti-Mitochondrial Ab 3.6 Units (0.0-24.9) 12/08/21 14:21 Smooth Muscle Ab Titer 1:20 (<1:20) H 12/08/21 14:21 Hepatitis A IgM Ab Negative (Negative) 12/08/21 14:21 Hep Bs Antigen Negative (Negative) 12/08/21 14:21 Hep Bs Ag Confirmation TNP 12/08/21 14:21 Hep B Core IgM Ab Negative (Negative) 12/08/21 14:21 Hepatitis C Ab Index 0.12 IV 12/08/21 14:21 Hepatitis C Interp Negative (Negative) 12/08/21 14:21 Hepatitis Interpret See note 12/08/21 14:21 SARS CoV-2 RNA Rapid MACK Negative (NEGATIVE) 12/03/21 20:49 Tissue Pathology To follow 12/06/21 08:27 - Assessment and Plan 1: subsiding partial distal duodenal obstruction of unknown etiology . s/p lap [place] . subsided lapcreaqtitis .. will d/c home and follow in 2 weeks .. on Reglan 10 q 8 h PRN.. - Problem Patient Problems: Patient Problems Acute hypotension (Resolved) I95.9 Hypokalemia (Resolved) E87.6 Hypokalemia (Acute) E87.6 Abdominal pain (Acute) R10.9 Acute epigastric pain (Acute) R10.13 Anemia (Acute) D64.9 Hypertensive urgency (Acute) I16.0 Gastritis (Acute) K29.70 Nausea & vomiting (Acute) R11.2 Abnormal LFTs (Acute) R79.89 Cholecystitis (Acute) K81.9 Pneumonia (Resolved) J18.9 Pancreatitis (Acute) K85.90 Partial small bowel obstruction (Acute) K56.600
[2021-12-21 16:06] VITALS: BP 100/69
--- NOTE | 2022-02-28 10:40 | PCM.DCPLAN ---
Discharge Plan - Discharge Plan Hospital Course: Admit date 12/03/21 Discharge date 12/21/21 DOS 12/21/21 Admit Diagnosis(1) Acute epigastric pain (2) Abdominal pain (3) Hypertensive urgency (4) Gastritis Discharge Diagnosis(1) Acute hypotension (2) Hypokalemia (3) Abdominal pain (4) Anemia (5) Hypertensive urgency (6) Gastritis (7) Nausea & vomiting (8) Cholecystitis (9) Pneumonia (10) Pancreatitis (11) Partial small bowel obstruction Hospital Course The patient is a 46-year-old white female who presented to the [facility] emergency room complaining of diffuse abdominal pain which was worse involving the epigastric and right upper quadrant region. The patient presented to the [facility] emergency room approximately 1-2 weeks ago at which time she was complaining of similar abdominal pain associated with hypotension. The patient was started on pressor support and transferred to [place]. The patient states that while in [place] she had a gallbladder sonogram performed and was discharged home on Cipro and Flagyl. The patient states that she did not undergo a HIDA scan or an esophagogastroduodenoscopy while at that facility. The patient also states that she has subsequently not taken her blood pressure medications since her discharge due to fear of recurrent hypotension. The patients blood pressure was noted to be in markedly elevated in the emergency room setting. The patient was subsequently admitted for further workup. This patient had an extended hospitalization with multiple complications. Patient had a partial SBO which took a while to resolve. Patient underwent EGD see report by Dr. Masters at beginning of admission. General surgery was consulted. Patient had a HIDA scan which revealed 0% EF of gallbladder. Patient underwent lap verona by Dr. Spaulding. After lap verona patient had uncontrolled nausea and vomiting and required ngt. Patient for a while did tolerate ngt being clamped due to vomiting. Patient was given TPN. This nausea and vomiting and partial SBO took several weeks to resolve. Patient was treated with IV abx and TPN and fluids. Cultures were negative. Patient had several CT abd and KUBs without acute emergent findings. Patient again had a second EGD without acute findings. We were attempting to transfer patient to a tertiary center; however nausea and vomiting resolved and patient was able to tolerate food and fluids po. BP was controlled. Patient was discharged home; see dc med rec. Greater than 35 mins spent on discharge. Disposition: 01 HOME, SELF-CARE Condition: Stable Health Concerns: Post Hospitalization: new medications and changes needed to prevent readmission or further decline. Pt educated and given instructions on all concerns. Plan of Treatment: Continue with present treatment and follow up plan. Pt is to keep follow up appointment as instructed and take medications as ordered. Prescriptions: New hydrocodone-acetaminophen 5-325 mg Tablet 1 tab PO Q6H MDD 4 PRNQty: 30 RF: 0 metoclopramide HCl [Reglan] 10 mg Tablet 10 mg PO Q6H PRNQty: 90 RF: 0 Transmission Status: Received by [facility] pantoprazole [Protonix] [address] For Susp In Packet 40 mg PO BID Qty: 60 RF: 1 Transmission Status: Received by [facility] No Action [id number]-[id number] [Fioricet] 50-300-40 mg capsule 1 - 2 cap PO Q6HR PRN gabapentin 800 mg Tablet 800 mg PO QHS levothyroxine [Synthroid] 88 mcg Tablet 88 mcg PO DAILY lisinopril-hydrochlorothiazide 20-25 mg Tablet 1 tab PO DAILY montelukast [Singulair] 10 mg Tablet 10 mg PO QHS zolpidem [Ambien CR] 12.5 mg Tablet,Ext Release Multiphase 12.5 mg PO QHS - Follow ups/Referrals Follow ups/Referrals: JOSE ROMANO [Nurse Practitioner] - 12/28/21 1:45 pm NAVNEET MILNER [STAFF PHYSICIAN] - 01/16/22 1:00 pm FRANKI ALMANZAR [STAFF PHYSICIAN] - 12/29/21 8:20 am - Instructions Instructions: Anemia, Bowel Obstruction, [id number], Hypotension, Wyst-jc-Ahus, Flank Pain, Adult, Ntax-sr-Burw, Laparoscopic Cholecystectomy, Care After, Abdominal Pain, Adult, Snls-jv-Jtpd, Upper Endoscopy, Care After, Aplastic Anemia, Hypertension, Adult, Ropp-ni-Pjds, Nausea, Adult, Adml-ff-Yivu, Flank Pain, Adult, [place] Diet Forms: Excuse From Work or School, Precautions for COVID19, [facility], Patient Portal, Social Distancing Print Language: KHMER
== END 2021-12-21 15:15 | disposition home or self-care (01) | DRG 356 ==
LOC: EDACCT# → ER 18:27 → ICU 18:27
PROVIDERS: ADMIT Internal Medicine; ATTEND Internal Medicine
PROC: [UNRECOGNIZED PROCEDURE] (2021-12-15 15:35)